=== PATIENT | female | born 1985 | race Caucasian/White ===

== ENCOUNTER 2017-05-06 07:42 | Inpatient (IN) | payer OTHER ==
[~2017-05-06] VITALS: Ht 157.5 cm; Wt 110.5 kg
[~2017-05-06 07:42] MED LIST: ACETAMINOPHEN-1 EAC1 PO; ANAPROX DS550 MG PO; ASPIR 8181 MG PO; BACLOFEN20 MG PO; CARVEDILOL12.5 MG PO; DEPAKOTE500 MG; GABAPENTIN300 MG PO; HYDROCHLOROTH12.5 M1 PO; HYDROCHLOROTH12.5 MG PO; LIPITOR40 MG PO; METFORMIN HCL500 MG PO; METOPROLOL TART25 MG PO; NAPROXEN500 MG PO; NITROSTAT0.4 MG SL; NORCO 5-325 TA1 EACH PO; PRENATABS FA T1 EACH PO; PROAIR HFA8.5 GM IH; PROPRANOLOL HCL40 MG PO; RANITIDINE HCL150 MG PO; SPRINTEC1 EACH PO; TOPROL XL25 MG PO; TRAMADOL HCL50 MG PO; ZOFRAN4 MG PO
[2017-05-06] MEDS ORDERED: ATENOLOL25 MG PO (08:06)
[2017-05-06] MEDS ORDERED: ATORVASTATIN CA40 MG PO (08:07)
[2017-05-06] MEDS ORDERED: VENTOLIN HFA18 GM INH (11:16)
[2017-05-06] MEDS ORDERED: ADVIL200 MG PO (11:17)
--- NOTE | 2017-05-07 18:46 | EKG ---
[facility] [address] [facility] [place], [place] [address] Signed Normal sinus rhythm Normal ECG When compared with ECG of 26-JAN-2017 21:31, Questionable change in QRS axis Confirmed by KARLA HAYWOOD MD ([id number]) on 05/07/2017 6:46:00 PM Electronically Signed By: KARLA HAYWOOD MD 05/07/17 1846 PATIENT NAME: DOUGLAS CAMPBELL Electrocardiogram DATE OF : 85 PHYSICIAN: KARLA HAYWOOD MD REPORT #: [id number] REPORT IS CONFIDENTIAL AND NOT TO BE RELEASED WITHOUT AUTHORIZATION
[2017-05-08] MEDS ORDERED: PREDNISONE20 MG PO (08:11)
[2017-05-08] MEDS ORDERED: LORAZEPAM1 MG PO (08:12)
--- NOTE | 2017-05-09 10:19 | EKG ---
[facility] [address] [facility] [place] [address] Signed Sinus bradycardia with sinus arrhythmia Abnormal ECG No previous ECGs available Confirmed by CARYN MENDES MD ([id number]) on 05/09/2017 10:19:34 AM Electronically Signed By: CARYN MENDES MD 05/09/17 1019 PATIENT NAME: DOUGLAS CAMPBELL Electrocardiogram DATE OF : [birth year] PHYSICIAN: CARYN MENDES MD REPORT #: [id number] REPORT IS CONFIDENTIAL AND NOT TO BE RELEASED WITHOUT AUTHORIZATION
== END 2017-05-08 10:20 | disposition home or self-care (01) | DRG 198 ==
LOC: ED 07:42 → MS 07:43
PROVIDERS: ADMIT Internal Medicine
DX: D86.9 Sarcoidosis, unspecified (principal); E11.9 Type 2 diabetes mellitus without complications; Z79.82 Long term (current) use of aspirin; I10 Essential (primary) hypertension; E78.5 Hyperlipidemia, unspecified; I25.2 Old myocardial infarction; F31.9 Bipolar disorder, unspecified; Z87.891 Personal history of nicotine dependence; Z79.84 Long term (current) use of oral hypoglycemic drugs
CPT/HCPCS: 36415; 71020; 80048; 80053; 84484; 84703; 85025; 93005; 93010; 93306; 96374; 96375; 96376; 99285; G0378; J2270; J2405; J3010; J7512

== ENCOUNTER 2017-06-25 06:03 | Emergency (ER) | payer OTHER ==
[~2017-06-25] VITALS: Ht 157.5 cm; Wt 110.2 kg
[~2017-06-25 06:03] MED LIST changes: +ADVIL200 MG PO; +ATENOLOL25 MG PO; +ATORVASTATIN CA40 MG PO; +LORAZEPAM1 MG PO; +PREDNISONE20 MG PO; +VENTOLIN HFA18 GM INH
[2017-06-25] MEDS ORDERED: PREDNISONE10 MG PO (06:22)
[2017-06-25] MEDS ORDERED: CYCLOBENZAPRINE10 MG PO (07:01)
== END 2017-06-25 07:15 | disposition home or self-care (01) ==
LOC: ED 06:03
DX: R25.2 Cramp and spasm (principal); I10 Essential (primary) hypertension; I25.2 Old myocardial infarction; F31.9 Bipolar disorder, unspecified; Z98.51 Tubal ligation status; Z79.899 Other long term (current) drug therapy; Z79.52 Long term (current) use of systemic steroids; Z79.82 Long term (current) use of aspirin
CPT/HCPCS: 99283

== ENCOUNTER 2017-06-27 08:18 | Emergency (ER) | payer OTHER ==
[~2017-06-27] VITALS: Ht 157.5 cm; Wt 111.1 kg
[~2017-06-27 08:18] MED LIST changes: +CYCLOBENZAPRINE10 MG PO; +PREDNISONE10 MG PO
[2017-06-27] MEDS ORDERED: CYMBALTA30 MG PO (08:52)
[2017-06-27] MEDS ORDERED: XANAX0.5 MG PO (09:10)
--- NOTE | 2017-06-27 17:18 | EKG ---
[facility] [address] [facility] [place] [address] Signed Normal sinus rhythm Normal ECG When compared with ECG of 06-MAY-2017 20:37, Borderline criteria for Inferior infarct are no longer present Nonspecific T wave abnormality no longer evident in Inferior leads Confirmed by KARLA HAYWOOD MD ([id number]) on 06/27/2017 5:18:14 PM Electronically Signed By: KARLA HAYWOOD MD 06/27/17 1718 PATIENT NAME: DOUGLAS CAMPBELL Electrocardiogram DATE OF : [birth year] PHYSICIAN: KARLA HAYWOOD MD REPORT #: [id number] REPORT IS CONFIDENTIAL AND NOT TO BE RELEASED WITHOUT AUTHORIZATION
== END 2017-06-27 09:36 | disposition home or self-care (01) ==
LOC: ED 08:18
DX: R07.9 Chest pain, unspecified (principal); F41.0 Panic disorder [episodic paroxysmal anxiety]; D86.9 Sarcoidosis, unspecified; I10 Essential (primary) hypertension; F31.9 Bipolar disorder, unspecified; I25.2 Old myocardial infarction; Z79.82 Long term (current) use of aspirin; Z79.52 Long term (current) use of systemic steroids; Z87.891 Personal history of nicotine dependence; Z98.51 Tubal ligation status; Z79.899 Other long term (current) drug therapy
CPT/HCPCS: 71010; 80053; 84484; 85025; 93005; 93010; 96374; 96375; 99284; J1170; J2060

== ENCOUNTER 2017-12-04 22:02 | Emergency (ER) | payer OTHER ==
[~2017-12-04] VITALS: Ht 157.5 cm; Wt 108.9 kg
--- OUTSIDE RECORDS SUMMARY | ~2017-12-04 | XMS | Clinical Summary ---
Demographics + + + | Address | [address] | | | [place] [address] | + + + | Home Phone | | + + + | Preferred Language | Unknown | + + + | Marital Status | | + + + | Zoroastrian Affiliation | NON | + + + [...] | Unavailable | + + + Support +------+ +---------+ + | Name | Relationship | Address | Phone | +------+ +---------+ + ECON | Unknown | | +------+ +---------+ + Care Team Providers + +------+ + | Care Customer Success Specialist Name | Role | Phone | + +------+ + | Balbir Mercer NP | PP | | + +------+ + Source Comments KAYY is fully live on both [facility] Ambulatory and [facility] InPatient.[facility] Allergies No Known Allergies Current Medications + [...] oral tablet,delayed | daily | | | 20 | | e | | release (DR/EC) | | | | 17 | | | + + +--------+---------+------+------+-------+ | atenolol 25 mg | Take by mouth. | | | 04/1 | | Activ | | oral tablet | | | | 05/08 | | e | | | | | | 17 | | | + + +--------+---------+------+------+-------+ | atorvastatin 40 mg | Take by mouth. | | | 04/0 | | Activ | | oral tablet | | | | 20 | | e | | | | [...]
--- OUTSIDE RECORDS SUMMARY | ~2017-12-04 | XMS | Clinical Summary ---
Demographics + + + | Address | [address] | | | [place] [address] | + + + | Home Phone [...] Team Providers + +------+ + | Care Consumer Attorney Name | Role | Phone | + +------+ + | Balbir Mercer NP | PP | | + +------+ + Source Comments KAYY is fully live on both [facility] Ambulatory and [facility] InPatient.[facility] Allergies No Known Allergies Current [...]
[~2017-12-04 22:02] MED LIST changes: +CYMBALTA30 MG PO; +XANAX0.5 MG PO
== END 2017-12-04 22:48 | disposition left against medical advice (07) ==
LOC: ED 22:02
DX: Z53.21 Procedure and treatment not carried out due to patient leaving prior to being seen by health care provider (principal)

== ENCOUNTER 2017-12-10 08:50 | Emergency (ER) | payer OTHER ==
[~2017-12-10] VITALS: Ht 157.5 cm; Wt 113.4 kg
--- OUTSIDE RECORDS SUMMARY | ~2017-12-10 | XMS | Clinical Summary ---
Demographics + + + | Address | [address] | | | [place] [address] | + + + | Home Phone | | + + + | Preferred Language | Unknown | + + + | Marital Status | | + + + | Denominational Affiliation | NON | + + + [...] Team Providers + +------+ + | Care Heating And Cooling Technician Name | Role | Phone | + +------+ + | Balbir Mercer FOREPART LASTER | PP | | + +------+ + Source Comments KAYY is fully live on both [facility] Ambulatory and [facility] InPatient.[facility] Allergies No Known [...] 07/29/2016 | | | (FLU SHOT) | 7 | | | + + + + + Results Not on filefrom Last 3 Months
--- OUTSIDE RECORDS SUMMARY | ~2017-12-10 | XMS | Clinical Summary ---
Demographics + + + | Address | [address] | | | [place] [address] | + + + | Home Phone | | + + + | Preferred Language | Unknown | + + + | Marital Status | | + + + | Zoroastrianism Affiliation | NON | + + + [...] Team Providers + +------+ + | Care Livestock Buyer Name | Role | Phone | + +------+ + | Balbir Mercer SUSPECT ARTIST | PP | | + +------+ + Source Comments KAYY is fully live on both [facility] Ambulatory and [facility] InPatient.[facility] Allergies No Known Allergies Current Medications [...]
== END 2017-12-10 09:03 | disposition home or self-care (01) ==
LOC: ED 08:50
DX: K08.89 Other specified disorders of teeth and supporting structures (principal)

== ENCOUNTER 2018-02-03 12:39 | Emergency (ER) | payer OTHER ==
[~2018-02-03] VITALS: Ht 157.5 cm; Wt 265.0 kg
--- OUTSIDE RECORDS SUMMARY | 2018-02-03 13:08 | XMS | Clinical Summary ---
Demographics + + + | Address | [address] | | | [place] [address] | + + + | Home Phone | | + + + | Preferred Language | Unknown | + + + | Marital Status | | + + + | Druze Affiliation | NON | + + + | Race | White | + + + | Ethnic Group | Not or | + + + Author + + + | Author | [facility] | + + + | Organization | [facility] | + + + | Address | Unknown | + + + | Phone | Unavailable | + + + Support + + +---------+ + | Name | Relationship | Address | Phone | + + +---------+ + | Arabella Isidro | ECON | Unknown | | + + +---------+ + Care Team Providers + +------+ + | Care Transportation Equipment Painter Name | Role | Phone | + +------+ + | Balbir Mercer INTAKE WORKER | PP | | + +------+ + Source Comments KAYY is fully live on both [facility] Ambulatory and [facility] InPatient.[facility] Allergies No Known Allergies Current Medications + + +--------+---------+------+------+-------+ | Prescription | Sig. | Disp. | Refills | Star | End | Statu | | | | | | t | Date | s | | | | | | Date | | | + + +--------+---------+------+------+-------+ | albuterol 90 | Inhale by mouth. | | | | | Activ | | mcg/actuation | | | | | | e | | inhalation HFA | | | | | | | | aerosol inhaler | | | | | | | + + +--------+---------+------+------+-------+ | aspirin EC 81 mg | Take one tablet | | | 04/0 | | Activ | | oral tablet,delayed | daily | | | 420 | | e | | release (DR/EC) | | | | 17 | | | + + +--------+---------+------+------+-------+ | atenolol 25 mg | Take by mouth. | | | 04/1 | | Activ | | oral tablet | | | | 720 | | e | | | | | | 17 | | | + + +--------+---------+------+------+-------+ | atorvastatin 40 mg | Take by mouth. | | | 04/0 | | Activ | | oral tablet | | | | 4/20 | | e | | | | | | 17 | | | + + +--------+---------+------+------+-------+ | gabapentin 300 mg | Take by mouth. | | | | | Activ | | oral capsule | | | | | | e | + + +--------+---------+------+------+-------+ | metFORMIN 500 mg | Take by mouth. | | | | | Activ | | oral tablet | | | | | | e | + + +--------+---------+------+------+-------+ | MULTIVITAMIN ORAL | Take by mouth. | | | | | Activ | | | | | | | | e | + + +--------+---------+------+------+-------+ | nitroglycerin 0.4 | Place under tongue. | | | 04/0 | | Activ | | mg sublingual | | | | 4/20 | | e | | tablet, sublingual | | | | 17 | | | + + +--------+---------+------+------+-------+ | | Take 1 tablet by | 10 | 0 | 05/3 | | Activ | | HYDROcodone-acetamin | mouth every four | tablet | | 0/20 | | e | | ophen (NORCO) 5-325 | hours as needed. | | | 17 | | | | mg oral tablet | | | | | | | + + +--------+---------+------+------+-------+ Active Problems + + + | Problem | Noted Date | + + + | Sarcoid (HCC) | 04/04/2017 | + + + | Mediastinal adenopathy | 03/12/2017 | + + + Family History + + +------+ + | Medical History | Relation | Name | Comments | + + +------+ + | None | Brother | | | + + +------+ + | None | Child | | | + + +------+ + | None | Father | | | + + +------+ + | None | Mother | | | + + +------+ + | None | Other | | | + + +------+ + | None | Sister | | | + + +------+ + | Amblyopia | Neg Hx | | | + + +------+ + | Blindness | Neg Hx | | | + + +------+ + | Cancer | Neg Hx | | | + + +------+ + | Cataract | Neg Hx | | | + + +------+ + | Diabetes | Neg Hx | | | + + +------+ + | Glasses | Neg Hx | | | + + +------+ + | Glaucoma | Neg Hx | | | + + +------+ + | Heart Disease | Neg Hx | | | + + +------+ + | Macular degeneration | Neg Hx | | | + + +------+ + | Retinal detachment | Neg Hx | | | + + +------+ + | Retinitis pigmentosa | Neg Hx | | | + + +------+ + | Strabismus | Neg Hx | | | + + +------+ + + +------+--------+ + | Relation | Name | Status | Comments | + +------+--------+ + | Brother | | | | + +------+--------+ + | Child | | | | + +------+--------+ + | Father | | | | + +------+--------+ + | Mother | | | | + +------+--------+ + | Other | | | | + +------+--------+ + | Sister | | | | + +------+--------+ + Social History + +-------+ +--------+ + | Tobacco Use | Types | Packs/Day | Years | Date | | | | | Used | | + +-------+ +--------+ + | Former Smoker | | | | Quit: 03/18/2010 | + +-------+ +--------+ + + +---+---+---+ | Smokeless Tobacco: | | | | | Never Used | | | | + +---+---+---+ + + | Comments: quit about 6 years ago | + + + + + | Sex Assigned at | Date Recorded | | | | + + + | Not on file | | + + + Last Filed Vital Signs + + + + | Vital Sign | Reading | Time Taken | + + + + | Blood Pressure | 116/88 | 03/18/2017 12:15 PM PDT | + + + + | Pulse | 58 | 03/18/2017 12:15 PM PDT | + + + + | Temperature | 36.3 C (97.3 F) | 03/18/2017 12:00 PM PDT | + + + + | Respiratory Rate | 16 | 03/18/2017 12:15 PM PDT | + + + + | Oxygen Saturation | 97% | 03/18/2017 12:00 PM PDT | + + + + | Inhaled Oxygen | - | - | | Concentration | | | + + + + | Weight | 117.4 kg (258 lb | 03/18/2017 7:00 AM PDT | | | 13.1 oz) | | + + + + | Height | 157.5 cm (5' 2") | 03/18/2017 7:00 AM PDT | + + + + | Body Mass Index | 47.34 | 03/18/2017 7:00 AM PDT | + + + + Plan of Treatment + + + + + | Health Maintenance | Due Date | Last Done | Comments | + + + + + | INFLUENZA VACCINE | | 07/29/2016 | | | (FLU SHOT) | 8 | | | + + + + + Results Not on filefrom Last 3 Months
--- OUTSIDE RECORDS SUMMARY | 2018-02-03 13:08 | XMS | Encounter Summary ---
Demographics + + + | Address | [address] | | | [place] [address] | + + + | Home Phone | | + + + | Preferred Language | Unknown | + + + | Marital Status | | + + + | Mandaen Affiliation | 1013 | + + + | Race | Unknown | + + + | Ethnic Group | Unknown | + + + Author + + + | Author | [facility] | | | and [place] | + + + | Organization | [facility] | | | and [place] | + + + | Address | Unknown | + + + | Phone | Unavailable | + + + Support + + + + + | Name | Relationship | Address | Phone | + + + + + | Fabio Amaro | ECON | [address] | | | | | [place] | | | | | [address] | | + + + + + | Arabella Isidro | ECON | Unknown | | + + + + + Care Team Providers + +------+ + | Care Telecommunications Equipment Installer Name | Role | Phone | + +------+ + | Balbir Mercer NP | PCP | | + +------+ + Reason for Visit +--------+ + | Reason | Comments | +--------+ + | Other | chest pain/dizziness | +--------+ + Encounter Details +--------+ + + + + | Date | Type | Department | Care Team | Description | +--------+ + + + + | 02/03/ | Telephone | [facility] | Coy Randall | Other (chest | | 2018 | | CARDIOLOGY [address] | MD Selvin [address] | pain/dizziness) | | | | [place], | [address] [place] | | | | | [place] [address] | [place] [address] | | | | | [phone] | [phone] | | | | | | | | +--------+ + + + + Social History + + + +--------+ + | Tobacco Use | Types | Packs/Day | Years | Date | | | | | Used | | + + + +--------+ + | Former Smoker | Cigarettes | 0.5 | 12 | 10/21/1998 - | | | | | | 01/19/2011 | + + + +--------+ + + +---+---+---+ | Smokeless Tobacco: | | | | | Never Used | | | | + +---+---+---+ + + +---------+ + | Alcohol Use | Drinks/We | oz/Week | Comments | | | ek | | | + + +---------+ + | No | 1 | 0.6 | | | | Glasses | | | | | of wine | | | + + +---------+ + + + + | Sex Assigned at | Date Recorded | | | | + + + | Not on file | | + + + as of this encounter Functional Status + + + + | Functional Status | Response | Date of Assessment | + + + + | Are you deaf or do you have serious | No | 01/21/2017 | | difficulty hearing? | | | + + + + | Are you blind or do you have serious | No | 01/21/2017 | | difficulty seeing, even when wearing | | | | glasses? | | | + + + + | Do you have serious difficulty walking or | No | 01/21/2017 | | climbing stairs? (5 years old or older) | | | + + + + | Do you have difficulty dressing or bathing? | No | 01/21/2017 | | (5 years old or older) | | | + + + + | Because of a physical, mental, or emotional | No | 01/21/2017 | | condition, do you have difficulty doing | | | | errands alone such as visiting a doctor's | | | | office or shopping? [15 years old or | | | | older)] | | | + + + + + + + + | Cognitive Status | Response | Date of Assessment | + + + + | Because of a physical, mental, or emotional | No | 01/21/2017 | | condition, do you have serious difficulty | | | | concentrating, remembering, or making | | | | decisions? (5 years old or older) | | | + + + + as of this encounter Plan of Treatment +--------+---------+ + + + | Date | Type | Specialty | Care Team | Description | +--------+---------+ + + + | 02/10/ | Office | Cardiology | Coy Randall | | | 2017 | Visit | | MD Selvin [address] | | | | | | [address] | | | | | | [place] [address] | | | | | | [phone] | | | | | | | | +--------+---------+ + + + as of this encounter Visit Diagnoses Not on filein this encounter"
--- OUTSIDE RECORDS SUMMARY | 2018-02-03 13:08 | XMS | Clinical Summary ---
Demographics + + + | Address | [address] | | | [place] [address] | + + + | Home Phone | | + + + | Preferred Language | Unknown | + + + | Marital Status | | + + + | Mandaen Affiliation | 1013 | + + + | Race | Unknown | + + + | Ethnic Group | Unknown | + + + Author + + + | Author | [facility] | | | and [place] | + + + | Organization | [facility] | | | and [place] | + + + | Address | Unknown | + + + | Phone | Unavailable | + + + Support + + + + + | Name | Relationship | Address | Phone | + + + + + | Fabio Amaro | ECON | [address] | | | | | [place] | | | | | [address] | | + + + + + | Arabella Isidro | ECON | Unknown | | + + + + + Care Team Providers + +------+ + | Care Auto Body Repairer Name | Role | Phone | + +------+ + | Balbir Mercer NP | PP | | + +------+ + Allergies No Known Allergies Current Medications + + +--------+---------+------+------+-------+ | Prescription | Sig. | Disp. | Refills | Star | End | Statu | | | | | | t | Date | s | | | | | | Date | | | + + +--------+---------+------+------+-------+ | metFORMIN | Take 500 mg by mouth | | | | | Activ | | (GLUCOPHAGE) 500 mg | daily (with | | | | | e | | tablet | breakfast). | | | | | | + + +--------+---------+------+------+-------+ | gabapentin | Take 300 mg by mouth | | | | | Activ | | (NEURONTIN) 300 mg | nightly. | | | | | e | | capsule | | | | | | | + + +--------+---------+------+------+-------+ | Multiple | Take 1 tablet by | | | | | Activ | | Vitamins-Minerals | mouth Daily. | | | | | e | | (MULTIVITAMIN ADULT | | | | | | | | PO) | | | | | | | + + +--------+---------+------+------+-------+ | albuterol | Inhale 2 puffs into | | | | | Activ | | (VENTOLIN HFA) 90 | the lungs every 4 | | | | | e | | mcg/puff inhaler | hours as needed for | | | | | | | | Wheezing. | | | | | | + + +--------+---------+------+------+-------+ | atorvaSTATin | Take 1 tablet by | 30 | 1 | 04/0 | | Activ | | (LIPITOR) 40 mg | mouth nightly. | tablet | | 4/20 | | e | | tablet | | | | 17 | | | + + +--------+---------+------+------+-------+ | nitroglycerin | Place 1 tablet under | 30 | 0 | 04/0 | | Activ | | (NITROSTAT) 0.4 mg | the tongue every 5 | tablet | | 4/20 | | e | | SL tablet | minutes as needed | | | 17 | | | | | for Chest pain. | | | | | | + + +--------+---------+------+------+-------+ | aspirin 81 MG | Take one tablet | | 0 | 04/0 | | Activ | | tablet | daily | | | 4/20 | | e | | | | | | 17 | | | + + +--------+---------+------+------+-------+ | atenolol | Take 1 tablet by | 30 | 11 | 04/1 | | Activ | | (TENORMIN) 25 mg | mouth Daily. | tablet | | 7/20 | | e | | tablet | | | | 17 | | | + + +--------+---------+------+------+-------+ | predniSONE | Take 0.5 tablets by | 30 | 1 | 08/2 | | Activ | | (DELTASONE) 20 mg | mouth Daily. | tablet | | 8/20 | | e | | tabletIndications: | | | | 17 | | | | Sarcoid | | | | | | | + + +--------+---------+------+------+-------+ Active Problems + + + | Problem | Noted Date | + + + | Sarcoid | 05/28/2017 | + + + | Chest pain with moderate risk of acute coronary syndrome | 01/19/2017 | + + + | Elevated troponin | 01/19/2017 | + + + | Essential hypertension | 01/19/2017 | + + + | Hilar lymphadenopathy | 01/19/2017 | + + + | Morbid obesity with BMI of 40.0-44.9, adult (HCC) | 01/19/2017 | + + + | Family history of ischemic heart disease before age 50 | 01/19/2017 | + + + | Elevated AST (SGOT) | 01/19/2017 | + + + | Intermittent palpitations | 01/19/2017 | + + + | Chronic midline thoracic back pain | 01/19/2017 | + + + | PCOS (polycystic ovarian syndrome) | | + + + + + | Overview: On metformin | + + Resolved Problems + + + + | Problem | Noted | Resolved | | | Date | Date | + + + + | Mediastinal lymphadenopathy | 01/20/20 | | | | 17 | 7 | + + + + Encounters +--------+ + + + + | Date | Type | Specialty | Care Team | Description | +--------+ + + + + | 02/03/ | Telephone | | Coy Randall | Other (chest | | 2018 | | | MD [facility]vin | pain/dizziness) | +--------+ + + + + from Last 3 Months Immunizations + + + + | Name | Dates Previously Given | Next Due | + + + + | INFLUENZA PF | 07/29/2016 | | | TRIVALENT(PED/ADOL/A | | | | DULT)ARNOLKT | | | + + + + | MMR, 2 DOSE | 11/07/1999 | | | (PED/ADULT) | | | + + + + Family History + + +---------+ + | Medical History | Relation | Name | Comments | + + +---------+ + | Atrial Fibrillation | Brother | 1/2 | | + + +---------+ + | Hypertension | Brother | 1/2 | | + + +---------+ + | Asthma | Father | bill | | + + +---------+ + | Coronary artery | Father | bill | CT | | disease | | | | + + +---------+ + | Diabetes, NIDDM | Father | bill | | + + +---------+ + | Heart disease | Father | bill | | + + +---------+ + | High blood pressure | Father | bill | | + + +---------+ + | High cholesterol | Father | bill | | + + +---------+ + | Vision loss | Father | bill | | + + +---------+ + | Coronary artery | Maternal | | | | disease | Grandmoth | | | | | er | | | + + +---------+ + | Heart failure | Maternal | | from this | | | Grandmoth | | | | | er | | | + + +---------+ + | Arthritis | Mother | Arabella | | | | | Isidro | | + + +---------+ + | COPD | Mother | Arabella | | | | | Isidro | | + + +---------+ + | Cancer | Mother | Arabella | | | | | Isidro | | + + +---------+ + | Coronary artery | Mother | Arabella | | | disease | | Isidro | | + + +---------+ + | Depression | Mother | Arabella | | | | | Isidro | | + + +---------+ + | Diabetes, NIDDM | Mother | Arabella | | | | | Isidro | | + + +---------+ + | Heart disease | Mother | Arabella | | | | | Isidro | | + + +---------+ + | High blood pressure | Mother | Arabella | | | | | Isidro | | + + +---------+ + | High cholesterol | Mother | Arabella | | | | | Isidro | | + + +---------+ + + +---------+ + + | Relation | Name | Status | Comments | + +---------+ + + | Brother | 1/2 | Alive | | + +---------+ + + | Father | bill | Alive | | + +---------+ + + | Maternal Grandmother | | | | + +---------+ + + | Mother | Arabella | Alive | | | | Isidro | | | + +---------+ + + | Sister | 1/2 | Alive | | + +---------+ + + Social History + + + [...] | | + +---+---+---+ + + | Tobacco Cessation: Counseling Given: No | + + + + +---------+ + | Alcohol Use [...] + + + | Blood Pressure | 120/82 | 06/16/2017 1309 PDT | + + + + | Pulse | 66 | 06/16/20171308 PDT | + + + + | Temperature | 35.7 C (96.3 F) | 05/28/2017 1143 PDT | + + + + | Respiratory Rate | 16 | 06/16/2017 1118 PDT | + + + + | Oxygen Saturation | 98% | 06/16/20171308 PDT | + + + + | Inhaled Oxygen | - | - | | Concentration | | | + + + + | Weight | 116.1 kg (255 lb | 06/16/20171308 PDT | | | 14.4 oz) | | + + + + | Height | 157.5 cm (5' 2") | 06/16/20171308 PDT | + + + + | Body Mass Index | 46.8 | 06/16/20171308 PDT | + + + + Plan of Treatment +--------+---------+ + + + | Date | Type | Specialty | Care Team | Description | +--------+---------+ + + + | 02/10/ | Office | | Coy Randall | | | 2018 | Visit | | MD Selvin [address] | | | | | | [address] | | | | | | [place] [address] | | | | | | [phone] | | | | | | | | +--------+---------+ + + + + + + + + | Health Maintenance | Due Date | Last Done | Comments | + + + + + | Vaccine: | | | | | Dtap/Tdap/Td (1 - | 4 | | | | Tdap) | | | | + + + + + | CERVICAL CANCER | | | | | SCREENING (PAP EVERY | 6 | | | | 3 YEARS 21-64 ) | | | | + + + + + | Vaccine: Influenza | | 07/29/2016 | | | (Season Ended) | 8 | | | + + + + + Results Not on filefrom Last 3 Months Insurance + +--------+ +--------+ +---------+ | Payer | Benefi | Subscriber | Type | Phone | Address | | | t Plan | ID | | | | | | / | | | | | | | Group | | | | | + +--------+ +--------+ +---------+ | [employer] | [employer] | [id number] | Medica | [phone] | | | MEDICAID HMO | HEALTH | | id | [id number] | | | | [place] | | | | | | | [place] | | | | | + +--------+ +--------+ +---------+ + +--------+ +--------+ + + | Guarantor Name | Accoun | Relation to | Date | Phone | Billing Address | | | t Type | Patient | of | | | | | | | | | | + +--------+ +--------+ + + | DOUGLAS AMARO | Person | Self [birth year] | Home: | [address] | | | al/Fam | | 1984 | [phone] | [place], [place] | | | [place]c | | | [phone] | [address] | + +--------+ +--------+ + +
--- OUTSIDE RECORDS SUMMARY | 2018-02-03 13:08 | XMS | Clinical Summary ---
Demographics + + + | Address | [address] | | | [place] [address] | + + + | Home Phone | | + + + | Preferred Language | Unknown | + + + | Marital Status | | + + + | Anglican Affiliation | NON | + + + [...] Team Providers + +------+ + | Care Senior Biostatistician/Group Leader Name | Role | Phone | + +------+ + | Balbir Mercer RADIOLOGY TEACHER | PP | | + +------+ + Source Comments KAYY is fully live on both [facility] Ambulatory and [facility] InPatient.[facility] Allergies No Known Allergies Current Medications [...]
--- OUTSIDE RECORDS SUMMARY | 2018-02-03 13:09 | XMS | Encounter Summary ---
Demographics + + + | Address | [address] | | | [place] [address] | + + + | Home Phone | | + + + | Preferred Language | Unknown | + + + | Marital Status | | + + + | Restorationism Affiliation | 1013 | + + + | Race | Unknown | + + + | Ethnic Group | Unknown | + + + Author + + + | Author | [facility] | | | and [place] | + + + | Organization | [facility] | | | and [...] [place] | | | | | [address] | | + + + + + | Arabella Isidro | ECON | Unknown | | + + + + + Care Team Providers + +------+ + | Care Billing Representative Name | Role | Phone | + [...] + | 02/03/ | Telephone | [facility] | Coy Randall | Other (chest | | 2018 | | CARDIOLOGY [address] | MD Selvin [address] | pain/dizziness) | | | | [place], | [address] [place] | | | | | [place] [address] | [place] [address] | | | | | [phone] | [phone] | | | | | | | [...] | | | | [place] [address] | | | | | | [phone] | | | | | | | | +--------+---------+ + + + as of this encounter Visit Diagnoses Not on filein this encounter"
--- OUTSIDE RECORDS SUMMARY | 2018-02-03 13:09 | XMS | Clinical Summary ---
Demographics + + + | Address | [address] | | | [place] [address] | + + + | Home Phone | | + + + | Preferred Language | Unknown | + + + | Marital Status | | + + + | Hindu Affiliation | 1013 | + + + | Race | Unknown | + + + | Ethnic Group | Unknown | + + + Author + + + | Author | [facility] | | | and [place] | + + + | Organization | [facility] | | | and [...] [place] | | | | | [address] | | + + + + + | Arabella Isidro | ECON | Unknown | | + + + + + Care Team Providers + +------+ + | Care Automotive Dismantler Name | Role | Phone | + [...] Coronary artery | Father | bill | [place] | | disease | | | | [...] | | | | [place] [address] | | | | | | [phone] | | | | | | | [...] | mc | | | [phone] | [phone] | + +--------+ +--------+ + +
[2018-02-03] MEDS ORDERED: PREDNISONE20 MG PO (14:56)
[2018-02-03] MEDS ORDERED: VENTOLIN HFA18 GM INH (14:57)
--- NOTE | 2018-02-03 17:14 | EKG ---
[facility] [address] [facility] [place] [address] Signed Normal sinus rhythm Normal ECG When compared with ECG of 27-JUN-2017 08:20, No significant change was found Confirmed by CARYN MENDES MD ([id number]) on 02/03/2018 5:14:37 PM Electronically Signed By: CARYN MENDES MD 02/03/18 1714 PATIENT NAME: DOUGLAS CAMPBELL Electrocardiogram DATE OF : [birth year] PHYSICIAN: CARYN MENDES MD REPORT #: [id number] REPORT IS CONFIDENTIAL AND NOT TO BE RELEASED WITHOUT AUTHORIZATION
== END 2018-02-03 15:30 | disposition home or self-care (01) ==
LOC: ED 12:39
DX: J40 Bronchitis, not specified as acute or chronic (principal); J98.01 Acute bronchospasm; R07.2 Precordial pain; D86.9 Sarcoidosis, unspecified; I10 Essential (primary) hypertension; I25.2 Old myocardial infarction; Z79.82 Long term (current) use of aspirin; Z79.899 Other long term (current) drug therapy; Z79.84 Long term (current) use of oral hypoglycemic drugs
CPT/HCPCS: 71046; 80053; 84484; 85025; 93005; 93010; 99284; J7512

== ENCOUNTER 2018-02-23 11:56 | Emergency (ER) | payer OTHER ==
[~2018-02-23] VITALS: Ht 157.5 cm; Wt 118.0 kg
[2018-02-23] MEDS ORDERED: AMOXICILLIN500 MG PO (12:15)
--- NOTE | 2018-02-24 08:03 | EKG ---
[facility] [address] [facility] [place], [place] [address] Signed Normal sinus rhythm Normal ECG When compared with ECG of 03-FEB-2018 12:44, ST elevation now present in Inferior leads Confirmed by KARLA HAYWOOD MD ([id number]) on 02/24/2018 8:03:45 AM Electronically Signed By: KARLA HAYWOOD MD 02/24/18 0803 PATIENT NAME: DOUGLAS CAMPBELL Electrocardiogram DATE OF : [birth year] PHYSICIAN: KARLA HAYWOOD MD REPORT #: [id number] REPORT IS CONFIDENTIAL AND NOT TO BE RELEASED WITHOUT AUTHORIZATION
--- NOTE | 2018-02-24 08:04 | EKG ---
[facility] [address] [facility] [place], [place] [address] Signed Sinus bradycardia with sinus arrhythmia Otherwise normal ECG When compared with ECG of 23-FEB-2018 12:02, (Unconfirmed) ST no longer elevated in Inferior leads Confirmed by KARLA HAYWOOD MD ([id number]) on 02/24/2018 8:03:54 AM Electronically Signed By: KARLA HAYWOOD MD 02/24/18 0804 PATIENT NAME: DOUGLAS CAMPBELL Electrocardiogram DATE OF : [birth year] PHYSICIAN: KARLA HAYWOOD MD REPORT #: [id number] REPORT IS CONFIDENTIAL AND NOT TO BE RELEASED WITHOUT AUTHORIZATION
== END 2018-02-23 19:32 | disposition short-term general hospital (02) ==
LOC: ED 11:56
DX: I21.4 Non-ST elevation (NSTEMI) myocardial infarction (principal); D86.9 Sarcoidosis, unspecified; M54.9 Dorsalgia, unspecified; I10 Essential (primary) hypertension; Z79.82 Long term (current) use of aspirin; Z79.899 Other long term (current) drug therapy; Z79.84 Long term (current) use of oral hypoglycemic drugs
CPT/HCPCS: 71045; 80053; 83690; 84484; 84703; 85025; 85610; 85730; 93005; 93010; 96374; 96375; 96376; 99291; 99292; J1170; J1644; J2060; J2405

== ENCOUNTER 2018-03-29 16:23 | Emergency (ER) | payer OTHER ==
[~2018-03-29] VITALS: Ht 157.5 cm; Wt 118.0 kg
[~2018-03-29 16:23] MED LIST changes: +AMOXICILLIN500 MG PO
[2018-03-29] MEDS ORDERED: NITROGLYCERIN0.4 MG SL (16:32)
[2018-03-29] MEDS ORDERED: CLOPIDOGREL75 MG PO (16:32)
[2018-03-29] MEDS ORDERED: METOPROLOL TART25 MG PO (16:32)
[2018-03-29] MEDS ORDERED: PLAVIX75 MG PO (16:42)
[2018-03-29] MEDS ORDERED: METOPROLOL SUCC25 MG PO (16:42)
== END 2018-03-29 16:50 | disposition home or self-care (01) ==
LOC: ED 16:23
DX: Z76.0 Encounter for issue of repeat prescription (principal); I10 Essential (primary) hypertension; Z79.82 Long term (current) use of aspirin; Z79.84 Long term (current) use of oral hypoglycemic drugs; Z79.899 Other long term (current) drug therapy
CPT/HCPCS: 99281

== ENCOUNTER 2018-04-10 13:31 | Emergency (ER) | payer OTHER ==
[~2018-04-10] VITALS: Ht 157.5 cm; Wt 118.0 kg
[~2018-04-10 13:31] MED LIST changes: +CLOPIDOGREL75 MG PO; +METOPROLOL SUCC25 MG PO; +NITROGLYCERIN0.4 MG SL; +PLAVIX75 MG PO
[2018-04-10] MEDS ORDERED: PROMETHAZINE12.5 M1 PO (17:35)
--- NOTE | 2018-04-11 08:13 | EKG ---
[facility] [address] [facility] [place], [place] [address] Signed Normal sinus rhythm Normal ECG No previous ECGs available Confirmed by KARLA HAYWOOD MD ([id number]) on 04/11/2018 8:13:23 AM Electronically Signed By: KARLA HAYWOOD MD 04/11/188[address] PATIENT NAME: DOUGLAS CAMPBELL Electrocardiogram DATE OF : [birth year] PHYSICIAN: KARLA HAYWOOD MD REPORT #: [id number] REPORT IS CONFIDENTIAL AND NOT TO BE RELEASED WITHOUT AUTHORIZATION
== END 2018-04-10 18:00 | disposition home or self-care (01) ==
LOC: ED 13:31
DX: F32.9 Major depressive disorder, single episode, unspecified (principal); R11.0 Nausea; I10 Essential (primary) hypertension; Z79.82 Long term (current) use of aspirin; Z79.899 Other long term (current) drug therapy
CPT/HCPCS: 80053; 80176; 81001; 84443; 84703; 85025; 93005; 93010; 99284; G0480

== ENCOUNTER 2018-06-14 14:50 | Emergency (ER) | payer OTHER ==
[~2018-06-14] VITALS: Ht 157.5 cm; Wt 118.0 kg
[~2018-06-14 14:50] MED LIST changes: +PROMETHAZINE12.5 M1 PO
[2018-06-14] MEDS ORDERED: ULTRAM50 MG PO (17:01)
--- NOTE | 2018-06-15 13:52 | EKG ---
[facility] [address] [facility] [place] [address] Signed Normal sinus rhythm Normal ECG When compared with ECG of 10-APR-2018 13:41, No significant change was found Confirmed by CARYN MENDES MD ([id number]) on 06/15/2018 1:52:47 PM Electronically Signed By: CARYN MENDES MD 06/15/18 1352 PATIENT NAME: DOUGLAS CAMPBELL DEVAN Electrocardiogram DATE OF : [birth year] PHYSICIAN: CARYN MENDES MD REPORT #: [id number] REPORT IS CONFIDENTIAL AND NOT TO BE RELEASED WITHOUT AUTHORIZATION
== END 2018-06-14 17:12 | disposition home or self-care (01) ==
LOC: ED 14:50
DX: R07.89 Other chest pain (principal); D86.9 Sarcoidosis, unspecified; I10 Essential (primary) hypertension; F31.9 Bipolar disorder, unspecified; Z79.899 Other long term (current) drug therapy; Z79.82 Long term (current) use of aspirin
CPT/HCPCS: 71045; 80053; 83880; 84484; 85025; 85379; 93005; 93010; 99285

== ENCOUNTER 2018-06-18 16:22 | Emergency (ER) | payer OTHER ==
[~2018-06-18] VITALS: Ht 157.5 cm; Wt 123.9 kg
[~2018-06-18 16:22] MED LIST changes: +ULTRAM50 MG PO
== END 2018-06-18 17:26 | disposition home or self-care (01) ==
LOC: ED 16:22
DX: S93.602A Unspecified sprain of left foot, initial encounter (principal); I10 Essential (primary) hypertension; Z87.891 Personal history of nicotine dependence; Z79.899 Other long term (current) drug therapy; X58.XXXA Exposure to other specified factors, initial encounter; Y93.02 Activity, running
CPT/HCPCS: 73630; 99283

== ENCOUNTER 2018-10-22 23:03 | Emergency (ER) | payer OTHER ==
[~2018-10-22] VITALS: Ht 157.5 cm; Wt 124.0 kg
--- OUTSIDE RECORDS SUMMARY | 2018-10-22 23:08 | XMS ---
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 Details: [facility] CRITERIA MET - Group Notification CARE PROVIDERS PAIGE PATRICK Physician Crop Supervisor 06/15/2018-Current PHONE: [phone] MARISELA VITAL Primary Care Current PHONE: [phone] Ronak Perez Primary Care Current PHONE: Unknown Darrell has no Care Guidelines for this patient. Care History Medical/Surgical 06/19/2018 [facility] - PATIENTLY CURRENTLY HAS ELZBIETA PATRICK PCP. - PATIENT HAS FOLLOW UP WITH PCP IN THE OFFICE BUT NEEDS TO SEE PRINT PRODUCTION MANAGER. - CHW REFERRING PATIENT TO [facility] TO HELP PATIENT WITH FURTHER MANAGEMENT OF HEALTH. - [facility] CAN BE CONTACTED- ADOLFO- [phone]. [place] VISIT COUNT (12 MO.) 9 IZ[facility]LLA Yan TOTAL 9 NOTE: Visits indicate total known visits. 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) drug therapy - Exposure to other specified factors, initial encounter 06/14/2018 14:51 [place] [place] TYPE: Emergency COMPLAINT: - CHEST PAIN DIAGNOSES: - penitentiary (current) use of aspirin - Other chest pain - Precordial pain - Sarcoidosis, unspecified - Essential (primary) hypertension - Bipolar disorder, unspecified - Other job compositor (current) drug therapy 04/10/2018 13:31 [place] [place] TYPE: Emergency COMPLAINT: - POSS OD DIAGNOSES: - Other skilled nursing (current) drug therapy - Essential (primary) hypertension - Encounter for other general examination - Major depressive disorder, single episode, unspecified - penitentiary (current) use of aspirin - Nausea 03/29/2018 16:23 [place] [place] TYPE: Emergency COMPLAINT: - MEDICATION REFILL REQUEST DIAGNOSES: - penitentiary (current) use of aspirin - Encounter for issue of repeat prescription - INTERMEDIATE (CURRENT) USE OF ORAL HYPOGLYCEMIC DRUGS - Other job compositor (current) drug therapy - traffic checker (current) use of oral hypoglycemic drugs - Essential (primary) hypertension 02/23/2018 11:56 [place] [place] TYPE: Emergency COMPLAINT: - CHEST PAIN DIAGNOSES: - Essential (primary) hypertension - penitentiary (current) use of oral hypoglycemic drugs - Non-ST elevation (NSTEMI) myocardial infarction - Sarcoidosis, unspecified - Dorsalgia, unspecified - traffic checker (current) use of aspirin - Other skilled nursing (current) drug therapy - INTERMEDIATE (CURRENT) USE OF ORAL HYPOGLYCEMIC DRUGS - Nausea with vomiting, unspecified 02/03/2018 12:39 [place] TYPE: Emergency COMPLAINT: - CHEST PAIN DIAGNOSES: - Essential (primary) hypertension - Other skilled nursing (current) drug therapy - Acute bronchospasm - Sarcoidosis, unspecified - Bronchitis, not specified as acute or chronic - penitentiary (current) use of oral hypoglycemic drugs - penitentiary (current) use of aspirin - Old myocardial infarction - INTERMEDIATE (CURRENT) USE OF ORAL HYPOGLYCEMIC DRUGS - Precordial pain 12/10/2017 08:50 IZABELLA [place] TYPE: Emergency COMPLAINT: - R SIDE TOOTH PAIN DIAGNOSES: - OTHER SPECIFIED DISORDERS OF TEETH AND SUPPORTING STRUCTURES - Other specified disorders of teeth and supporting structures 12/04/2017 22:02 I[facility]LLA [facility] TYPE: Emergency COMPLAINT: - DENTAL PAIN DIAGNOSES: - OTHER SPECIFIED DISORDERS OF TEETH AND SUPPORTING STRUCTURES - Procedure and treatment not carried out due to patient leaving prior to being seen by health care provider - Other specified disorders of teeth and supporting structures INPATIENT VISIT TRACKING (12 MO.) 02/23/2018 20:45 [facility] TYPE: Medical Surgical COMPLAINT: - NON-STEMI DIAGNOSES: 0. Other chest pain 1. Non-ST elevation (NSTEMI) myocardial infarction 2. Body mass index (BMI) 45.0-49.9, adult 3. Polycystic ovarian syndrome 4. Cannabis use, unspecified, uncomplicated 5. Morbid (severe) obesity due to excess calories 6. Headache 7. Essential (primary) hypertension 8. Rheumatic disorders of both mitral and tricuspid valves 9. Anxiety disorder, unspecified 10. Sarcoidosis of lung 11. Hyperlipidemia, unspecified 12. 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 traffic checker (current) use of aspirin 14. traffic checker (current) use of systemic steroids 15. Personal history of nicotine dependence 16. Old myocardial infarction [email or web address]
--- NOTE | 2018-10-23 22:12 | EKG ---
[facility] [address] [facility] [place], [place] [address] Signed Sinus bradycardia Otherwise normal ECG When compared with ECG of 14-JUN-2018 14:56, No significant change was found Confirmed by COLT SANTOS DO ([id number]) on 10/23/2018 10:12:00 PM Electronically Signed By: COLT SANTOS DO 10/23/18 2212 PATIENT NAME: DOUGLAS CAMPBELL DEVAN Electrocardiogram DATE OF : [birth year] PHYSICIAN: COLT SANTOS DO REPORT #: [id number] REPORT IS CONFIDENTIAL AND NOT TO BE RELEASED WITHOUT AUTHORIZATION
--- NOTE | 2018-10-23 22:17 | EKG ---
[facility] [address] [facility] [place], [place] [address] Signed Sinus bradycardia Otherwise normal ECG When compared with ECG of 22-OCT-2018 23:34, (Unconfirmed) No significant change was found Confirmed by COLT SANTOS DO ([id number]) on 10/23/2018 10:17:46 PM Electronically Signed By: COLT SANTOS DO 10/23/18 2217 PATIENT NAME: FRANCISCO CAMPBELLTANNA HARTMAN Electrocardiogram DATE OF : [birth year] PHYSICIAN: COLT SANTOS DO REPORT #: [id number] REPORT IS CONFIDENTIAL AND NOT TO BE RELEASED WITHOUT AUTHORIZATION
== END 2018-10-23 05:58 | disposition home or self-care (01) ==
LOC: ED 23:03
DX: R07.89 Other chest pain (principal); I10 Essential (primary) hypertension; F31.9 Bipolar disorder, unspecified; I25.2 Old myocardial infarction; Z79.899 Other long term (current) drug therapy
CPT/HCPCS: 36415; 71045; 80053; 84484; 85025; 85379; 93005; 93010; 96374; 99285-25; J1885

== ENCOUNTER 2019-08-14 13:59 | Emergency (ER) | payer OTHER ==
[~2019-08-14] VITALS: Ht 157.5 cm; Wt 124.7 kg
--- OUTSIDE RECORDS SUMMARY | ~2019-08-14 | XMS | Encounter Summary ---
Demographics + + + | Address | [address] | | | [place] [address] | + + + | Home Phone | | + + + | Preferred Language | Unknown | + + + | Marital Status | | + + + | Samaritan Affiliation | NON | + + + | Race | White | + + + | Ethnic Group | Not or | + + + Author + + + | Author | [facility] | + + + | Organization | [facility] | + + + | Address | Unknown | + + + | Phone | Unavailable | + + + Support + + +---------+ + | Name | Relationship | Address | Phone | + + +---------+ + | Arabella Isidro | ECON | Unknown | | + + +---------+ + Care Team Providers + +------+ + | Care Fountain Clerk Name | Role | Phone | + +------+ + | Mark Bartlett PA-C | PCP | | + +------+ + Encounter Details +--------+ + + + + | Date | Type | Department | Care Team | Description | +--------+ + + + + | 03/18/ | Pharmacy | Outpatient Retail | | | | 2016 | Visit | [facility] | | | | | | [address] | | | | | | [place], | | | | | | [place] [address] | | | +--------+ + + + + Social History + +-------+ +--------+ + [...] on file | | + + + + + + + | Job Start Date | Occupation | Industry | + + + + | Not on file | Not on file | Not on file | + + + + + + + + | Travel History | Travel Start | Travel End | + + + + + + | No recent travel history available. | + + documented as of this encounter Plan of Treatment Not on filedocumented as of this encounter Visit Diagnoses Not on filedocumented in this encounter"
--- OUTSIDE RECORDS SUMMARY | ~2019-08-14 | XMS | Encounter Summary ---
Demographics + + + | Address | [address] | | | [place] [address] | + + + | Home Phone | | + + + | Preferred Language | Unknown | + + + | Marital Status | | + + + | Sabianism Affiliation | NON | + + + | Race | White | + + + | Ethnic Group | Not or | + + + Author + + + | Author | [facility] | + + + | Organization | [facility] | + + + | Address | Unknown | + + + | Phone | Unavailable | + + + Support + + +---------+ + | Name | Relationship | Address | Phone | + + +---------+ + | Arabella Isidro | ECON | Unknown | | + + +---------+ + Care Team Providers + +------+ + | Care Spice [place] Name | Role | Phone | + +------+ + | Balbir Mercer NP | PCP | | + +------+ + Encounter Details +--------+ + + + + | Date | Type | Department | Care Team | Description | +--------+ + + + + | 03/19/ | Anesthesiologist Assistant Certified | Pulmonary & | [place], | Mediastinal | | 2016 | | Critical Care | [address] | adenopathy (Primary | | | | Medicine at | [address] | Dx) | | | | [facility] | [place], [place] | | | | | [address] | [address] | | | | | [place] Mailcode: | [phone] | | | | | [id number] | | | | | | [address] | | | | | | [place], [place] | | | | | | [address] | | | | | | [phone] | | | +--------+ + + + [...] filedocumented as of this encounter Visit Diagnoses + + | Diagnosis | + + | Mediastinal adenopathy - Primary Enlargement of lymph nodes | + + documented in this encounter"
--- OUTSIDE RECORDS SUMMARY | ~2019-08-14 | XMS | Encounter Summary ---
Demographics + + + | Address | [address] | | | [place] [address] | + + + | Home Phone | | + + + | Preferred Language | Unknown | + + + | Marital Status | | + + + | Hinduism Affiliation | NON | + + + | Race | White | + + + | Ethnic Group | Not or | + + + Author + + + | Author | [facility] | + + + | Organization | [facility] | + + + | Address | Unknown | + + + | Phone | Unavailable | + + + Support + + +---------+ + | Name | Relationship | Address | Phone | + + +---------+ + | Arabella Isidro | ECON | Unknown | | + + +---------+ + Care Team Providers + +------+ + | Care Hydraulic Riveter Name | Role | Phone | + +------+ + | Mark Bartlett PA-C | PCP | | + +------+ + Encounter Details +--------+ + + + + | Date | Type | Department | Care Team | Description | +--------+ + + + + | 03/18/ | Procedure | 6A Intra Op [facility] | | | | 2016 | Pass | [facility] | | | | | | Admitting Desk | | | | | | Located on the 9th | | | | | | floor [address] [facility] | | | | | | [address] | | | | | | [place], [place] | | | | | | [address] | | | +--------+ + + + [...]
--- OUTSIDE RECORDS SUMMARY | ~2019-08-14 | XMS | Clinical Summary ---
Demographics + + + | Address | [address] | | | [place] [address] | + + + | Home Phone | | + + + | Preferred Language | Unknown | + + + | Marital Status | | + + + | Confucianist Affiliation | NON | + + + [...] Team Providers + +------+ + | Care Full Time Babysitter Name | Role | Phone | + +------+ + | Mark Bartlett PA-C | PCP | | + +------+ + Source Comments KAYY is fully live on both [facility] Amb[facility] and [facility] InPatient.[facility] Allergies No Known Allergies Medications + + + +---------+------+------+-------+ | Medication | Sig | Dispensed | Refills | Star | End | Statu | | | | | | t | Date | s | | | | | | Date | | | + + + +---------+------+------+-------+ | albuterol 90 | Inhale by mouth. | | 0 | | | Activ | | mcg/actuation | | | | | | e | | inhalation HFA | | | | | | | | aerosol inhaler | | | | | | | + + + +---------+------+------+-------+ | aspirin EC 81 mg | Take one tablet | | 0 | 04/0 | | Activ | | oral tablet,delayed | daily | | | 4/20 | | e | | release (DR/EC) | | | | 17 | | | + + + +---------+------+------+-------+ | atenolol 25 mg | Take by mouth. | | 0 | 04/1 | | Activ | | oral tablet | | | | 7/20 | | e | | | | | | 17 | | | + + + +---------+------+------+-------+ | atorvastatin 40 mg | Take by mouth. | | 0 | 04/0 | | Activ | | oral tablet | | | | 4/20 | | e | | | | | | 17 | | | + + + +---------+------+------+-------+ | gabapentin 300 mg | Take by mouth. | | 0 | | | Activ | | oral capsule | | | | | | e | + + + +---------+------+------+-------+ | metFORMIN 500 mg | Take by mouth. | | 0 | | | Activ | | oral tablet | | | | | | e | + + + +---------+------+------+-------+ | MULTIVITAMIN ORAL | Take by mouth. | | 0 | | | Activ | | | | | | | | e | + + + +---------+------+------+-------+ | nitroglycerin 0.4 | Place under tongue. | | 0 | 04/0 | | Activ | | mg sublingual | | | | 4/20 | | e | | tablet, sublingual | | | | 17 | | | + + + +---------+------+------+-------+ | | Take 1 tablet by | 10 | 0 | 05/3 | | Activ | | HYDROcodone-acetamin | mouth every four | tablet | | 0/20 | | e | | ophen (NORCO) 5-325 | hours as needed. | | | 17 | | | | mg oral tablet | | | | | | | + + + +---------+------+------+-------+ Active Problems + + + | Problem | Noted Date | + + + | Sarcoid | 04/04/2017 | + + + | [...] | | + + +------+ + | Cataracts | Neg Hx | | | + [...] recent travel history available. | + + Last Filed Vital Signs + + + + + | Vital Sign | Reading | Time Taken | Comments | + + + + + | Blood Pressure | 116/88 | 03/18/2017 12:15 PM | | | | | PDT | | + + + + + | Pulse | 58 | 03/18/2017 12:15 PM | | | | | PDT | | + + + + + | Temperature | 36.3 C (97.3 F) | 03/18/2017 12:00 PM | | | | | PDT | | + + + + + | Respiratory Rate | 16 | 03/18/2017 12:15 PM | | | | | PDT | | + + + + + | Oxygen Saturation | 97% | 03/18/2017 12:00 PM | | | | | PDT | | + + + + + | Inhaled Oxygen | - | - | | | Concentration | | | | + + + + + | Weight | 117.4 kg (258 lb | 03/18/2017 7:00 AM | | | | 13.1 oz) | PDT | | + + + + + | Height | 157.5 cm (5' 2") | 03/18/2017 7:00 AM | | | | | PDT | | + + + + + | Body Mass Index | 47.34 | 03/18/2017 7:00 AM | | | | | PDT | | + + + + + Plan of Treatment + + + + + | Health Maintenance | Due Date | Last Done | Comments | + + + + + | Influenza (Flu) | | 07/29/2016 | | | vaccination (#1) | 9 | | | + + + + + | Pneumococcal | Aged Out | | No longer eligible | | vaccination | | | based on patient's | | | | | age to complete this | | | | | topic | + + + + + Results Not on filefrom Last 3 Months Insurance + +--------+ +--------+-------+---------+--------+ | Payer | Benefi | Subscriber | Effect | Phone | Address | Type | | | t Plan | ID | maldonado | | | | | | / | | Dates | | | | | | Group | | | | | | + +--------+ +--------+-------+---------+--------+ | WINDING INSPECTOR MEDICAID | WINDING INSPECTOR | xxxxxxxx | | | | Medica | | | [place] | | 016-Pr | | | id | | | [place] | | esent | | | | + +--------+ +--------+-------+---------+--------+ + +--------+ +--------+ + + | Guarantor Name | Accoun | Relation to | Date | Phone | Billing Address | | | t Type | Patient | of | | | | | | | | | | + +--------+ +--------+ + + | Dipak Amaro | Person | Self [birth year] | [address] | | | al/Fam | | 1985 | [phone] | [place] | | | mc | | | [address] (Home) | [phone] | + +--------+ +--------+ + + Advance Directives + + + + + | Code Status | Date | Date | Comments | | | Activated | Inactivated | | + + + + + | Full Code | 03/18/2017 | 03/18/2017 | | | | 6:47 AM | 10:53 PM | | + + + + +
--- OUTSIDE RECORDS SUMMARY | ~2019-08-14 | XMS | Encounter Summary ---
Demographics + + + | Address | [address] | | | [place] [address] | + + + | Home Phone | | + + + | Preferred Language | Unknown | + + + | Marital Status | | + + + | Congregational Affiliation | NON | + + + | Race | White | + + + | Ethnic Group | Not or | + + + Author + + + | Author | [facility] | + + + | Organization | [facility] | + + + | Address | Unknown | + + + | Phone | Unavailable | + + + Support + + +---------+ + | Name | Relationship | Address | Phone | + + +---------+ + | Arabella Isidro | ECON | Unknown | | + + +---------+ + Care Team Providers + +------+ + | Care Certified Veterinary Technician Name | Role | Phone | + +------+ + | Balbir Mercer NP | PCP | | + +------+ + Reason for Visit AUTH/CERT +--------+--------+ + + + + | Status | Reason | Specialty | Diagnoses / | Referred By | Referred To | | | | | Procedures | Contact | Contact | +--------+--------+ + + + + | | | | | | | +--------+--------+ + + + + Encounter Details +--------+---------+ + + + | Date | Type | Department | Care Team | Description | +--------+---------+ + + + | 03/18/ | Surgery | [facility]A [facility] | Augie Levy MD | ENDOBRONCHIAL | | 2017 | | [facility] | [address] [facility] | ULTRASOUND AND | | | | Admitting Desk | [address] | BIOPSY; | | | | Located on the 9 | [place], [place] | MEDIASTINOSCOPY; | | | | floor [address] [facility] | [address] | SPECIMEN RESULTS | | | | [address] | [phone] | READ | | | | [place], [place] | | INTRAOPERATIVELY BY | | | | [address] | | PATHOLOGIST ; | | | | | | MICROBIOLOGY x2; | | | | | | SPECIMEN x4 | +--------+---------+ + + + Social History + +-------+ [...] + + documented as of this encounter Last Filed Vital Signs + + + [...] | | + + + + + documented in this encounter Medications at Time of Discharge + + + +---------+ + + | Medication | Sig | Dispensed | Refills | Start | End Date | | | | | | Date | | + + + +---------+ + + | albuterol 90 | Inhale by mouth. | | 0 | | | | mcg/actuation | | | | | | | inhalation HFA | | | | | | | aerosol inhaler | | | | | | + + + +---------+ + + | aspirin EC 81 mg | Take one tablet | | 0 | 01/22/20 | | | oral tablet,delayed | daily | | | 17 | | | release (DR/EC) | | | | | | + + + +---------+ + + | atenolol 25 mg | Take by mouth. | | 0 | 02/04/20 | | | oral tablet | | | | 17 | | + + + +---------+ + + | atorvastatin 40 mg | Take by mouth. | | 0 | 01/22/20 | | | oral tablet | | | | 17 | | + + + +---------+ + + | gabapentin 300 mg | Take by mouth. | | 0 | | | | oral capsule | | | | | | + + + +---------+ + + | | Take 1 tablet by | 10 | 0 | 05/30/20 | | | HYDROcodone-acetamin | mouth every four | tablet | | 17 | | | ophen (NORCO) 5-325 | hours as needed. | | | | | | mg oral tablet | | | | | | + + + +---------+ + + | metFORMIN 500 mg | Take by mouth. | | 0 | | | | oral tablet | | | | | | + + + +---------+ + + | MULTIVITAMIN ORAL | Take by mouth. | | 0 | | | + + + +---------+ + + | nitroglycerin 0.4 | Place under tongue. | | 0 | 01/22/20 | | | mg sublingual | | | | 17 | | | tablet, sublingual | | | | | | + + + +---------+ + + documented as of this encounter Plan of Treatment Not on filedocumented as of this encounter Procedures + +--------+ + + + | Procedure Name | Priori | Date/Time | Associated Diagnosis | Comments | | | ty | | | | + +--------+ + + + | OPERATION RECORD | | 03/19/2017 | | Results for this | | | | 2:27 PM | | procedure are in the | | | | PDT | | results section. | + +--------+ + + + | X-RAY PORTABLE CHEST | Urgent | 03/18/2017 | | Results for this | | 1 VIEW | | 11:24 AM | | procedure are in the | | | | PDT | | results section. | + +--------+ + + + | CULTURE, FUNGAL | Routin | 03/18/2017 | | Results for this | | EXCEPT BLOOD, SKIN, | e | 9:51 AM | | procedure are in the | | HAIR, NAIL | | PDT | | results section. | + +--------+ + + + | CULTURE, TISSUE | Routin | 03/18/2017 | | Results for this | | | e | 9:51 AM | | procedure are in the | | | | PDT | | results section. | + +--------+ + + + | CULTURE, AFB (ALL | Routin | 03/18/2017 | | Results for this | | SPEC TYPES EXCEPT | e | 9:51 AM | | procedure are in the | | BLOOD) | | PDT | | results section. | + +--------+ + + + | GRAM SMEAR ONLY, | Urgent | 03/18/2017 | | Results for this | | STAT | | 9:51 AM | | procedure are in the | | | | PDT | | results section. | + +--------+ + + + | CULTURE, FUNGAL | Routin | 03/18/2017 | | Results for this | | EXCEPT BLOOD, SKIN, | e | 9:44 AM | | procedure are in the | | HAIR, NAIL | | PDT | | results section. | + +--------+ + + + | CULTURE, TISSUE | Routin | 03/18/2017 | | Results for this | | | e | 9:44 AM | | procedure are in the | | | | PDT | | results section. | + +--------+ + + + | CULTURE, AFB (ALL | Routin | 03/18/2017 | | Results for this | | SPEC TYPES EXCEPT | e | 9:44 AM | | procedure are in the | | BLOOD) | | PDT | | results section. | + +--------+ + + + | GRAM SMEAR ONLY, | Urgent | 03/18/2017 | | Results for this | | STAT | | 9:35 AM | | procedure are in the | | | | PDT | | results section. | + +--------+ + + + | HCG URINE, POC | Urgent | 03/18/2017 | Mediastinal | Results for this | | | | 7:36 AM | adenopathy | procedure are in the | | | | PDT | | results section. | + +--------+ + + + | ENDOBRONCHIAL | Electi | 03/18/2017 | Mediastinal | | | ULTRASOUND, | ve | 7:29 AM | lymphadenopathy | | | MEDIASTINOSCOPY | Surgic | PDT | | | | | al | | | | + +--------+ + + + | ANTIBODY SCREEN | Urgent | 03/18/2017 | | Results for this | | | | 6:48 AM | | procedure are in the | | | | PDT | | results section. | + +--------+ + + + | TYPE AND SCREEN | Urgent | 03/18/2017 | | Results for this | | | | 6:48 AM | | procedure are in the | | | | PDT | | results section. | + +--------+ + + + | ABO & RH TYPE | Urgent | 03/18/2017 | | Results for this | | | | 6:48 AM | | procedure are in the | | | | PDT | | results section. | + +--------+ + + + | INTRAPROCEDURE | Routin | 03/18/2017 | Mediastinal | Results for this | | IMAGING | e | 6:47 AM | adenopathy | procedure are in the | | | | PDT | | results section. | + +--------+ + + + | CARDIOLOGY | | 03/18/2017 | | Results for this | | | | 12:00 AM | | procedure are in the | | | | PDT | | results section. | + +--------+ + + + | NON DIRECTOR OF STATE CYTOLOGY | Routin | 03/18/2017 | | Results for this | | | e | | | procedure are in the | | | | | | results section. | + +--------+ + + + | SURGICAL PATHOLOGY | Routin | 03/18/2017 | | Results for this | | | e | | | procedure are in the | | | | | | results section. | + +--------+ + + + documented in this encounter Results OPERATION RECORD (03/19/2017 2:27 PM PDT) + + | Procedure Note | + + | Augie Levy MD - 03/18/2017 11:17 AM PDT Date of Service: 03/18/2017 Attending | | Surgeon:Augie Levy MD Laundry Pricing Clerk(s):RAYSA Reyes | | Preoperative Diagnosis: Mediastinal adenopathy.Postoperative | | Diagnosis: Mediastinal adenopathy.Procedure: Flexible bronchoscopy, endobronchial | | ultrasound, needle aspiration biopsy level 7 and 10R lymph nodes, cervical | | mediastinoscopy biopsy level of 7 and 4R lymph nodes.Indications: Dipak Amaro is a | | 31-year-old lady who was found to have significantly enlarged mediastinal nodes | | including level 7, 4R, and right hilar lymph nodes. This is highly suspicious for a | | malignancy, in particular lymphoma. She is indicated for biopsy of this for | | diagnosis.Description Of Procedure: Ms. Amaro was brought to the operative suite. | | General endotracheal anesthesia induced. A single-lumen ET tube was placed. Flexible | | bronchoscopy was performed. The airway was examined out to the subsegmental level. No | | lesions were identified. The anatomy was normal. This is the first bronchoscopy done on | | this patient and for this diagnosis. Endobronchial ultrasound was now performed. There | | were multiple and large level 7, 4R, and 10R lymph nodes. Needle aspiration biopsy at | | level 7 lymph nodes revealed copious amounts of bloody material with the needle well | | placed in the lymph node. However, on rapid on-site cytology, no lymph node and no | | neoplasm was visualized. The 4R lymph nodes were also biopsied with similar nice | | placement of needle into the lymph node, again with bloody material and on rapid on-site | | cytology, no lymph node and no neoplasm. Hemostasis was verified. The airway was | | suctioned clean. Decision was made to proceed to mediastinoscopy. The patient was | | positioned for cervical mediastinoscopy. A 1.5 cm incision was made above the sternal | | notch, brought down to the pretracheal plane. Pretracheal plane was established down to | | the subcarinal space. Multiple biopsies of subcarinal lymph nodes were taken, sent for | | frozen section, revealed lymph node, no evidence of malignancy. Further workup will be | | done for lymphoma. A portion was also sent for microbiology. A large 4R lymph node was | | also encountered. It was taken out completely and sent for the same things, frozen | | section, lymphoma workup, and microbiology. Approximately 2 cc of lymph node material | | was removed during the cervical mediastinoscopy. Hemostasis was obtained. No material | | was left behind to do this. The incision was closed using multiple layers of Vicryl in | | the strap and platysmal muscles and subcuticular stitch. Sterile dressing was applied. | | Patient was awoken, extubated, taken to recovery room, doing well.Findings: Ms. Quesada | | Sondra had a flexible bronchoscopy which was essentially normal. An endobronchial | | ultrasound of 7 and 10R lymph nodes which revealed bloody material and no lymph node | | material seen, however, cell blocks were created. She then underwent cervical | | mediastinoscopy with biopsy at level 7 and 4R lymph nodes. Good lymph node material | | obtained and frozen section showed no evidence of malignancy.FARTUN Garcia/JANES: | | 03/18/2017 09:50:17DT: 03/18/2017 11:17:46Job #: [id number] | | | | | |Augie Levy MD | |PS/MODL | | | | | | /[id number] | + + X-RAY PORTABLE CHEST 1 VIEW (03/18/2017 11:24 AM PDT) + + | Specimen | + + | | + + + + + | Narrative | Performed At | + + + | EXAM: AR CHEST 1 VIEW 03/18/17 10:42:35 HISTORY: Mediastinal | [facility] | | lymphadenopathy COMPARISON: CTA dated 01/19/17 FINDINGS: The | RADIOLOGY VOICE | | lungs are clear. No consolidation. No pulmonary edema. Cardiac | RECOGNITION | | silhouette is normal. There is increased right paratracheal density. | | | Bilateral hilar lobulation and increased density is noted, | | | corresponding to the adenopathy seen on recent outside CT. No pleural | | | effusion. No pneumothorax. No displaced fractures. | | | IMPRESSION: Evidence of mediastinal and hilar lymphadenopathy; | | | this is better visualized on prior CT. Clear lungs. I have | | | personally reviewed the images and, if necessary, edited the report. | | | I agree with the report as now presented. | | + + + + + | Procedure Note | + + | Service Account, Thang Res In Interface - 03/18/2017 1:05 PM PDT EXAM: AR CHEST 1 | | VIEW 03/18/17 10:42:35 HISTORY: Mediastinal lymphadenopathyCOMPARISON: CTA dated | | 01/19/17FINDINGS: The lungs are clear. No consolidation. No pulmonary edema. Cardiac | | silhouette is normal. There is increased right paratracheal density. Bilateral hilar | | lobulation and increased density is noted, corresponding to the adenopathy seen on | | recent outside CT.No pleural effusion. No pneumothorax. No displaced | | fractures.IMPRESSION:Evidence of mediastinal and hilar lymphadenopathy; this is better | | visualized on prior CT.Clear lungs.I have personally reviewed the images and, if | | necessary, edited the report. I agree with the report as now presented. | |Cardiac silhouette is normal. There is increased right paratracheal density. Bilateral adalgisa r lobulation and increased density is noted, corresponding to the adenopathy seen on recent outside CT. | |No pleural effusion. No pneumothorax. | | | |No displaced fractures. | | | |IMPRESSION: | | | |Evidence of mediastinal and hilar lymphadenopathy; this is better visualized on prior CT. | | | |Clear lungs. | | | | | |I have personally reviewed the images and, if necessary, edited the report. I agree with t he report as now presented. | + + + +---------+ + + | Performing | Address | City/State/Zipcode | Phone Number | | Organization | | | | + +---------+ + + | [facility] | | | | | VOICE RECOGNITION | | | | + +---------+ + + GRAM SMEAR ONLY, STAT (03/18/2017 9:51 AM PDT) + + + + + + | Component | Value | Ref Range | Performed | Pathologist | | | | | At | Signature | + + + + + + | GRAM STAIN | No organisms seen | No organisms | [facility] | | | RESULT | | seen | LABORATORY | | | | | | SERVICES, | | | | | | CORE | | + + + + + + | SMEAR | Direct smear | | [facility] | | | PREPARATION | | | LABORATORY | | | | | | SERVICES, | | | | | | CORE | | + + + + + + | SOURCE BODY | Chest Tissue | | [facility] | | | SITE | | | LABORATORY | | | | | | SERVICES, | | | | | | CORE | | + + + + + + + + | Specimen | + + | Tissue | + + + + + | Narrative | Performed At | + + + | Many WBC present. Level 4 | [facility] | | | LABORATORY | | | SERVICES, CORE | + + + + + + + + | Performing | Address | City/State/Zipcode | Phone Number | | Organization | | | | + + + + + | [facility] | [address] | [place] [address] | | | SERVICES, [place] | [address] | | | + + + + + CULTURE, FUNGAL EXCEPT BLOOD, SKIN, HAIR, NAIL (03/18/2017 9:51 AM PDT) + + | Specimen | + + | Tissue | + + + + + | Narrative | Performed At | + + + | Culture Report: No fungus isolated at 3 weeks. Fungal Smear: | [facility] | | No fungal elements seen | [facility] | | | [place] | + + + + + + + + | Performing | Address | City/State/Zipcode | Phone Number | | Organization | | | | + + + + + | [facility] | [address] | [place] [address] | | | [place] | | | | + + + + + CULTURE, AFB (ALL SPEC TYPES EXCEPT BLOOD) (03/18/2017 9:51 AM PDT) + + | Specimen | + + | Tissue | + + + + + | Narrative | Performed At | + + + | Culture Report: No acid fast bacteria isolated at 6 weeks. AFB | [facility] | | Smear: AFB not detected | [facility] - | | | [place] | + + + + + + + + | Performing | Address | City/State/Zipcode | Phone Number | | Organization | | | | + + + + + | [facility] | [address] | [place] [address] | | | [place] | | | | + + + + + CULTURE, TISSUE (03/18/2017 9:51 AM PDT) + + | Specimen | + + | Tissue | + + + + + | Narrative | Performed At | + + + | Culture Report: No growth No anaerobic organisms isolated | [facility] | | Gram Stain: No polymorphonuclear cells No squamous epithelial | [facility] - | | cells No organisms seen | [place] | + + + + + + + + | Performing | Address | City/State/Zipcode | Phone Number | | Organization | | | | + + + + + | [facility] | [address] | [place] [address] | | | [facility] | | | | + + + + + CULTURE, FUNGAL EXCEPT BLOOD, SKIN, HAIR, NAIL (03/18/2017 9:44 AM PDT) + + | Specimen | + + | Tissue - Thoracic | | structure (body | | structure) | + + + + + | Narrative | Performed At | + + + | Culture Report: No fungus isolated at 3 weeks. Fungal Smear: | [facility] | | No fungal elements seen | [facility] - | | | [place] | + + + + + + + + | Performing | Address | City/State/Zipcode | Phone Number | | Organization | | | | + + + + + | [facility] | [address] | [place] [address] | | | [place] | | | | + + + + + CULTURE, AFB (ALL SPEC TYPES EXCEPT BLOOD) (03/18/2017 9:44 AM PDT) + + | Specimen | + + | Tissue | + + + + + | Narrative | Performed At | + + + | Culture Report: No acid fast bacteria isolated at 6 weeks. AFB | [facility] | | Smear: AFB not detected | [facility] - | | | [place] | + + + + + + + + | Performing | Address | City/State/Zipcode | Phone Number | | Organization | | | | + + + + + | [facility] | [address] | [place] [address] | | | [place] | | | | + + + + + CULTURE, TISSUE (03/18/2017 9:44 AM PDT) + + | Specimen | + + | Tissue - Thoracic | | structure (body | | structure) | + + + + + | Narrative | Performed At | + + + | Culture Report: No growth No anaerobic organisms isolated | [facility] | | Gram Stain: No polymorphonuclear cells No squamous epithelial | [facility] - | | cells No organisms seen | [place] | + + + + + + + + | Performing | Address | City/State/Zipcode | Phone Number | | Organization | | | | + + + + + | [facility] | [address] | [place] [address] | | | [place] | | | | + + + + + GRAM SMEAR ONLY, STAT (03/18/2017 9:35 AM PDT) + + + + + + | Component | Value | Ref Range | Performed | Pathologist | | | | | At | Signature | + + + + + + | GRAM STAIN | No organisms seen | No organisms | [facility] | | | RESULT | | seen | LABORATORY | | | | | | SERVICES, | | | | | | CORE | | + + + + + + | SMEAR | Direct smear | | [facility] | | | PREPARATION | | | LABORATORY | | | | | | SERVICES, | | | | | | CORE | | + + + + + + | SOURCE BODY | Chest Tissue | | [facility] | | | SITE | | | LABORATORY | | | | | | SERVICES, | | | | | | CORE | | + + + + + + + + | Specimen | + + | Tissue - Thoracic | | structure (body | | structure) | + + + + + | Narrative | Performed At | + + + | Many DAY present. | [facility] | | | LABORAT[facility] | | | [facility] [address] | + + + + + + + + | Performing | Address | City/State/Zipcode | Phone Number | | Organization | | | | + + + + + | [facility] | [address] | [place] [address] | | | [place], CORE | [address] | | | + + + + + HCG URINE, POC (03/18/2017 7:36 AM PDT) + + + + + + | Component | Value | Ref Range | Performed | Pathologist | | | | | At | Signature | + + + + + + | HCG URINE, | Negative | Negative | [facility] - | | | POC | | | [facility] | | | | | | [facility] | | | | | | OF CARE | | | | | | TESTS | | + + + + + + + + | Specimen | + + | Urine - Urine | | (substance) | + + + + + + + | Performing | Address | City/State/Zipcode | Phone Number | | Organization | | | | + + + + + | [facility] | [address] | [place], [place] | | | [facility] | [address] | [address] | | | TESTS | | | | + + + + + ANTIBODY SCREEN (03/18/2017 6:48 AM PDT) + + + + + + | Component | Value | Ref Range | Performed | Pathologist | | | | | At | Signature | + + + + + + | Antibody | Negative | | [facility] | | | Screen | | | LABORATORY | | | | | | SERVICES, | | | | | | TRANSFUSION | | | | | | MEDICINE | | + + + + + + + + | Specimen | + + | Blood - Blood | | (substance) | + + + + + + + | Performing | Address | City/State/Zipcode | Phone Number | | Organization | | | | + + + + + | [facility] | [address] | [place] [address] | | | SERVICES, | [address] | | | | TRANSFUSION MEDICINE | | | | + + + + + ABO & RH TYPE (03/18/2017 6:48 AM PDT) + + + + + + | Component | Value | Ref Range | Performed | Pathologist | | | | | At | Signature | + + + + + + | ABO Group | A | | [facility] | | | | | | LABORATORY | | | | | | SERVICES, | | | | | | TRANSFUSION | | | | | | MEDICINE | | + + + + + + | Rh Type | Positive | | [facility] | | | | | | LABORATORY | | | | | | SERVICES, | | | | | | TRANSFUSION | | | | | | MEDICINE | | + + + + + + + + | Specimen | + + | Blood - Blood | | (substance) | + + + + + + + | Performing | Address | City/State/Zipcode | Phone Number | | Organization | | | | + + + + + | [facility] | [address] | [place] [address] | | | [place] | [address] | | | | TRANSFUSION MEDICINE | | | | + + + + + INTRAPROCEDURE IMAGING (03/18/2017 6:47 AM PDT) + + | Specimen | + + | | + + + + + | Narrative | Performed At | + + + | See admission or procedure notes for details of any intraprocedure | | | images obtained. | | + + + NON DIRECTOR OF STATE CYTOLOGY (03/18/2017) + + + + + + | Component | Value | Ref Range | Performed | Pathologist | | | | | At | Signature | + + + + + + | NON-DIRECTOR OF STATE | SOURCE OF SPECIMEN:A | | [facility] | | | CYTOLOGY | Level 7 Lymph Node FNA, | | DEPARTMENT | | | | done by clinician | | OF | | | | withadequacy | | PATHOLOGY | | | | assessmentSOURCE OF | | | | | | SPECIMEN:B 10 R Lymph | | | | | | Node FNA, done by | | | | | | clinician with | | | | | | adequacyassessmentGROSS | | | | | | DESCRIPTION:CLINICAL | | | | | | HISTORY: Clinical | | | | | | History:31 year old | | | | | | female with multiple | | | | | | enlarged mediastinal | | | | | | lymph nodes. | | | | | | Procedure:A. FNA x 3 | | | | | | yielded fluid for | | | | | | SurePath slide, 3 | | | | | | air-dried and 3 | | | | | | fixedslides and a cell | | | | | | block.B. FNA x 2 | | | | | | yielded fluid for | | | | | | [employer] slide, 2 | | | | | | air-dried and 2 | | | | | | fixedslides and a cell | | | | | | block. Final | | | | | | Cytologic Diagnosis:A. | | | | | | Level 7 lymph node, | | | | | | EBUS-guided FNA:- | | | | | | Negative for | | | | | | malignancy (see comment) | | | | | | B. 10R lymph | | | | | | node, EBUS-guided FNA:- | | | | | | Lymph node with | | | | | | granuloma- Negative | | | | | | for malignancy | | | | | | Immediate Impression:A. | | | | | | Negative for | | | | | | malignancy (DE)B. | | | | | | Unsatisfactory (DE) | | | | | | Case Reviewed | | | | | | by:Wanda Wiggins/ | | | | | | Health Care Coordinator | | | | | | (ASCP)Yusuf Goode MD/ | | | | | | Cytopathology | | | | | | Maxim Nunes MD/ | | | | | | Pathologist | | | | | | Comment:The cytologic | | | | | | preparation of the level | | | | | | 7 lymph node (Specimen | | | | | | A) reveals | | | | | | aheterogeneous | | | | | | population of | | | | | | predominantly small | | | | | | lymphocytes. No | | | | | | malignancyis identified. | | | | | | The cytologic | | | | | | preparation of the 10R | | | | | | lymph node reveals a | | | | | | heterogeneouspopulation | | | | | | of predominantly small | | | | | | lymphocytes and a single | | | | | | | | | | | | non-necrotizinggranuloma | | | | | | . No malignancy is | | | | | | identified. My | | | | | | electronic signature | | | | | | indicates that I have | | | | | | personally reviewed | | | | | | alldiagnostic slides, | | | | | | the gross and/or | | | | | | microscopic portion of | | | | | | thisreport and | | | | | | formulated the final | | | | | | diagnosis. | | | | | | Rendering Diagnostician: | | | | | | Zainab Nunes | | | | | | Arlette | | | | | | kayden Stanton 03/19/2017 | | | | | | 3:00PM | | | | + + + + + + + + | Specimen | + + | | + + + + + | Narrative | Performed At | + + + | | | + + + + + + + + | Performing | Address | City/State/Zipcode | Phone Number | | Organization | | | | + + + + + | [facility] | [address] | [place] [address] | | | PATHOLOGY | [address] | | | + + + + + SURGICAL PATHOLOGY (03/18/2017) + + + + + + | Component | Value | Ref Range | Performed | Pathologist | | | | | At | Signature | + + + + + + | SURGICAL | SOURCE OF SPECIMEN:A | | [facility] | | | PATHOLOGY | Level 7 right FSSOURCE | | DEPARTMENT | | | | OF SPECIMEN:B Level 4 | | OF | | | | right FSSOURCE OF | | PATHOLOGY | | | | SPECIMEN:C Level 4 | | | | | | rightSOURCE OF | | | | | | SPECIMEN:D Level 7 right | | | | | | Final Pathologic | | | | | | Diagnosis:A. Level 7 | | | | | | right, biopsy: - | | | | | | Lymph node with | | | | | | extensive | | | | | | non-necrotizing | | | | | | granulomatous | | | | | | inflammation - | | | | | | Negative for malignancy | | | | | | B. Level 4 | | | | | | right, biopsy: - | | | | | | Lymph node with | | | | | | extensive | | | | | | non-necrotizing | | | | | | granulomatous | | | | | | inflammation - | | | | | | Negative for malignancy | | | | | | C. Level 4 right, | | | | | | dissection: - | | | | | | Lymph node with | | | | | | extensive | | | | | | non-necrotizing | | | | | | granulomatous | | | | | | inflammation - | | | | | | Special stains (GMS, | | | | | | TERESA and gram) negative | | | | | | for organisms - | | | | | | Negative for malignancy | | | | | | D. Level 7 right, | | | | | | dissection: - | | | | | | Lymph node with | | | | | | extensive | | | | | | non-necrotizing | | | | | | granulomatous | | | | | | inflammation - | | | | | | Negative for malignancy | | | | | | Comment: Each | | | | | | specimen demonstrates | | | | | | essentially identical | | | | | | findings; thereare | | | | | | extensive | | | | | | non-necrotizing | | | | | | granulomata with no | | | | | | morphologic | | | | | | orimmunophenotypic | | | | | | evidence of a | | | | | | lymphoproliferative | | | | | | disorder or | | | | | | othermalignancy. The | | | | | | differential diagnosis | | | | | | for these findings | | | | | | includessarcoidosis and | | | | | | other aberrant immune | | | | | | responses, as well as | | | | | | infection.Special stains | | | | | | for microorganisms were | | | | | | performed in an attempt | | | | | | to identifyan | | | | | | infectious etiology; | | | | | | GMS, TERESA and tissue | | | | | | gram stains (block C1) | | | | | | arenegative for fungal, | | | | | | acid fast and bacterial | | | | | | organisms | | | | | | respectively.However, | | | | | | because of the low | | | | | | sensitivity of these | | | | | | stains (in particular | | | | | | theFITE stain) an | | | | | | infectious etiology | | | | | | cannot be entirely | | | | | | excluded. | | | | | | Correlationwith clinical | | | | | | findings as well as any | | | | | | available microbiology | | | | | | studies isrecommended | | | | | | for final | | | | | | interpretation. | | | | | | Case seen by:Ade | | | | | | Sarah Sampson | | | | | | /Hematopathology | | | | | | FellowRiadela Arvizu, | | | | | | M.D./Hematopathologist | | | | | | Clinical | | | | | | History:The patient is a | | | | | | 31 year old woman who | | | | | | was found to have | | | | | | significantlyenlarged | | | | | | mediastinal nodes | | | | | | including level 7, 4R, | | | | | | and right hilar | | | | | | lymphnodes suspicious | | | | | | for a malignancy. 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 | | | | | | Level 7 right: | | | | | | Received is a single | | | | | | pink-palencia tissue fragment | | | | | | (0.6 x 0.3x 0.2). The | | | | | | specimen was trisected | | | | | | and entirely submitted | | | | | | at time ofintraoperative | | | | | | consultation. The | | | | | | specimen is resubmitted | | | | | | entirely. B. Level | | | | | | 4 right: Received is | | | | | | a single pink-palencia tissue | | | | | | fragment (0.6 x 0.5x | | | | | | 0.3). The specimen was | | | | | | entirely submitted at | | | | | | time of | | | | | | intraoperativeconsultati | | | | | | on. The specimen is | | | | | | resubmitted entirely. | | | | | | C. Level 4 right: | | | | | | Received are multiple | | | | | | unoriented soft pink-palencia | | | | | | tissuefragments (3.5 x | | | | | | 2.5 x 0.4). The largest | | | | | | tissue fragment is | | | | | | bisected andreveals | | | | | | underlying hemorrhage | | | | | | but is otherwise grossly | | | | | | unremarkable. Aportion | | | | | | of the largest tissue | | | | | | fragment is sent for | | | | | | flow cytometry. | | | | | | Theremainder of the | | | | | | specimen is submitted | | | | | | entirely. D. Level | | | | | | 7 right: Received are | | | | | | multiple unoriented | | | | | | soft pink-palencia | | | | | | tissuefragments (3 2.5 x | | | | | | 1.4 x 0.5). A portion | | | | | | of the largest tissue | | | | | | fragment issent for flow | | | | | | cytometry. The | | | | | | remainder of the | | | | | | specimen is | | | | | | submittedentirely. | | | | | | Cassette Index:A1, | | | | | | frozen section residue | | | | | | trisectedB1, frozen | | | | | | section residueC1, level | | | | | | 4 rightD1, level 7 | | | | | | rightJC | | | | | | Microscopic Description | | | | | | (A-D): The lymph nodes | | | | | | diffuse obliteration | | | | | | ofarchitecture by | | | | | | numerous non-necrotizing | | | | | | granulomata. There are | | | | | | some areaswith lymphoid | | | | | | cell preservation, | | | | | | including rare lymphoid | | | | | | follicles andgerminal | | | | | | centers. No atypical | | | | | | lymphoid cell population | | | | | | or other | | | | | | malignantinfiltrates are | | | | | | identified. Flow | | | | | | Cytometric Analysis: | | | | | | Flow cytometry was | | | | | | performed on cell | | | | | | suspensionsprepared by | | | | | | mincing the fresh lymph | | | | | | node tissues from | | | | | | specimen C level 4right | | | | | | lymph node and specimen | | | | | | D level 7 right lymph | | | | | | node. Specimen C: | | | | | | Mature lymphocytes | | | | | | comprise 99% of total | | | | | | cells and include 52%T | | | | | | cells, 44% B cells and | | | | | | 3% NK cells. T cells | | | | | | show a CD4:CD8 ratio of | | | | | | 5.2:1and are without | | | | | | aberrant antigen | | | | | | expression. B cells are | | | | | | polytypic bysurface | | | | | | light chain expression; | | | | | | the kappa:lambda ratio | | | | | | is ~1.6:1. . Thereis no | | | | | | significant CD34+ blast | | | | | | population. Please see | | | | | | below for | | | | | | antibodiestested: | | | | | | Antibodies Tested | | | | | | CD2 CD3 CD4 CD5 | | | | | | CD7 CD8 CD10 | | | | | | [id number] CD22 CD23 CD25 | | | | | | CD34 CD38 CD45 | | | | | | [id number] sKappa | | | | | | sLambda | | | | | | Specimen D: Mature | | | | | | lymphocytes comprise | | | | | | 100% of total cells and | | | | | | gtznvre07% T cells and | | | | | | ~15% B cells. T cells | | | | | | show a CD4:CD8 ratio of | | | | | | 5.3:1. Thereare ~15% | | | | | | polyclonal B cells with | | | | | | a kappa:lambda ratio of | | | | | | 1.4:1. Please seebelow | | | | | | for antibodies tested: | | | | | | Antibodies Tested | | | | | | CD4 CD5 CD8 | | | | | | CD10 CD19 CD45 sKappa | | | | | | sLambda | | | | | | Special Stains: Block | | | | | | C1 (level 4 right) was | | | | | | stained with GMS, TERESA, | | | | | | andgram stains; all | | | | | | three stains are | | | | | | negative for fungal, | | | | | | acid fast, andbacterial | | | | | | organisms respectively. | | | | | | | | | | | | Immunohistochemical | | | | | | Stains: Additional | | | | | | immunologic analysis was | | | | | | performedon paraffin | | | | | | sections of block C1 | | | | | | (level 4 right) using | | | | | | the CD3, CD20, ZC63tua | | | | | | CD138 antibodies. CD3 | | | | | | and CD20 highlight | | | | | | scattered relatively | | | | | | preservedareas of the | | | | | | paracortex and lymphoid | | | | | | follicles respectively. | | | | | | There is aslightly | | | | | | increased portion of | | | | | | CD20+ B cells. Both T | | | | | | and B cells | | | | | | arepredominantly small | | | | | | and morphologically | | | | | | unremarkable. CD30 | | | | | | stains | | | | | | scatteredimmunoblasts | | | | | | and CD138 highlights | | | | | | relatively frequent | | | | | | small plasma cells. | | | | | | In Situ | | | | | | Hybridization: | | | | | | Molecular probes were | | | | | | used in separate in | | | | | | situhybridization | | | | | | analyses for kappa light | | | | | | chain mRNA and lambda | | | | | | light chainmRNA on block | | | | | | C1. Appropriate | | | | | | controls, including RNA | | | | | | controls, wereperformed | | | | | | and test validity | | | | | | confirmed. The plasma | | | | | | cells are | | | | | | clearlypolyclonal. | | | | | | (Immunohistochemical | | | | | | analysis (IHC) allows | | | | | | assessment | | | | | | ofimmunoarchitecture, | | | | | | which is not supplied by | | | | | | flow cytometry, whereas | | | | | | flowcytometry enables | | | | | | better assessment of | | | | | | clonality and antigen | | | | | | aberrancy thanIHC). | | | | | | (Analyte specific | | | | | | reagents are used in | | | | | | many laboratory tests | | | | | | necessary forstandard | | | | | | medical care. This | | | | | | test was developed and | | | | | | its | | | | | | performancecharacteristi | | | | | | cs determined by [facility] | | | | | | laboratories. It has | | | | | | not been clearedor | | | | | | approved by the [place] Food | | | | | | and Drug Administration | | | | | | (FDA). FDA does | | | | | | notrequire this test to | | | | | | go through premarket FDA | | | | | | review. This test is | | | | | | usedfor clinical | | | | | | purposes. It should | | | | | | not be regarded as | | | | | | investigational or | | | | | | forresearch. This | | | | | | laboratory is certified | | | | | | under the Clinical | | | | | | LaboratoryImprovement | | | | | | Amendments (CLIA) as | | | | | | qualified to perform | | | | | | high complexityclinical | | | | | | laboratory testing.) | | | | | | My electronic | | | | | | signature indicates that | | | | | | I have personally | | | | | | reviewed alldiagnostic | | | | | | slides, the gross and/or | | | | | | microscopic portion of | | | | | | thisreport and | | | | | | formulated the final | | | | | | diagnosis. | | | | | | Rendering Diagnostician: | | | | | | Bonita Arvizu | | | | | | SarahHematopathologistEle | | | | | | ctronically Signed | | | | | | 03/24/2017 3:48PM | | | | + + + + + + + + | Specimen | + + | | + + + + + | Narrative | Performed At | + + + | | | + + + + + + + + | Performing | Address | City/State/Zipcode | Phone Number | | Organization | | | | + + + + + | [facility] | [address] | [place] [address] | | | PATHOLOGY | [address] | | | + + + + + CARDIOLOGY (03/18/2017 12:00 AM PDT) + + + | Narrative | Performed At | + + + | | | + + + documented in this encounter Visit Diagnoses Not on filedocumented in this encounter Administered Medications + +--------+ + +------+------+ | Medication Order | MAR | Action | Dose | Rate | Site | | | Action | Date | | | | + +--------+ + +------+------+ | acetaminophen (TYLENOL) tablet | Given | 03/18/20 | 1,000 mg | | | | 1,000 mg 1,000 mg, oral, | | 17 7:15 | | | | | PREPROCEDURE ONCE, 1 dose, | | AM PDT | | | | | Starting 03/18/17 at 0647, | | | | | | | Until 03/18/17 at 0715 | | | | | | + +--------+ + +------+------+ +---+---+ | | | +---+---+ + +-------+ +------+---+ + | bupivacaine | Given | 03/18/20 | 5 mL | | Surgical | | (MARCAINE,SENSORCAINE-MPF) 0.25 % | | 17 9:44 | | | Site | | (2.5 mg/mL) injection | | AM PDT | | | | | INTRAPROCEDURE PRN, Starting Tue | | | | | | | 03/18/17 at 0944, Until Tue | | | | | | | 03/18/17 at 1007 | | | | | | + +-------+ +------+---+ + +---+---+ | | | +---+---+ + +-------+ +--------+---+---+ | fentaNYL (SUBLIMAZE) injection | Given | 03/18/20 | 25 mcg | | | | 50 mcg 50 mcg, intravenous, | | 17 11:30 | | | | | POSTPROCEDURE PRN, 4 doses, | | AM PDT | | | | | Starting 03/18/17 at 0856, | | | | | | | Until e 03/18/17 at 1130, severe | | | | | | | pain while in Phase I Recovery | | | | | | + +-------+ +--------+---+---+ +-------+ +--------+---+---+ | Given | 03/18/20 | 25 mcg | | | | | 17 11:21 | | | | | | AM PDT | | | | +-------+ +--------+---+---+ | Given | 03/18/20 | 25 mcg | | | | | 17 11:13 | | | | | | AM PDT | | | | +-------+ +--------+---+---+ +---+---+ | | | +---+---+ + +-------+ +--------+---+---+ | gabapentin (NEURONTIN) capsule | Given | 03/18/20 | 400 mg | | | | 400 mg 400 mg, oral, | | 17 7:15 | | | | | PREPROCEDURE ONCE, 1 dose, | | AM PDT | | | | | Starting 03/18/17 at 0647, | | | | | | | Until 03/18/17 at 0715 | | | | | | + +-------+ +--------+---+---+ +---+---+ | | | +---+---+ + +-------+ + +---+---+ | HYDROcodone-acetaminophen | Given | 03/18/20 | 1 tablet | | | | (NORCO) 5-325 mg tablet 1-2 | | 17 12:07 | | | | | tablet 1-2 tablet, oral, EVERY 4 | | PM PDT | | | | | HOURS NEEDED, Starting Tue | | | | | | | 03/18/17 at 1007, Until Tue | | | | | | | 03/18/17 at 2253, moderate pain | | | | | | + +-------+ + +---+---+ + +---+ | | | + +---+ | HYDROcodone-acetaminophen | | | (NORCO) 5-325 mg tablet 1 dose, | | | Starting 03/18/17 at 1206, | | | Until 03/18/17 at 1207 | | + +---+ | | | + +---+ | HYDROmorphone (DILAUDID) | | | injection 0.2-0.5 mg 0.2-0.5 mg, | | | intravenous, POSTPROCEDURE PRN, | | | Starting 03/18/17 at 0856, | | | Until 03/18/17 at 2253, | | | moderate pain while in Phase I | | | Recovery | | + +---+ | | | + +---+ | ipratropium-albuterol (DUO-NEB) | | | nebulizer solution 3 mL 3 mL, | | | inhalation, PREPROCEDURE ONCE, 1 | | | dose, Starting 03/18/17 at | | | 0647, Until 03/18/17 at 2253 | | + +---+ | | | + +---+ + +---------+ + + +---+ | lactated Ringers IV 10 mL/hr, | New Bag | 03/18/20 | 10 mL/hr | 10 mL/hr | | | intravenous, PROCEDURE | | 17 7:10 | | | | | CONTINUOUS, Starting 03/18/17 | | AM PDT | | | | | at 0700, Until 03/18/17 at | | | | | | | 2253 | | | | | | + +---------+ + + +---+ +---+---+ | | | +---+---+ + +-------+ +---+---+ + | lidocaine (XYLOCAINE) 10 mg/mL | Given | 03/18/20 | | | Left Arm | | (1 %) injection subcutaneous, | | 17 7:00 | | | | | PREPROCEDURE PRN, Starting Tue | | AM PDT | | | | | 03/18/17 at 0647, Until Tue | | | | | | | 03/18/17 at 2253, IV start | | | | | | + +-------+ +---+---+ + + +---+ | | | + +---+ | naloxone (NARCAN) injection | | | intravenous, POSTPROCEDURE PRN, | | | Starting e 03/18/17 at 0854, | | | Until Fri03/18/17 at 2253, | | | hypopnea | | + +---+ | | | + +---+ + +-------+ +------+---+---+ | ondansetron (ZOFRAN) injection | Given | 03/18/20 | 4 mg | | | | 4 mg 4 mg, intravenous, | | 17 12:47 | | | | | POSTPROCEDURE PRN, 1 dose, | | PM PDT | | | | | Starting 03/18/17 at 0856, | | | | | | | Until Fri03/18/17 at 1247, | | | | | | | nausea/vomiting, 1st line | | | | | | + +-------+ +------+---+---+ + +---+ | | | + +---+ | prochlorperazine (COMPAZINE) | | | injection 5 mg 5 mg, | | | intravenous, EVERY 6 HOURS | | | NEEDED, Starting Fri03/18/17 at | | | 0857, Until Fri03/18/17 at 2253, | | | nausea/vomiting, second line | | + +---+ | | | + +---+ + + + +---------+---+ + | scopolamine (TRANSDERM-SCOPE) | Applied | 03/18/20 | 1 patch | | Left | | 1.5 mg (1 mg over 3 days) 1 patch | Patch | 17 7:15 | | | Post | | 1 patch, transdermal, EVERY 72 | | AM PDT | | | Auricula | | HOURS, 1 dose, First dose on Fri | | | | | r | | 03/18/17 at 0700 | | | | | | + + + +---------+---+ + +---+---+ | | | +---+---+ documented in this encounter
--- OUTSIDE RECORDS SUMMARY | ~2019-08-14 | XMS | Encounter Summary ---
Demographics + + + | Address | [address] | | | [place] [address] | + + + | Home Phone | | + + + | Preferred Language | Unknown | + + + | Marital Status | | + + + | Shinto Affiliation | NON | + + + | Race | White | + + + | Ethnic Group | Not or | + + + Author + + + | Author | [facility] | + + + | Organization | [facility] | + + + | Address | Unknown | + + + | Phone | Unavailable | + + + Support + + +---------+ + | Name | Relationship | Address | Phone | + + +---------+ + | Arabella Isidro | ECON | Unknown | | + + +---------+ + Care Team Providers + +------+ + | Care Senior Examiner Name | Role | Phone | + +------+ + | Balbir Mercer NP | PCP | | + +------+ + Encounter Details +--------+------+ + + + | Date | Type | Department | Care Team | Description | +--------+------+ + + + | 03/10/ | Lab | Laboratory, | | Mediastinal | | 2016 | | Specimen Collection | | lymphadenopathy | | | | at [address] | | | | | | [address] | | | | | | [place], | | | | | | [place] [address] | | | | | | [phone] | | | +--------+------+ + + + Social History + +-------+ +--------+------+ | Tobacco Use | Types | Packs/Day | Years | Date | | | | | Used | | + +-------+ +--------+------+ | Former Smoker | | | | | + +-------+ +--------+------+ + + | Comments: quit about 6 [...] | + +--------+ + + + | CBC AND AUTO DIFF | Routin | 03/10/2017 | Mediastinal | Results for this | | | e | 4:36 PM | lymphadenopathy | procedure are in the | | | | PDT | | results section. | + +--------+ + + + | INR | Routin | 03/10/2017 | Mediastinal | Results for this | | | e | 4:36 PM | lymphadenopathy | procedure are in the | | | | PDT | | results section. | + +--------+ + + + | CBC, WITH | Routin | 03/10/2017 | Mediastinal | Results for this | | DIFFERENTIAL | e | 4:36 PM | lymphadenopathy | procedure are in the | | | | PDT | | results section. | + +--------+ + + + | BASIC METABOLIC SET | Routin | 03/10/2017 | Mediastinal | Results for this | | (NA, K, CL, TCO2, | e | 4:36 PM | lymphadenopathy | procedure are in the | | BUN, CR, GLU, CA) | | PDT | | results section. | + +--------+ + + + documented in this encounter Results CBC AND AUTO DIFF (03/10/2017 4:36 PM PDT) + + + + + + | Component | Value | Ref Range | Performed | Pathologist | | | | | At | Signature | + + + + + + | WHITE CELL | 6.41 | 3.50 - 10.80 | [facility] | | | COUNT | | K/cu mm | LABORATORY | | | | | | SERVICES, | | | | | | CORE | | + + + + + + | RED CELL | 4.48 | 4.00 - 5.20 | [facility] | | | COUNT | | M/cu mm | LABORATORY | | | | | | SERVICES, | | | | | | CORE | | + + + + + + | HEMOGLOBIN | 13.4 | 12.0 - 16.0 | [facility] | | | | | g/dL | LABORATORY | | | | | | SERVICES, | | | | | | CORE | | + + + + + + | HEMATOCRIT | 41.1 | 36.0 - 46.0 % | [facility] | | | | | | LABORATORY | | | | | | SERVICES, | | | | | | CORE | | + + + + + + | MCV | 91.7 | 80.0 - 96.0 fL | [facility] | | | | | | LABORATORY | | | | | | SERVICES, | | | | | | CORE | | + + + + + + | MCHC | 32.6 | 33.0 - 35.5 | [facility] | | | | | g/dL | LABORATORY | | | | | | SERVICES, | | | | | | CORE | | + + + + + + | RDW SD | 43.8 | 35.1 - 46.3 fL | [facility] | | | | | | LABORATORY | | | | | | SERVICES, | | | | | | CORE | | + + + + + + | PLATELET | 345 | 150 - 400 K/cu | [facility] | | | COUNT | | mm | LABORATORY | | | | | | SERVICES, | | | | | | CORE | | + + + + + + | MPV | 10.2 | 9.7 - 12.3 fL | [facility] | | | | | | LABORATORY | | | | | | SERVICES, | | | | | | CORE | | + + + + + + | NRBC% | 0.0 | 0.0 - 0.3 % | [facility] | | | | | | LABORATORY | | | | | | SERVICES, | | | | | | CORE | | + + + + + + | NRBC# | 0.00 | 0.00 - 0.02 | [facility] | | | | | K/cu mm | LABORATORY | | | | | | SERVICES, | | | | | | CORE | | + + + + + + | NEUTROPHIL | 56.0 | 50.0 - 70.0 % | [facility] | | | % | | | LABORATORY | | | | | | SERVICES, | | | | | | CORE | | + + + + + + | LYMPHOCYTE | 25.7 | 18.0 - 42.0 % | [facility] | | | % | | | LABORATORY | | | | | | SERVICES, | | | | | | CORE | | + + + + + + | MONOCYTE % | 14.2 (H) | 3.5 - 9.0 % | [facility] | | | | | | LABORATORY | | | | | | SERVICES, | | | | | | CORE | | + + + + + + | EOS % | 3.0 | 1.0 - 3.0 % | [facility] | | | | | | LABORATORY | | | | | | SERVICES, | | | | | | CORE | | + + + + + + | BASO % | 0.6 | 0.0 - 2.0 % | [facility] | | | | | | LABORATORY | | | | | | SERVICES, | | | | | | CORE | | + + + + + + | IG% | 0.5Comment: Immature | 0.0 - 0.6 % | [facility] | | | | Granulocytes (IG) | | LABORATORY | | | | include metamyelocytes, | | SERVICES, | | | | myelocytes and | | CORE | | | | promyelocytes. Bands | | | | | | are not included in the | | | | | | IG count. Bands are | | | | | | included in the | | | | | | neutrophil count. | | | | + + + + + + | NEUTROPHIL | 3.59 | 1.80 - 7.70 | [facility] | | | # | | K/cu mm | LABORATORY | | | | | | SERVICES, | | | | | | CORE | | + + + + + + | LYMPHOCYTE | 1.65 | 1.00 - 4.80 | [facility] | | | # | | K/cu mm | LABORATORY | | | | | | SERVICES, | | | | | | CORE | | + + + + + + | MONOCYTE # | 0.91 (H) | 0.10 - 0.90 | [facility] | | | | | K/cu mm | LABORATORY | | | | | | SERVICES, | | | | | | CORE | | + + + + + + | EOS # | 0.19 | 0.00 - 0.50 | [facility] | | | | | K/cu mm | LABORATORY | | | | | | SERVICES, | | | | | | CORE | | + + + + + + | BASO # | 0.04 | 0.00 - 0.10 | [facility] | | | | | K/cu mm | LABORATORY | | | | | | SERVICES, | | | | | | CORE | | + + + + + + | IG# | 0.03 | 0.00 - 0.03 | [facility] | | | | | K/cu mm | LABORATORY | | | | | | SERVICES, | | | | | | CORE | | + + + + + + + + | Specimen | + + | Blood - Blood | | (substance) | + + + + + | Narrative | Performed At | + + + | Immature Granulocytes (IG) include metamyelocytes, myelocytes | [facility] | | and promyelocytes. Bands are not included in the IG count. Bands are | LABORATORY | | included in the neutrophil count. | [facility] | + + + + + + + + | Performing | Address | City/State/Zipcode | Phone Number | | Organization | | | | + + + + + | [facility] | [address] | [place] [address] | | | [facility] | [address] | | | + + + + + BASIC METABOLIC SET (NA, K, CL, TCO2, BUN, CR, GLU, CA) (03/10/2017 4:36 PM PDT) + +---------+ + + + | Component | Value | Ref Range | Performed | Pathologist | | | | | At | Signature | + +---------+ + + + | GLUCOSE, | 81 | 60 - 99 mg/dL | [facility] | | | PLASMA | | | LABORATORY | | | (LAB) | | | SERVICES, | | | | | | CORE | | + +---------+ + + + | BUN, PLASMA | 14 | 6 - 20 mg/dL | [facility] | | | (LAB) | | | LABORATORY | | | | | | SERVICES, | | | | | | CORE | | + +---------+ + + + | CREATININE | 0.90 | 0.60 - 1.10 | [facility] | | | PLASMA | | mg/dL | LABORATORY | | | (LAB) | | | SERVICES, | | | | | | CORE | | + +---------+ + + + | EGFR | >60 | >60 mL/min | [facility] | | | - | | | LABORATORY | | | SLOVENIAN | | | SERVICES, | | | | | | CORE | | + +---------+ + + + | EGFR NON | >60 | >60 mL/min | [facility] | | | -CHAVEZ | | | LABORATORY | | | RICAN | | | SERVICES, | | | | | | CORE | | + +---------+ + + + | SODIUM, | 141 | 136 - 145 | [facility] | | | PLASMA | | mmol/L | LABORATORY | | | (LAB) | | | SERVICES, | | | | | | CORE | | + +---------+ + + + | POTASSIUM, | 4.1 | 3.4 - 5.0 | [facility] | | | PLASMA | | mmol/L | LABORATORY | | | (LAB) | | | SERVICES, | | | | | | CORE | | + +---------+ + + + | CHLORIDE, | 107 | 97 - 108 mmol/L | [facility] | | | PLASMA | | | LABORATORY | | | (LAB) | | | SERVICES, | | | | | | CORE | | + +---------+ + + + | TOTAL CO2, | 26 | 21 - 32 mmol/L | [facility] | | | PLASMA | | | LABORATORY | | | (LAB) | | | SERVICES, | | | | | | CORE | | + +---------+ + + + | CALCIUM, | 8.8 | 8.6 - 10.2 | [facility] | | | PLASMA | | mg/dL | LABORATORY | | | (LAB) | | | SERVICES, | | | | | | CORE | | + +---------+ + + + | ANION GAP | 8 | mmol/L | [facility] | | | | | | LABORATORY | | | | | | SERVICES, | | | | | | CORE | | + +---------+ + + + | POTASSIUM | No Hemo | | [facility] | | | CMNT | | | LABORATORY | | | | | | SERVICES, | | | | | | CORE | | + +---------+ + + + + + | Specimen | + + | Blood - Blood | | (substance) | + + + + + | Narrative | Performed At | + + + | GFR is estimated using the MDRD equation recommended by the | [facility] | | National Kidney Disease Education Program. Estimated GFR | LABORATORY | | Interpretive Information: <60 mL/min/1.73 sq m | SERVICES, CORE | | Chronic Kidney Disease <15 mL/min/1.73 sq m | | | Kidney Failure Estimated GFR greater that 60 mL/min/1.73 sq m is of | | | limited clinical value. The MDRD equation is not valid in the | | | following situations: - Patients under 18 years of age - Severe | | | malnutrition or obesity - Vegetarian diet - Rapidly changing kidney | | | function | | + + + + + + + + | Performing | Address | City/State/Zipcode | Phone Number | | Organization | | | | + + + + + | [facility] | [address] | [place] [address] | | | SERVICES, CORE | [address] | | | + + + + + INR (03/10/2017 4:36 PM PDT) + + + + + + | Component | Value | Ref Range | Performed | Pathologist | | | | | At | Signature | + + + + + + | INR | 0.88 (L) | 0.90 - 1.20 INR | [facility] | | | | | | LABORATORY | | | | | | SERVICES, | | | | | | CORE | | + + + + + + + + | Specimen | + + | Blood - Blood | | (substance) | + + + + + | Narrative | Performed At | + + + | INR Therapeutic ranges for full anticoagulation: INR for | [facility] | | Venous Thromboembolism (2.0 - 3.0) INR INR for | LABORATORY | | most patients with mech. valves (2.5 - 3.5) INR | SERVICES, CORE | + + + + + + + + | Performing | Address | City/State/Zipcode | Phone Number | | Organization | | | | + + + + + | [facility] | [address] | [place] [address] | | | [facility] | [address] | | | + + + + + documented in this encounter Visit Diagnoses + + | Diagnosis | + + | Mediastinal lymphadenopathy Enlargement of lymph nodes | + + documented in this encounter"
--- OUTSIDE RECORDS SUMMARY | ~2019-08-14 | XMS | Encounter Summary ---
Demographics + + + | Address | [address] | | | [place] [address] | + + + | Home Phone | | + + + | Preferred Language | Unknown | + + + | Marital Status | | + + + | Episcopalian Affiliation | NON | + + + | Race | White | + + + | Ethnic Group | Not or | + + + Author + + + | Author | [facility] | + + + | Organization | [facility] | + + + | Address | Unknown | + + + | Phone | Unavailable | + + + Support + + +---------+ + | Name | Relationship | Address | Phone | + + +---------+ + | Arabella Isidro | ECON | Unknown | | + + +---------+ + Care Team Providers + +------+ + | Care System Administration Advisor Name | Role | Phone | + +------+ + | Balbir Mercer NP | PCP | | + +------+ + Reason for Visit + + + | Reason | Comments | + + + | Referral to social | | | worker | | + + + Encounter Details +--------+ + + + + | Date | Type | Department | Care Team | Description | +--------+ + + + + | 03/14/ | Telephone | SOCIAL WORK | [facility] | Referral to social | | 2017 | | [facility] [address] | [address] | worker | | | | [address] | [place], | | | | | Mailcode: [id number] | [place] [address] | | | | | [place], [place] | | | | | | [address] | | | | | | [phone] | | | +--------+ + + + [...]
--- OUTSIDE RECORDS SUMMARY | ~2019-08-14 | XMS | Encounter Summary ---
Demographics + + + | Address | [address] | | | [place] [address] | + + + | Home Phone | | + + + | Preferred Language | Unknown | + + + | Marital Status | | + + + | Mandaen Affiliation | NON | + + + | Race | White | + + + | Ethnic Group | Not or | + + + Author + + + | Author | [facility] | + + + | Organization | [facility] | + + + | Address | Unknown | + + + | Phone | Unavailable | + + + Support + + +---------+ + | Name | Relationship | Address | Phone | + + +---------+ + | Arabella Isidro | ECON | Unknown | | + + +---------+ + Care Team Providers + +------+ + | Care Flange Turner Name | Role | Phone | + +------+ + | Balbir Mercer NP | PCP | | + +------+ + Encounter Details +--------+ + + + + | Date | Type | Department | Care Team | Description | +--------+ + + + + | 01/26/ | Document-Sc | Health Information | Unknown . | | | 2017 | anned | Services [address] | | | | | [address] | | | | | | Mailcode: [id number] | | | | | | [facility] | | | | | | [place], [place] | | | | | | [address] | | | | | | [phone] | | | +--------+ + + + + Social History + +-------+ +--------+------+ | Tobacco Use | Types | Packs/Day | Years | Date | | | | | Used | | + +-------+ +--------+------+ | Never Assessed | | | | | + +-------+ +--------+------+ + + + | Sex Assigned at [...] | + +--------+ + + + | RADIOLOGY | | 01/26/2017 | | Results for this | | | | 12:00 AM | | procedure are in the | | | | PDT | | results section. | + +--------+ + + + | RADIOLOGY | | 01/26/2017 | | Results for this | | | | 12:00 AM | | procedure are in the | | | | PDT | | results section. | + +--------+ + + + documented in this encounter Results RADIOLOGY (01/26/2017 12:00 AM PDT) + + + | Narrative | Performed At | + + + | | | + + + RADIOLOGY (01/26/2017 12:00 AM PDT) + + + | Narrative | Performed At | + + + | | | + + + documented in this encounter Visit Diagnoses Not on filedocumented in this encounter"
--- OUTSIDE RECORDS SUMMARY | ~2019-08-14 | XMS | Encounter Summary ---
Demographics + + + | Address | [address] | | | [place] [address] | + + + | Home Phone | | + + + | Preferred Language | Unknown | + + + | Marital Status | | + + + | Quaker Affiliation | NON | + + + | Race | White | + + + | Ethnic Group | Not or | + + + Author + + + | Author | [facility] | + + + | Organization | [facility] | + + + | Address | Unknown | + + + | Phone | Unavailable | + + + Support + + +---------+ + | Name | Relationship | Address | Phone | + + +---------+ + | Arabella Isidro | ECON | Unknown | | + + +---------+ + Care Team Providers + +------+ + | Care Truck Driver Salesperson Name | Role | Phone | + +------+ + | Balbir Mercer NP | PCP | | + +------+ + Encounter Details +--------+ + + + + | Date | Type | Department | Care Team | Description | +--------+ + + + + | 03/24/ | Telephone | Cardiothoracic | Quinn Alba NP | | | 2017 | | Surgery at [facility] [address] | [address] | | | | | [address] | [place], [place] | | | | | Rd Mailcode: [id number] | [address] | | | | | Physician's | [phone] | | | | | [place] | | | | | | [place] [address] | | | | | | [phone] | | | +--------+ + + + [...]
--- OUTSIDE RECORDS SUMMARY | ~2019-08-14 | XMS | Encounter Summary ---
Demographics + + + | Address | [address] | | | [place] [address] | + + + | Home Phone | | + + + | Preferred Language | Unknown | + + + | Marital Status | | + + + | Mandaeism Affiliation | 1013 | + + + | Race | Unknown | + + + | Ethnic Group | Unknown | + + + Author + + + | Author | [facility] (Historical as of | | | 06-05-19) | + + + | Organization | [facility] (Historical as of | | | 06-05-19) | + + + | Address | Unknown | + + + | Phone | Unavailable | + + + Support + + +---------+ + | Name | Relationship | Address | Phone | + + +---------+ + | Fabio Amaro | ECON | Unknown | | + + +---------+ + Care Team Providers + +------+ + | Care Carroting Machine Operator Name | Role | Phone | + +------+ + | Balbir Mercer | PCP | | + +------+ + Encounter Details +--------+ + + + + | Date | Type | Department | Care Team | Description | +--------+ + + + + | 04/29/ | Procedure | [facility] | | | | 2019 | Pass | [facility] | | | | | | [address] | | | | | | [address] | | | | | | [place] [address] | | | | | | [phone] | | | +--------+ + + + + Social History + +-------+ +--------+------+ | Tobacco Use | Types | Packs/Day | Years | Date | | | | | Used | | + +-------+ +--------+------+ | Former Smoker | | | | | + +-------+ +--------+------+ + +---+---+---+ | Smokeless Tobacco: | | | | | Never Used | | | | + +---+---+---+ + + +---------+ + | Alcohol Use | Drinks/We | oz/Week | Comments | | | ek | | | + + +---------+ + | Yes | | | ocassional | + + +---------+ + + + + | Sex Assigned at | Date Recorded | | | | + + + | Not on file | | + + + as of this encounter Plan of Treatment Not on fileas of this encounter Visit Diagnoses Not on filein this encounter"
--- OUTSIDE RECORDS SUMMARY | ~2019-08-14 | XMS | Encounter Summary ---
Demographics + + + | Address | [address] | | | [place] [address] | + + + | Home Phone [...] Team Providers + +------+ + | Care Souvenir And Novelty Maker Name | Role | Phone | + [...] +--------+--------+ + + + + Encounter Details +--------+ + + + + | Date | Type | Department | Care Team | Description | +--------+ + + + + | 03/18/ | Anesthesia | 6A Intra Op [facility] | Ag Han, | | | 2016 | Event | [facility] | [address] | | | | | Admitting Desk | [address] | | | | | Located on the | [place], [place] | | | | | floor [address] | [address] | | | | | [facility] | [phone] | | | | | [place], [place] | | | | | | [address] | Luca Sutton MD | | | | | | [address] | | | | | | [facility] | | | | | | [place], [place] | | | | | | [address] | | | | | | [phone] | | | | | | | | +--------+ + + + + Anesthesia Record + + + + + | Procedure Name | Responsible | Anesthesia Start | Anesthesia Stop Time | | | Anesthesiologist | Time | | + + + + + | ENDOBRONCHIAL | Ag Han MD | 03/18/17 0725 | 03/18/17 1012 | | ULTRASOUND AND | | | | | BIOPSY; | | | | | MEDIASTINOSCOPY; | | | | | SPECIMEN RESULTS | | | | | READ | | | | | INTRAOPERATIVELY BY | | | | | PATHOLOGIST ; | | | | | MICROBIOLOGY x2; | | | | | SPECIMEN x4 (N/A | | | | | Chest) | | | | + + + + + +----+---+ + + | Da | T | Event | Comment | | te | i | | | | | m | | | | | e | | | +----+---+ + + | 05 | 0 | Eq Check | Anesthesia machine checked Equipment verified | | /3 | 6 | | | | 0/ | 3 | | | | 20 | 4 | | | | 17 | | | | +----+---+ + + | | 0 | Pt. Check | Prior to anesthesia start, pt. Identified, examined, chart | | | 7 | | reviewed, PARQ held, anesthetic plan made or approved by | | | 1 | | attending anesthesiologist. NPO status confirmed as appropriate | | | 8 | | for procedure Preoperative evaluation: unchanged | +----+---+ + + | | 0 | An Start | | | | 7 | | | | | 2 | | | | | 5 | | | +----+---+ + + | | 0 | An Start | | | | 7 | Data | | | | 3 | | | | | 2 | | | +----+---+ + + | | 0 | Vitals | Monitors applied Vital signs checked Patient ready for anesthesia | | | 7 | Checked | | | | 3 | | | | | 6 | | | +----+---+ + + | | 0 | ETT | | | | 7 | | | | | 4 | | | | | 5 | | | +----+---+ + + | | 0 | Art Line | | | | 8 | | | | | 0 | | | | | 7 | | | +----+---+ + + | | 0 | Ready | | | | 8 | | | | | 1 | | | | | 0 | | | +----+---+ + + | | 0 | Timeout | | | | 8 | | | | | 1 | | | | | 4 | | | +----+---+ + + | | 0 | Abx held | Contraindicated, or not indicated for this procedure, or already | | | 8 | Medical or | receiving antibiotics | | | 1 | Surgical | | | | 4 | Reason | | +----+---+ + + | | 0 | Incision | | | | 8 | | | | | 1 | | | | | 5 | | | +----+---+ + + | | 0 | Quick Note | Concurrent documentation with Tony Hess MD for training purposes. | | | 8 | | | | | 3 | | | | | 7 | | | +----+---+ + + | | 0 | Quick Note | Started mediastinoscopy | | | 8 | | | | | 5 | | | | | 6 | | | +----+---+ + + | | 0 | Surgery end | | | | 9 | | | | | 5 | | | | | 7 | | | +----+---+ + + | | 1 | An Extubate | Neuromuscular function Intact. Pharynx suctioned. Patient obeys | | | 0 | | commands. Adequate pulmonary mechanics. | | | 0 | | | | | 3 | | | +----+---+ + + | | 1 | an stop | | | | 0 | data | | | | 0 | | | | | 6 | | | +----+---+ + + | | 1 | PACU Rpt | | | | 0 | Given | | | | 1 | | | | | 2 | | | +----+---+ + + | | 1 | Anesthesia | | | | 0 | End | | | | 1 | | | | | 2 | | | +----+---+ + + | | 1 | PACU Rpt | | | | 0 | Given | | | | 1 | | | | | 2 | | | +----+---+ + + +------+ | Meds | +------+ + + + | Name | Total | + + + | midazolam | 2 mg | + + + | fentaNYL | 250 mcg | + + + | lidocaine 2% | 80 mg | + + + | propofol | 260 mg | + + + | rocuronium | 40 mg | + + + | succinylcholine | 120 mg | + + + | PHENYLephrine | 100 mcg | + + + | neostigmine | 3 mg | + + + | glycopyrrolate | 0.6 mg | + + + | ondansetron | 4 mg | + + + | esmolol | 40 mg | + + + | PHENYLEPHrine | 100 mcg | + + + | dexamethasone | 4 mg | + + + | ceFAZolin | 3,000 mg | + + + | LR | 900 mL | + + + + + | Name | + + | O2 FR Avance (Total Liters) | + + | Air FR Avance (l/min) | + + | Insp Bennie | + + | Et Bennie | + + | Insp Iso | + + | Et Iso | + + | Insp N2O % | + + + + | No blood administrations on file. | + + +--------+ + + + | Type | Details | Placement | Removal | +--------+ + + + | Incisi | 03/18/17; Dr. Levy; chest | 03/18/17 0000 by | | | on | | Danna Longo RN | | +--------+ + + + | Periph | 03/18/17; 0705; Dr. Dona Han; | 03/18/17 0705 by | 03/18/17 1300 by | | [email or web address] | Left; Dorsal; Hand; 20 g; | Jean Carlos Patricia, | Vanessa Flowers, | | IV | Lidocaine; No; Positive; | RN | RN | | | 03/18/17; 1300 | | | +--------+ + + + | Periph | 03/18/17; 0752; Dona Han; | 03/18/17 0752 by | 03/18/17 1400 by | | eral | Right; Wrist; 18 g; 03/18/17; | Luca Sutton MD | Vanessa Flowers, | | IV | 1400 | | RN | +--------+ + + + | Arteri | 03/18/17; 0756; Left; Radial; | 03/18/17 0756 by | 03/18/17 1100 by | | al | 20g; 03/18/17; 1100 | Luca Sutton MD | Vanessa Flowres, | | Line | | | RN | +--------+ + + + documented in this encounter Social History + +-------+ +--------+ + | [...] | + +--------+ + + + | ANE ETT | Routin | 03/18/2017 | | Results for this | | | e | 9:23 AM | | procedure are in the | | | | PDT | | results section. | + +--------+ + + + | ANE ART LINE | Routin | 03/18/2017 | | Results for this | | | e | 9:23 AM | | procedure are in the | | | | PDT | | results section. | + +--------+ + + + documented in this encounter Results ANE ETT (03/18/2017 9:23 AM PDT) + + + | Narrative | Performed At | + + + | Luca Sutton MD 03/18/2017 8:36 AM Procedure Reason | | | for Intubation: For surgical procedure, Location Performed: [place] , | | | Patient was preoxygenated Mask Ventilation Grade 1 - Ventilated by | | | mask Intubation Blade type: Felix , Blade size: 3, Atraumatic | | | laryngoscopy: Atraumatic Laryngoscopy, Intubation adjuncts: Ramp , | | | Laryngoscopic view: Grade I, Fiberoptics used: N/A , Number of | | | Attempts: 1, Positive for EtCO2: Yes, Breath sounds: Bilateral and | | | equal ETT Ett Adult: Single-lumen cuffed ETT Size: 8 ETT | | | secured with: adhesive tape Depth at : 21 Cm Airway leak: No | | | Narrative Attending physically present Performed by Resident | | | | | + + + ANE ART LINE (03/18/2017 9:23 AM PDT) + + + | Narrative | Performed At | + + + | Luca Sutton MD 03/18/2017 8:35 AM Procedure ART LINE | | | Procedure Information 15 minutes to perform. Type Catheter: Arrow | | | kit Indications: Beat to beat blood pressure monitoring Location | | | Performed: [place] Informed Consent: Included in anesthesia consent | | | Protective Barrier: Cap, Mask and Sterile Gloves Skin Prep: | | | Chloraprep Draped: Partially draped Anesthesia Method: General | | | anesthesia Insertion side: Left Insertion Site: Radial Access | | | device: 20g Line secured by:Tape, Dressing Applied and StatLock | | | Assessment Number of attempts: 4th or greater Complications: | | | None Assessment: Catheter connected to pressure line and flushed, | | | catheter manually flushed, Tolerated procedure well and Perfusion | | | checked distal to catheter Attending physically present Attending | | | Name: AG HAN 2 attempts by resident Tony Hess 2 | | | attempts by resident Humza Sutton | | + + + documented in this encounter Visit Diagnoses Not on filedocumented in this encounter Administered Medications + +--------+ + +------+------+ | Medication Order | MAR | Action | Dose | Rate | Site | | | Action | Date | | | | + +--------+ + +------+------+ | ceFAZolin (ANCEF) injection | Given | 03/18/20 | 3,000 mg | | | | intravenous, INTRAPROCEDURE PRN, | | 17 8:53 | | | | | Starting Fri03/18/17 at 0853, | | AM PDT | | | | | Until Fri03/18/17 at 1006 | | | | | | + +--------+ + +------+------+ +---+---+ | | | +---+---+ + +-------+ +------+---+---+ | dexamethasone (DECADRON) | Given | 03/18/20 | 4 mg | | | | injection INTRAPROCEDURE PRN, | | 17 8:22 | | | | | Starting 03/18/17 at 0822, | | AM PDT | | | | | Until e 03/18/17 at 1006 | | | | | | + +-------+ +------+---+---+ +---+---+ | | | +---+---+ + +-------+ +-------+---+---+ | esmolol (BREVIBLOC) injection | Given | 03/18/20 | 20 mg | | | | intravenous, INTRAPROCEDURE PRN, | | 17 8:42 | | | | | Starting 03/18/17 at 0831, | | AM PDT | | | | | Until Fri03/18/17 at 1006 | | | | | | + +-------+ +-------+---+---+ +-------+ +-------+---+---+ | Given | 03/18/20 | 20 mg | | | | | 17 8:31 | | | | | | AM PDT | | | | +-------+ +-------+---+---+ +---+---+ | | | +---+---+ + +-------+ +--------+---+---+ | fentaNYL citrate (PF) | Given | 03/18/20 | 50 mcg | | | | (SUBLIMAZE) injection | | 17 9:06 | | | | | INTRAPROCEDURE PRN, Starting Tue | | AM PDT | | | | | 03/18/17 at 0740, Until Tue | | | | | | | 03/18/17 at 1006 | | | | | | + +-------+ +--------+---+---+ +-------+ +---------+---+---+ | Given | 03/18/20 | 100 mcg | | | | | 17 8:44 | | | | | | AM PDT | | | | +-------+ +---------+---+---+ | Given | 03/18/20 | 100 mcg | | | | | 17 7:40 | | | | | | AM PDT | | | | +-------+ +---------+---+---+ +---+---+ | | | +---+---+ + +-------+ +--------+---+---+ | glycopyrrolate (MACI) | Given | 03/18/20 | 0.1 mg | | | | injection INTRAPROCEDURE PRN, | | 17 9:49 | | | | | Starting 03/18/17 at 0943, | | AM PDT | | | | | Until 03/18/17 at 1006 | | | | | | + +-------+ +--------+---+---+ +-------+ +--------+---+---+ | Given | 03/18/20 | 0.5 mg | | | | | 17 9:43 | | | | | | AM PDT | | | | +-------+ +--------+---+---+ +---+---+ | | | +---+---+ + + + +---+---+---+ | lactated Ringers IV | given by | 03/18/20 | | | | | INTRAPROCEDURE CONTINUOUS PRN, | | 17 9:44 | | | | | Starting 03/18/17 at 0725, | anesthes | AM PDT | | | | | Until 03/18/17 at 1006 | iology | | | | | + + + +---+---+---+ +---------+ +---+---+---+ | New Bag | 03/18/20 | | | | | | 17 7:25 | | | | | | AM PDT | | | | +---------+ +---+---+---+ +---+---+ | | | +---+---+ + +-------+ +-------+---+---+ | lidocaine PF (XYLOCAINE MPF) 20 | Given | 03/18/20 | 80 mg | | | | mg/mL (2 %) injection | | 17 7:40 | | | | | INTRAPROCEDURE PRN, Starting Tue | | AM PDT | | | | | 03/18/17 at 0740, Until Tue | | | | | | | 03/18/17 at 1006 | | | | | | + +-------+ +-------+---+---+ +---+---+ | | | +---+---+ + +-------+ +------+---+---+ | midazolam (VERSED) injection | Given | 03/18/20 | 2 mg | | | | INTRAPROCEDURE PRN, Starting Tue | | 17 7:16 | | | | | 03/18/17 at 0716, Until Tue | | AM PDT | | | | | 03/18/17 at 1006 | | | | | | + +-------+ +------+---+---+ +---+---+ | | | +---+---+ + +-------+ +------+---+---+ | neostigmine (PROSTIGMIN) | Given | 03/18/20 | 3 mg | | | | injection intravenous, | | 17 9:43 | | | | | INTRAPROCEDURE PRN, Starting Tue | | AM PDT | | | | | 03/18/17 at 0943, Until Tue | | | | | | | 03/18/17 at 1006 | | | | | | + +-------+ +------+---+---+ +---+---+ | | | +---+---+ + +-------+ +------+---+---+ | ondansetron (ZOFRAN) injection | Given | 03/18/20 | 4 mg | | | | INTRAPROCEDURE PRN, Starting Tue | | 17 9:30 | | | | | 03/18/17 at 0930, Until Tue | | AM PDT | | | | | 03/18/17 at 1006 | | | | | | + +-------+ +------+---+---+ +---+---+ | | | +---+---+ + +-------+ +---------+---+---+ | PHENYLEPHrine 100 mcg/mL | Given | 03/18/20 | 100 mcg | | | | injection (OR syringe) | | 17 8:45 | | | | | intravenous, INTRAPROCEDURE PRN, | | AM PDT | | | | | Starting 03/18/17 at 0845, | | | | | | | Until 03/18/17 at 1006 | | | | | | + +-------+ +---------+---+---+ +---+---+ | | | +---+---+ + +-------+ +---------+---+---+ | PHENYLEPHrine 100 mcg/mL IV | Given | 03/18/20 | 100 mcg | | | | syringe INTRAPROCEDURE PRN, | | 17 8:37 | | | | | Starting 03/18/17 at 0837, | | AM PDT | | | | | Until 03/18/17 at 1006 | | | | | | + +-------+ +---------+---+---+ +---+---+ | | | +---+---+ + +-------+ +-------+---+---+ | propofol INTRAPROCEDURE PRN, | Given | 03/18/20 | 60 mg | | | | Starting 03/18/17 at 0739, | | 17 8:28 | | | | | Until 03/18/17 at 1006 | | AM PDT | | | | + +-------+ +-------+---+---+ +-------+ +--------+---+---+ | Given | 03/18/20 | 200 mg | | | | | 17 7:39 | | | | | | AM PDT | | | | +-------+ +--------+---+---+ +---+---+ | | | +---+---+ + +-------+ +-------+---+---+ | rocuronium (ZEMURON) injection | Given | 03/18/20 | 20 mg | | | | INTRAPROCEDURE PRN, Starting Tue | | 17 8:12 | | | | | 03/18/17 at 0812, Until Tue | | AM PDT | | | | | 03/18/17 at 1006 | | | | | | + +-------+ +-------+---+---+ +-------+ +-------+---+---+ | Given | 03/18/20 | 20 mg | | | | | 17 7:41 | | | | | | AM PDT | | | | +-------+ +-------+---+---+ +---+---+ | | | +---+---+ + +-------+ +--------+---+---+ | SUCCINYLCHOLINE CHLORIDE 20 | Given | 03/18/20 | 120 mg | | | | MG/ML INJ (PROSED/RSI) | | 17 7:39 | | | | | INTRAPROCEDURE PRN, Starting Tue | | AM PDT | | | | | 03/18/17 at 0739, Until Tue | | | | | | | 03/18/17 at 1006 | | | | | | + +-------+ +--------+---+---+ +---+---+ | | | +---+---+ documented in this encounter"
--- OUTSIDE RECORDS SUMMARY | ~2019-08-14 | XMS | Encounter Summary ---
Demographics + + + | Address | [address] | | | [place] [address] | + + + | Home Phone | | + + + | Preferred Language | Unknown | + + + | Marital Status | | + + + | Jainism Affiliation | NON | + + + | Race | White | + + + | Ethnic Group | Not or | + + + Author + + + | Author | [facility] | + + + | Organization | [facility] | + + + | Address | Unknown | + + + | Phone | Unavailable | + + + Support + + +---------+ + | Name | Relationship | Address | Phone | + + +---------+ + | Arabella Isidro | ECON | Unknown | | + + +---------+ + Care Team Providers + +------+ + | Care Automatic Transmission Mechanic Name | Role | Phone | + +------+ + | Balbir Mercer NP | PCP | | + +------+ + Reason for Referral Consultation (Routine) +--------+--------+ + + + + | Status | Reason | Specialty | Diagnoses / | Referred By | Referred To | | | | | Procedures | Contact | Contact | +--------+--------+ + + + + | Closed | | Pulmonary | Diagnoses | Nelson, | Jaya, | | | | Disease | Sarcoid | RAYSA William | Tanmay Rivers MD | | | | | Procedures | [address] | [address] | | | | | CONSULT TO | [address] | [address] | | | | | PULMONARY | Rd | Rd [place], | | | | | | [place], [place] | [place] | | | | | | [address] | [address] | | | | | | Phone: | Phone: | | | | | | [phone] | [phone] | | | | | | Fax: | Fax: | | | | | | [phone] | [phone] | +--------+--------+ + + + + Encounter Details +--------+ + + + + | Date | Type | Department | Care Team | Description | +--------+ + + + + | 03/18/ | Slide Fasteners Inspector | Cardiothoracic | NelsonNataliia, | Sarcoid (Primary Dx) | | 2017 | | [facility] [address] | [place] [address] | | | | | [address] [facility] | [address] | | | | | [address]: [address] | [place], [place] | | | | | Physician's | [address] | | | | | [place], | [phone] | | | | | [place] [address] | | | | | | [phone] | | | +--------+ + + + [...] + | Diagnosis | + + | Sarcoid - Primary Sarcoidosis | + + documented in this encounter"
--- OUTSIDE RECORDS SUMMARY | ~2019-08-14 | XMS | Encounter Summary ---
Demographics + + + | Address | [address] | | | [place] [address] | + + + | Home Phone | | + + + | Preferred Language | Unknown | + + + | Marital Status | | + + + | Orthodox Affiliation | 1013 | + + + | Race | Unknown | + + + | Ethnic Group | Unknown | + + + Author + + + | Author | [facility] (Historical as of | | | 06-05-19) | + + + | Organization | [facility] (Historical as of | | | 06-05-19) [...] Team Providers + +------+ + | Care Pigeon Fancier Name | Role | Phone | + +------+ + | Balbir Mercer | PCP | | + +------+ + Encounter Details +--------+ + + + + | Date | Type | Department | Care Team | Description | +--------+ + + + + | 04/29/ | Procedure | [facility] | | | | 2019 | Pass | [place] [place] | | | | | | [address] | | | | | | [address] | | | | | | [place] [address] | | | | | | [phone] | | | +--------+ + + + [...]
--- OUTSIDE RECORDS SUMMARY | ~2019-08-14 | XMS | Encounter Summary ---
Demographics + + + | Address | [address] | | | [place] [address] | + + + | Home Phone | | + + + | Preferred Language | Unknown | + + + | Marital Status | | + + + | Pentecostal Affiliation | NON | + + + | Race | White | + + + | Ethnic Group | Not or | + + + Author + + + | Author | [facility] | + + + | Organization | [facility] | + + + | Address | Unknown | + + + | Phone | Unavailable | + + + Support + + +---------+ + | Name | Relationship | Address | Phone | + + +---------+ + | Arabella Isidro | ECON | Unknown | | + + +---------+ + Care Team Providers + +------+ + | Care Channel Cementer Name | Role | Phone | + +------+ + | Balbir Mercer NP | PCP | | + +------+ + Reason for Visit + + + | Reason | Comments | + + + | Thoracic Oncology | | | Conference | | + + + Encounter Details +--------+ + + + + | Date | Type | Department | Care Team | Description | +--------+ + + + + | 04/14/ | Documentati | Cardiothoracic | Orion Medrano, | Thoracic Oncology | | 2017 | on | [facility] [address] | [address] | [facility] | | | | [address] | [address] | | | | | [address]: [address] | [place], [place] | | | | | Physician's | [address] | | | | | [place], | [phone] | | | | | [place] [address] | | | | | | [phone] | | | +--------+ + + + [...]
--- OUTSIDE RECORDS SUMMARY | ~2019-08-14 | XMS | Encounter Summary ---
Demographics + + + | Address | [address] | | | [place] [address] | + + + | Home Phone | | + + + | Preferred Language | Unknown | + + + | Marital Status | | + + + | Adventist Affiliation | NON | + + + | Race | White | + + + | Ethnic Group | Not or | + + + Author + + + | Author | [facility] | + + + | Organization | [facility] | + + + | Address | Unknown | + + + | Phone | Unavailable | + + + Support + + +---------+ + | Name | Relationship | Address | Phone | + + +---------+ + | Arabella Isidro | ECON | Unknown | | + + +---------+ + Care Team Providers + +------+ + | Care Sports Official Name | Role | Phone | + [...] + + + | Closed | | Ophthalmology | Diagnoses | Parth, | Seferino, | | | | | Sarcoid | ROSIE Ball | MD Viktor | | | | | Procedures | [address] | [address] | | | | | CONSULT TO | [address] | [address]ina | | | | | OPHTHALMOLOG | [place], [place] | [address] | | | | | Y | [address] | [place], [place] | | | | | | Phone: | [address] | | | | | | [phone] | Phone: | | | | | | Fax: | [phone] | | | | | | [phone] | Fax: | | | | | | | [phone] | +--------+--------+ + + + + Encounter Details +--------+ + + + + | Date | Type | Department | Care Team | Description | +--------+ + + + + | 06/18/ | Vaccines Solutions Specialist | Cardiothoracic | Quinn Alba NP | Sarcoid (Primary Dx) | | 2017 | | [facility] [address] | [address] | | | | | [address] [facility] | [place], [place] | | | | | Rd [address]: [address] | [address] | | | | | Physician's | [phone] | | | | | [place], | | | | | | [place] [address] | | | | | | [phone] | | | +--------+ + + + [...]
--- OUTSIDE RECORDS SUMMARY | ~2019-08-14 | XMS | Encounter Summary ---
Demographics + + + | Address | [address] | | | [place] [address] | + + + | Home Phone | | + + + | Preferred Language | Unknown | + + + | Marital Status | | + + + | Quaker Affiliation | 1013 | + + + | Race | Unknown | + + + | Ethnic Group | Unknown | + + + Author + + + | Author | [facility] | | | [facility] [place] | + + + | Organization | [facility] | | | [facility] [place] | + + + | Address | Unknown | + + + | Phone | Unavailable | + + + Support + + + + + | Name | Relationship | Address | Phone | + + + + + | Fabio Amaro | ECON | [address] | | | | | [place], [place] | | | | | [address] | | + + + + + | Arabella Isidro | ECON | Unknown | | + + + + + | Fabio Amaro | ECON | Unknown | | + + + + + Care Team Providers + +------+ + | Care Vehicle Damage Appraiser Name | Role | Phone | + +------+ + | Mark Bartlett | PCP | | + +------+ + Encounter Details +--------+ + + + + | Date | Type | Department | Care Team | Description | +--------+ + + + + | 05/30/ | Orders Only | [facility] | Provider, | | | 2019 | | SYSTEM GENERIC OP | [address] | | | | | [address] | [address] | | | | | [address] [place], [place] | [place] [address] | | | | | [address] | | | | | | [phone] | | | +--------+ + + + [...] | No | 1 | 0.6 | Alcoholic Drinks/day: ocassional | | | Glasses | | | [...] + + documented as of this encounter Functional Status + [...] | | | + + + + documented as of this encounter Plan of Treatment Not on filedocumented as of this encounter Visit Diagnoses Not on filedocumented in this encounter"
--- OUTSIDE RECORDS SUMMARY | ~2019-08-14 | XMS | Encounter Summary ---
Demographics + + + | Address | [address] | | | [place] [address] | + + + | Home Phone | | + + + | Preferred Language | Unknown | + + + | Marital Status | | + + + | Sabianism Affiliation | NON | + + + | Race | White | + + + | Ethnic Group | Not or | + + + Author + + + | Author | [facility] | + + + | Organization | [facility] | + + + | Address | Unknown | + + + | Phone | Unavailable | + + + Support + + +---------+ + | Name | Relationship | Address | Phone | + + +---------+ + | Arabella Isidro | ECON | Unknown | | + + +---------+ + Care Team Providers + +------+ + | Care General Utility Worker Name | Role | Phone | + +------+ + | Balbir Mercer NP | PCP | | + +------+ + Encounter Details +--------+ + + + + | Date | Type | Department | Care Team | Description | +--------+ + + + + | 03/24/ | MyChart | Cardiothoracic | Quinn Alba NP | RE: results | | 2017 | Encounter | [facility] [address] | [address] | | | | | [address] | [place], [place] | | | | | [address]: [address] | [address] | | | | | Physician's | [phone] | | | | | [place], | | | | | | [place] [address] | | | | | | [phone] | | | +--------+ + + + [...]
--- OUTSIDE RECORDS SUMMARY | ~2019-08-14 | XMS | Encounter Summary ---
Demographics + + + | Address | [address] | | | [place] [address] | + + + | Home Phone | | + + + | Preferred Language | Unknown | + + + | Marital Status | | + + + | Scientologist Affiliation | 1013 | + + + | Race | Unknown | + + + | Ethnic Group | Unknown | + + + Author + + + | Author | [employer] (Historical as of | | | 06-05-19) | + + + | Organization | [facility] [employer] (Historical as of | | | 06-05-19) [...] Team Providers + +------+ + | Care Business Analytics Intern Name | Role | Phone | + +------+ + | Balbir Mercer | PCP | | + +------+ + Encounter Details +--------+ + + + + | Date | Type | Department | Care Team | Description | +--------+ + + + + | 05/24/ | Procedure | [facility] | | | | 2019 | Pass | [facility] | | | | | | [place] [address] [facility] | | | | | | [place] [id number] | | | | | | [phone] | | | +--------+ + + + [...]
--- OUTSIDE RECORDS SUMMARY | ~2019-08-14 | XMS | Encounter Summary ---
Demographics + + + | Address | [address] | | | [place] [address] | + + + | Home Phone | | + + + | Preferred Language | Unknown | + + + | Marital Status | | + + + | Sikhism Affiliation | NON | + + + | Race | White | + + + | Ethnic Group | Not or | + + + Author + + + | Author | [facility] | + + + | Organization | [facility] | + + + | Address | Unknown | + + + | Phone | Unavailable | + + + Support + + +---------+ + | Name | Relationship | Address | Phone | + + +---------+ + | Arabella Isidro | ECON | Unknown | | + + +---------+ + Care Team Providers + +------+ + | Care Educational Therapist Name | Role | Phone | + [...] | | | | | [address] [place], | | | | | | [place] [address] | | | +--------+ + + + [...]
--- OUTSIDE RECORDS SUMMARY | ~2019-08-14 | XMS | Encounter Summary ---
Demographics + + + | Address | [address] | | | [place] [address] | + + + | Home Phone | | + + + | Preferred Language | Unknown | + + + | Marital Status | | + + + | Episcopalian Affiliation | NON | + + + | Race | White | + + + | Ethnic Group | Not or | + + + Author + + + | Author | [facility] | + + + | Organization | [facility] | + + + | Address | Unknown | + + + | Phone | Unavailable | + + + Support + + +---------+ + | Name | Relationship | Address | Phone | + + +---------+ + | Arabella Isidro | ECON | Unknown | | + + +---------+ + Care Team Providers + +------+ + | Care Stoneworker Name | Role | Phone | + +------+ + | Balbir Mercer NP | PCP | | + +------+ + Encounter Details +--------+ + + + + | Date | Type | Department | Care Team | Description | +--------+ + + + + | 01/19/ | Document-Sc | Health Information | Unknown . | | | 2017 | anned | Services [id number] | | | | | [address] | | | | | | Mailcode: [id number] | | | | | | [facility] | | | | | | [place], [place] | | | | | | [address] | | | | | | [phone] | | | +--------+ + + + [...] + + + | RADIOLOGY | | 01/19/2017 | | Results for this | | | | 12:00 AM | | procedure are in the | | | | PDT | | results section. | + +--------+ + + + | RADIOLOGY | | 01/19/2017 | | Results for this | | | | 12:00 AM | | procedure are in the | | | | PDT | | results section. | + +--------+ + + + | RADIOLOGY | | 01/19/2017 | | Results for this | | | | 12:00 AM | | procedure are in the | | | | PDT | | results section. | + +--------+ + + + | RADIOLOGY | | 01/19/2017 | | Results for this | | | | 12:00 AM | | procedure are in the | | | | PDT | | results section. | + +--------+ + + + documented in this encounter Results RADIOLOGY (01/19/2017 12:00 AM PDT) + + + | Narrative | Performed At | + + + | | | + + + RADIOLOGY (01/19/2017 12:00 AM PDT) + + + | Narrative | Performed At | + + + | | | + + + RADIOLOGY (01/19/2017 12:00 AM PDT) + + + | Narrative | Performed At | + + + | | | + + + RADIOLOGY (01/19/2017 12:00 AM PDT) + + + | Narrative | Performed At | + + + | | | + + + documented in this encounter Visit Diagnoses Not on filedocumented in this encounter"
--- OUTSIDE RECORDS SUMMARY | ~2019-08-14 | XMS | Encounter Summary ---
Demographics + + + | Address | [address] | | | [place] [address] | + + + | Home Phone | | + + + | Preferred Language | Unknown | + + + | Marital Status | | + + + | Buddhism Affiliation | NON | + + + [...] Team Providers + +------+ + | Care Metal Fitter Name | Role | Phone | + [...] + + + + | 03/18/ | Hospital | [facility] [address] | Augie Levy MD | | | 2017 | Encounter | [address] | [address] | | | | | [id number] | [address] | | | | | [place], | [place], [place] | | | | | [place] [address] | [address] | | | | | [phone] | [phone] | | | | | | | [...] + +--------+ + + + | NON LIVE IN HOUSEKEEPER NANNY CYTOLOGY | Routin | 03/18/2017 | | [...] 03/18/2017 Attending | | Surgeon:Augie Levy MD Rn Cardiovascular(s):RAYSA Reyes | | Preoperative Diagnosis: Mediastinal adenopathy.Postoperative [...] frozen section showed no evidence of malignancy.FARTUN Garcia/WILLD: | | 03/18/2017 09:50:17DT: 03/18/2017 11:17:46Job #: [id number] | | | | | |Augie Levy MD | |PS/MODL | | | | | | /[id number] | + + X-RAY PORTABLE CHEST 1 VIEW (03/18/2017 11:24 AM PDT) + + | Specimen | + + | | + + + + + | Narrative | Performed At | + + + | EXAM: [place] CHEST 1 VIEW 03/18/17 10:42:35 HISTORY: Mediastinal [...] Interface - 03/18/2017 1:05 PM PDT EXAM: [place] CHEST 1 | | VIEW 03/18/17 10:42:35 [...] | + + + + + | [facility] | [address] | [place] [address] | | | SERVICES, CORE | [address] | | | + [...] + | [facility] - | [address] | [place] [address] | | | [facility] | | | | + [...] detected | AIRPORT - | | | [facility] | + + + + + + + + | Performing | Address | City/State/Zipcode | Phone Number | | Organization | | | | + + + + + | [facility] | [address] | [place] [address] | | | [facility] | | | | + [...] No polymorphonuclear cells No squamous epithelial | [facility] - | | cells No organisms seen | [place] | + + + + + + + + | Performing | Address | City/State/Zipcode | Phone Number | | Organization | | | | + + + + + | [facility] | [address] | [place] [address] | | | [place] | | | | + + + [...] + | [facility] - | [address] | [place] [address] | | | [place] | | | [...] detected | [facility] - | | | [place] | + + + + + + + + | Performing | Address | City/State/Zipcode | Phone Number | | Organization | | | | + + + + + | [facility] | [address] | [place] [address] | | | [place] | | | [...] | | cells No organisms seen | [place] | + + + + + + + + | Performing | Address | City/State/Zipcode | Phone Number | | Organization | | | | + + + + + | [facility] | [address] | [place] [address] | | | [place] | | | [...] + + + | Many WBC present. | [facility] | | | LABORAT[facility] | | | [address] | + + + + + + + + | Performing | Address | City/State/Zipcode | Phone Number | | Organization | | | | + + + + + | [facility] | [address] | [place] [address] | | | [address] | [address] [...] | | | POC | | | [place] | | | | | | [place]SY [...] [facility] | [address] | [place], [place] | | | DIRK POINT OF CARE | [address] | [address] | | | TESTS | | | [...] | + + + + + | [facility] | [address] | [place] [address] | | | SERVICES, | [address] | | | | TRANSFUS[facility] MEDICINE [...] + + | [facility] | [address] | [place] [address] | | | [place] | [address] [...] obtained. | | + + + NON LIVE IN HOUSEKEEPER NANNY CYTOLOGY (03/18/2017) + + + + + + | Component | Value | Ref Range | Performed | Pathologist | | | | | At | Signature | + + + + + + | NON-LIVE IN HOUSEKEEPER NANNY | SOURCE OF SPECIMEN:A | | [facility] [...] Wiggins/ | | | | | | Relocation Director | | | | | | (ASCP)Yusuf [...] Nunes | | | | | | M.DTamiPathologistElectroni | | | | | | kayden Signed 03/19/2017 | | | | | | [...] | + + + + + | [facility] | [address] | [place] [address] | | | PATHOLOGY | [address] | | | + + + + + SURGICAL PATHOLOGY (03/18/2017) + + + + + + | Component | Value | Ref Range | Performed | Pathologist | | | | | At | Signature | + + + + + + | SURGICAL | SOURCE OF SPECIMEN:A | | [facility] | | | PATHOLOGY | Level 7 [...] malignancyPhil | | | | | | Raess, MD, PhD | | | | | [...] CD10 | | | | | | [id number] CD22 CD23 CD25 | | | | | | CD34 CD38 CD45 | | | | | | [id number] sKappa | | | | | | sLambda | | | | | | Specimen D: Mature | | | | | | lymphocytes comprise | | | | | | 100% of total cells and | | | | | | snxbzal74% T cells and | | | | [...] | | | | the CD3, CD20, VQ47ggp | | | | | | CD138 [...] | + + + + + | [facility] | [address] | [place] [address] | | | PATHOLOGY | [address] | | | + + + + + CARDIOLOGY (03/18/2017 12:00 AM PDT) + + + | Narrative | Performed At | + + + | | | + + + documented in this encounter Visit Diagnoses + + | Diagnosis | + + | Mediastinal adenopathy Enlargement of lymph nodes | + + documented in this encounter Administered Medications + +--------+ [...] PDT | | | | | Starting e 03/18/17 at 0647, | | | | | | | Until Fri03/18/17 at 0715 | | | | | [...] intravenous, POSTPROCEDURE PRN, | | | Starting Fri03/18/17 at 0854, | | | Until Fri03/18/17 [...] PDT | | | | | Starting Fri03/18/17 at 0856, | | | | | [...]
--- OUTSIDE RECORDS SUMMARY | ~2019-08-14 | XMS | Encounter Summary ---
Demographics + + + | Address | [address] | | | [place] [address] | + + + | Home Phone | | + + + | Preferred Language | Unknown | + + + | Marital Status | | + + + | Anabaptist Affiliation | NON | + + + | Race | White | + + + | Ethnic Group | Not or | + + + Author + + + | Author | [facility] | + + + | Organization | [facility] | + + + | Address | Unknown | + + + | Phone | Unavailable | + + + Support + + +---------+ + | Name | Relationship | Address | Phone | + + +---------+ + | Arabella Isidro | ECON | Unknown | | + + +---------+ + Care Team Providers + +------+ + | Care Coordinate Measuring Machine Operator Name | Role | Phone [...] [address] | | | | | [id number] | [address] | | | | | [place], | [place], [place] | | | | | [place] [address] | [address] | | | | | [phone] | [phone] | | | | | | | [...] + +--------+ + + + | NON IMPLEMENTATION PROJECT MANAGER CYTOLOGY | Routin | 03/18/2017 | | [...] 03/18/2017 Attending | | Surgeon:Augie Levy MD Coat Presser(s):RAYSA Reyes | | Preoperative Diagnosis: Mediastinal adenopathy.Postoperative [...] | | 03/18/2017 09:50:17DT: 03/18/2017 11:17:46Job #: [id number] | | | | | |Augie Levy MD | |PS/MODL | | | | | | /[id number] | + + X-RAY PORTABLE CHEST 1 VIEW (03/18/2017 11:24 AM PDT) + + | Specimen | + + | | + + + + + | Narrative | Performed At | + + + | EXAM: [place] CHEST 1 VIEW 03/18/17 10:42:35 HISTORY: Mediastinal [...] Interface - 03/18/2017 1:05 PM PDT EXAM: [place] CHEST 1 | | VIEW 03/18/17 10:42:35 [...] | + + + + + | [facility] | [address] | [place] [address] | | | SERVICES, CORE | [address] [...] + | [facility] | [address] | [place] [address] | | | [facility] | | | | + + + [...] detected | [facility] - | | | [facility] | + + + + + + + + | Performing | Address | City/State/Zipcode | Phone Number | | Organization | | | | + + + + + | [facility] | [address] | [place] [address] | | | [facility] | | | | + + + + + CULTURE, TISSUE (03/18/2017 9:51 AM PDT) + + | Specimen | + + | Tissue | + + + + + | Narrative | Performed At | + + + | Culture Report: No growth No anaerobic organisms isolated | [facility] - | | Gram Stain: No polymorphonuclear cells No squamous epithelial | [facility] - | | cells No organisms seen | [place] | + + + + + + + + | Performing | Address | City/State/Zipcode | Phone Number | | Organization | | | | + + + + + | [facility] - | [address] | [place] [address] | | | [place] | | | | + + + [...] + | [facility] - | [address] | [place] [address] | | | [place] | | | [...] detected | [facility] - | | | [place] | + + + + + + + + | Performing | Address | City/State/Zipcode | Phone Number | | Organization | | | | + + + + + | [facility] - | [address] | [place] [address] | | | [place] | | | [...] | | cells No organisms seen | [place] | + + + + + + + + | Performing | Address | City/State/Zipcode | Phone Number | | Organization | | | | + + + + + | [facility] | [address] | [place] [address] | | | [place] | | | [...] LABORATORY | [address] | [place] [address] | | | [address] | [address] [...] [facility] | [address] | [place], [place] | | | DIRK POINT OF CARE | [address] | [address] | | | TESTS | | | [...] | + + + + + | [facility] | [address] | [place] [address] | | | SERVICES, | [address] [...] LABORATORY | [address] | [place] [address] | | | [place] | [address] [...] obtained. | | + + + NON IMPLEMENTATION PROJECT MANAGER CYTOLOGY (03/18/2017) + + + + + + | Component | Value | Ref Range | Performed | Pathologist | | | | | At | Signature | + + + + + + | NON-IMPLEMENTATION PROJECT MANAGER | SOURCE OF SPECIMEN:A | | [facility] [...] Wiggins/ | | | | | | Crusher Supervisor | | | | | | (ASCP)Yusuf [...] | + + + + + | [facility] | [address] | [place] [address] | | | PATHOLOGY | [address] | | | + + + + + SURGICAL PATHOLOGY (03/18/2017) + + + + + + | Component | Value | Ref Range | Performed | Pathologist | | | | | At | Signature | + + + + + + | SURGICAL | SOURCE OF SPECIMEN:A | | [facility] | | | PATHOLOGY | Level 7 [...] CD10 | | | | | | [id number] CD22 CD23 CD25 | | | | | | CD34 CD38 CD45 | | | | | | [id number] sKappa | | | | | | sLambda | | | | | | Specimen D: Mature | | | | | | lymphocytes comprise | | | | | | 100% of total cells and | | | | | | forpmrg32% T cells and | | | | [...] | | | | the CD3, CD20, [id number] | | | | | | CD138 [...] | + + + + + | [facility] | [address] | [place] [address] | | | PATHOLOGY | [address] [...]
--- OUTSIDE RECORDS SUMMARY | ~2019-08-14 | XMS | Encounter Summary ---
Demographics + + + | Address | [address] | | | [place] [address] | + + + | Home Phone | | + + + | Preferred Language | Unknown | + + + | Marital Status | | + + + | Alevism Affiliation | NON | + + + | Race | White | + + + | Ethnic Group | Not or | + + + Author + + + | Author | [facility] | + + + | Organization | [facility] | + + + | Address | Unknown | + + + | Phone | Unavailable | + + + Support + + +---------+ + | Name | Relationship | Address | Phone | + + +---------+ + | Arabella Isidro | ECON | Unknown | | + + +---------+ + Care Team Providers + +------+ + | Care Inspector Hairspring Truing Name | Role | Phone | + +------+ + | Balbir Mercer NP | PCP | | + +------+ + Reason for Visit + + + | Reason | Comments | + + + | Refill Request | | + + + Encounter Details +--------+--------+ + + + | Date | Type | Department | Care Team | Description | +--------+--------+ + + + | 03/20/ | Refill | Cardiothoracic | Quinn Alba NP | Refill Request | | 2017 | | Surgery at [facility] [address] | [address] | | | | | [address] [facility] | [place], [place] | | | | | Rd Mailcode: [address] | [address] | | | | | Physician's | [phone] | | | | | [place], | | | | | | [place] [address] | | | | | | [phone] | | | +--------+--------+ + + + Social History + +-------+ [...]
--- OUTSIDE RECORDS SUMMARY | ~2019-08-14 | XMS | Encounter Summary ---
Demographics + + + | Address | [address] | | | [place] [address] | + + + | Home Phone | | + + + | Preferred Language | Unknown | + + + | Marital Status | | + + + | Methodist Affiliation | 1013 | + + + | Race | Unknown | + + + | Ethnic Group | Unknown | + + + Author + + + | Author | [facility] [facility] (Historical as of | | | 06-05-19) | + + + | Organization | [facility] (Historical as of | | | 06-05-19) [...] Team Providers + +------+ + | Care Graduate [employer] Dean Name | Role | Phone | + +------+ + | Balbir Mercer | PCP | | + +------+ + Reason for Visit Auth/Cert +--------+--------+ + + + + | Status | Reason | Specialty | Diagnoses / | Referred By | Referred To | | | | | Procedures | Contact | Contact | +--------+--------+ + + + + | | | | Diagnoses | | | | | | | Abnormal | | | | | | | stress test | | | | | | | | | | | | | | Procedures | | | | | | | CL CORONARY | | | | | | | ANGIOGRAPHY | | | +--------+--------+ + + + + Encounter Details +--------+ + + + + | Date | Type | Department | Care Team | Description | +--------+ + + + + | 05/24/ | Hospital | [facility] | Francine Fuentes DO | Abnormal stress test | | 2019 | Encounter | [facility] | [address] | | | | | Lab [address] [facility] | [place], [place] | | | | | [place] [address] | [address] | | | | | [phone] | | | | | | | 1, [facility] | | +--------+ + + + + [...] + + + as of this encounter Last Filed Vital Signs + + + + | Vital Sign | Reading | Time Taken | + + + + | Blood Pressure | 117/78 | 05/24/2019 4:00 PM PDT | + + + + | Pulse | 60 | 05/24/2019 4:00 PM PDT | + + + + | Temperature | 36.6 C (97.8 F) | 05/24/2019 4:00 PM PDT | + + + + | Respiratory Rate | 22 | 05/24/2019 4:00 PM PDT | + + + + | Oxygen Saturation | 98% | 05/24/2019 4:00 PM PDT | + + + + | Inhaled Oxygen | - | - | | Concentration | | | + + + + | Weight | 127.3 kg (280 lb | 05/24/2019 8:27 AM PDT | | | 10.3 oz) | | + + + + | Height | 157.5 cm (5' 2") | 05/24/2019 8:27 AM PDT | + + + + | Body Mass Index | 51.33 | 05/24/2019 8:27 AM PDT | + + + + in this encounter Discharge Instructions Keri Kapadia RN - 05/24/2019TR BAND Discharge Instructions You have had a procedure where the radial artery was used as access. Subsequently you had a TR band applied to stop bleeding. For 24 hours Avoid excessive extension and flexion wrist movement. Do no subject the hand to any foreceful movements (ie. Supporting weight when rising fro m a cj or bed) Do not drive a car For 48 hours: Avoid heavy lifting (anything greater than 1 pound) with the affected arm for 2 days fol lowing discharge (consider your purse) Do not operate a lawnmower, motorcycle, chainsaw or all-terrain vehicle Avoid excessive extension and flexion wrist movements Do not engage in vigorous exercise (tennis or golf) using the affected arm For 7 days: Do not immerse your arm in water (handwashing, hot tub, bath tub) If bleeding occurs following discharge: Sit down and apply firm pressure to the site with your fingers for 10 minutes. If the blee ding stops, continue to sit quietly, keeping your wrist straight for 2 hours. Gently wipe t he area clean and cover with a bandage. Notify your physician as soon as possible If the bleeding does not stop after 10 miutes, there is a large amount of bleeding or spurt ing, call 911 immediately. DO NOT DRIVE your self to the hospital emergency room. Other concerns: The site may be slightly bruised and sore following your procedure. There may be mild ting ling of your hand and tenderness at the site for up to 3 days. If this persists or any of t he following occur, contact your physician immediately. Redness/inflammation, swelling, chills or fever or colored drainage at the procedures site within 3 - 7 days after your procedure coldness, discoloration, ongoing numbness, severe pain or swelling Follow all other instructions given to you by your physician. in this encounter Medications at Time of Discharge + + +--------+---------+ + + | Medication | Sig. | Disp. | Refills | Start | End Date | | | | | | Date | | + + +--------+---------+ + + | aspirin 81 MG | Take 81 mg by mouth | | | | | | chewable tablet | daily with | | | | | | | breakfast. | | | | | + + +--------+---------+ + + | atorvastatin | | | | 03/18/20 | | | (LIPITOR) 40 MG | | | | 18 | | | tablet | | | | | | + + +--------+---------+ + + | clopidogrel | Take 75 mg by mouth | | 0 | 03/29/20 | | | (PLAVIX) 75 MG | daily. | | | 18 | | | tablet | | | | | | + + +--------+---------+ + + | gabapentin | | | | 03/25/20 | | | (NEURONTIN) 300 MG | | | | 18 | | | capsule | | | | | | + + +--------+---------+ + + | isosorbide | Take 1 tablet by | 30 | 11 | 04/29/20 | | | mononitrate (IMDUR) | mouth daily. | tablet | | 19 | 0 | | 30 MG 24 hr tablet | | | | | | + + +--------+---------+ + + | metFORMIN | | | | 03/18/20 | | | (GLUCOPHAGE) 500 MG | | | | 18 | | | tablet | | | | | | + + +--------+---------+ + + | metoprolol | Take 1 tablet by | 30 | 11 | 02/12/20 | | | (TOPROL-XL) 50 MG 24 | mouth daily. | tablet | | 19 | 0 | | hr tablet | | | | | | + + +--------+---------+ + + | nitroGLYCERIN | Place 0.4 mg under | | | | | | (NITROSTAT) 0.4 MG | the tongue every 5 | | | | | | SL tablet | (five) minutes as | | | | | | | needed for Chest | | | | | | | pain. | | | | | + + +--------+---------+ + + | VENTOLIN HFA 108 | | | | 02/06/20 | | | (90 Base) MCG/ACT | | | | 18 | | | inhaler | | | | | | + + +--------+---------+ + + as of this encounter Plan of Treatment Not on fileas of this encounter Procedures + +--------+ + + + | Procedure Name | Priori | Date/Time | Associated Diagnosis | Comments | | | ty | | | | + +--------+ + + + | CL CORONARY | Routin | 05/24/2019 | Abnormal stress | Results for this | | ANGIOGRAPHY | e | 11:14 AM | test | procedure are in the | | | | PDT | | results section. | + +--------+ + + + | CL ULTRASOUND | Routin | 05/24/2019 | | Results for this | | GUIDANCE VASCULAR | e | 10:38 AM | | procedure are in the | | ACCESS | | PDT | | results section. | + +--------+ + + + | CBC W/NO DIFF | STAT | 05/24/2019 | | Results for this | | | | 9:03 AM | | procedure are in the | | | | PDT | | results section. | + +--------+ + + + | BASIC METABOLIC | STAT | 05/24/2019 | | Results for this | | PANEL | | 9:03 AM | | procedure are in the | | | | PDT | | results section. | + +--------+ + + + in this encounter Results CL guidance vascular access US (05/24/2019 10:38 AM) + + + | Narrative | Performed At | + + + | This Point of Care (POC) ultrasound image has been reviewed and | [facility] | | interpreted by the physician identified as the performing physician in | [facility] | | the associated interpretation and report. | | + + + + + + + + | Performing | Address | City/State/Zipcode | Phone Number | | Organization | | | | + + + + + | [facility] | [address] | [facility] [place] [address] | | + + + + + Basic metabolic panel (05/24/2019 9:03 AM) + + + + + | Component | Value | Ref Range | Performed At | + + + + + | SODIUM | 142 | 135 - 145 mmol/L | [facility] | + + + + + | POTASSIUM | 4.0 | 3.5 - 4.9 mmol/L | [facility] | + + + + + | CHLORIDE | 112 (H) | 99 - 109 mmol/L | [facility] | + + + + + | CO2 | 26 | 23 - 32 mmol/L | [facility] | + + + + + | ANION GAP AGAP | 8 | 5 - 20 mmol/L | [facility] | + + + + + | GLUCOSE | 98 | 65 - 99 mg/dL | [facility] | + + + + + | BUN | 7 (L) | 8 - 25 mg/dL | [facility] | + + + + + | CREATININE | 0.83 | 0.50 - 1.00 mg/dL | [facility] | + + + + + | BUN/CREAT | 8 | | [facility] | + + + + + | CALCIUM | 7.9 (L) | 8.5 - 10.5 mg/dL | [facility] | + + + + + | EGFR | >60Comment: GFR <60: | >60 mL/min/1.73m2 | [facility] | | | CHRONIC KIDNEY DISEASE, | | | | | IF FOUND OVER A 3 MONTH | | | | | PERIOD.GFR <15: KIDNEY | | | | | FAILURE.FOR | | | | | AMERICANS, MULTIPLY THE | | | | | CALCULATED GFR BY | | | | | 1.210.This eGFR is | | | | | calculated using the | | | | | [facility] traceable | | | | | equation.Testing | | | | | performed at [facility];[address] | | | | | [facility];[place] | | | | | [address] | | | + + + + + + + | Specimen | + + | Blood | + + + + + + + | Performing | Address | City/State/Zipcode | Phone Number | | Organization | | | | + + + + + | [facility] | [address] | [place] [address] | | + + + + + CBC w/no diff (05/24/2019 9:03 AM) + + + + + | Component | Value | Ref Range | Performed At | + + + + + | WBC | 4.89 | 3.80 - 11.00 K/uL | [facility] | + + + + + | RBC | 4.43 | 3.70 - 5.10 M/uL | [facility] | + + + + + | HGB | 13.2 | 11.3 - 15.5 g/dL | [facility] | + + + + + | HCT | 40.1 | 34.0 - 46.0 % | [facility] | + + + + + | MCV | 90.5 | 80.0 - 100.0 fl | [facility] | + + + + + | MCH | 29.7 | 27.0 - 34.0 pg | [facility] | + + + + + | MCHC | 32.8 | 32.0 - 35.5 g/dL | [facility] | + + + + + | RDW SD | 43.3 | 37 - 53 fl | [facility] | + + + + + | PLT | 270 | 150 - 400 K/uL | [facility] | + + + + + | MPV | 8.2Comment: Testing | fl | [facility] | | | performed at [facility];[address] | [address];[place] | | | | | [address] | | | + + + + + + + + + + | Performing | Address | City/State/Zipcode | Phone Number | | Organization | | | | + + + + + | [facility] | [address] | [place] [address] | | + + + + + in this encounter Visit Diagnoses + + | Diagnosis | + + | Abnormal stress test | + + | Other nonspecific abnormal cardiovascular system function study | + + Admitting Diagnoses + + | Diagnosis | + + | Abnormal stress test | + + | Other nonspecific abnormal cardiovascular system function study | + + Administered Medications + +--------+---------+------+------+------+ | Medication Order | MAR | Action | Dose | Rate | Site | | | Action | Date | | | | + +--------+---------+------+------+------+ + +---+ | acetaminophen (TYLENOL) tablet | | | 650 mg 650 mg, Oral, Every 4 | | | Hours PRN, Mild Pain (1-3), | | | Fever, Starting 05/24/19 at | | | 1139 | | + +---+ | | | + +---+ + +-------+ +--------+---+---+ | aspirin chewable tablet 324 mg | Given | 05/24/2019 | 324 mg | | | | 324 mg, Oral, Once, 05/24/19 | | 08:45 | | | | | at 0900, For 1 dose, Pre-op | | PDT | | | | + +-------+ +--------+---+---+ + +---+ | | | + +---+ | atropine sulfate injection 0.5 | | | mg 0.5 mg, Intravenous, Once | | | PRN, For sheath removal., | | | Starting Fri05/24/19 at 1139, For | | | 24 hours | | + +---+ | | | + +---+ + +-------+ +-------+---+---+ | clopidogrel (PLAVIX) tablet 75 | Given | 05/24/2019 | 75 mg | | | | mg 75 mg, Oral, Once, Fri05/24/19 | | 11:11 | | | | | at 1100, For 1 dose, | | PDT | | | | | Intra-procedure (CATH/IR) | | | | | | + +-------+ +-------+---+---+ + +---+ | | | + +---+ | fentaNYL (SUBLIMAZE) injection | | | 25 mcg 25 mcg, Intravenous, PRN, | | | For pain, titrate up to ordered | | | dose per MD instructions., | | | Starting Fri05/24/19 at 0930, | | | Intra-procedure (CATH/IR) | | + +---+ | | | + +---+ | fentaNYL (SUBLIMAZE) injection | | | 25 mcg 25 mcg, Intravenous, | | | Every 4 Hours PRN, For pain 4 to | | | 9, Starting Fri05/24/19 at 1139 | | + +---+ | | | + +---+ + +-------+ +--------+---+---+ | fentaNYL (SUBLIMAZE) injection | Given | 05/24/2019 | 25 mcg | | | | Once PRN, Starting 05/24/19 at | | 10:35 | | | | | 1035, Intra-procedure (CATH/IR) | | PDT | | | | + +-------+ +--------+---+---+ +-------+ +--------+---+---+ | Given | 05/24/2019 | 25 mcg | | | | | 10:39 | | | | | | PDT | | | | +-------+ +--------+---+---+ | Given | 05/24/2019 | 25 mcg | | | | | 11:00 | | | | | | PDT | | | | +-------+ +--------+---+---+ +---+---+ | | | +---+---+ + +-------+ +--------+---+---+ | heparin (porcine) 1000 UNIT/ML | Given | 05/24/2019 | 5,000 | | | | injection Once PRN, Starting Mon | | 10:42 | Units | | | | 05/24/19 at 1042, Intra-procedure | | PDT | | | | | (CATH/IR) | | | | | | + +-------+ +--------+---+---+ +---+---+ | | | +---+---+ + +-------+ +--------+---+---+ | iohexol (OMNIPAQUE 300) 300 | Given | 05/24/2019 | 27 mLs | | | | mg/mL injection 27 mL 27 mL, | | 11:13 | | | | | Intra-arterial, Img Once PRN, | | PDT | | | | | Other, Starting Fri05/24/19 at | | | | | | | 1112, For 1 dose | | | | | | + +-------+ +--------+---+---+ +---+---+ | | | +---+---+ + +-------+ +--------+---+---+ | lidocaine 1 % injection Once | Given | 05/24/2019 | 10 mLs | | | | PRN, During PCI per physician, | | 10:35 | | | | | Starting Fri05/24/19 at 1035, | | PDT | | | | | Intra-procedure (CATH/IR) | | | | | | + +-------+ +--------+---+---+ + +---+ | | | + +---+ | midazolam (VERSED) injection 1 | | | mg 1 mg, Intravenous, PRN, | | | Anxiety, Sedation, Starting Mon | | | 05/24/19 at 0930, Intra-procedure | | | (CATH/IR) | | + +---+ | | | + +---+ + +-------+ +------+---+---+ | midazolam (VERSED) injection | Given | 05/24/2019 | 1 mg | | | | Intravenous, Once PRN, Starting | | 10:35 | | | | | 05/24/19 at 1035, | | PDT | | | | | Intra-procedure (CATH/IR) | | | | | | + +-------+ +------+---+---+ + +---+ | | | + +---+ | nitroGLYCERIN (NITROSTAT) SL | | | tablet 0.4 mg 0.4 mg, | | | Sublingual, Every 5 Min PRN, | | | Chest pain, Starting Fri05/24/19 | | | at 1139 | | + +---+ | | | + +---+ + +-------+ +---------+---+---+ | nitroGLYCERIN 100 mcg/mL | Given | 05/24/2019 | 200 mcg | | | | (TRIDIL) injection Once PRN, | | 10:42 | | | | | Starting Fri05/24/19 at 1042, | | PDT | | | | | Intra-procedure (CATH/IR) | | | | | | + +-------+ +---------+---+---+ +-------+ +---------+---+---+ | Given | 05/24/2019 | 200 mcg | | | | | 11:01 | | | | | | PDT | | | | +-------+ +---------+---+---+ + +---+ | | | + +---+ | ondansetron (ZOFRAN) injection | | | 4 mg 4 mg, Intravenous, Every 6 | | | Hours PRN, Nausea, Starting Mon | | | 05/24/19 at 1139 | | + +---+ | | | + +---+ | sodium chloride (bolus) 0.9 % | | | 500 mL 500 mL, Intravenous, Once | | | PRN, For sheath removal., | | | Starting 05/24/19 at 1139, For | | | 24 hours | | + +---+ | | | + +---+ + +---------+ +---+-------+---+ | sodium chloride 0.9 % infusion | New Bag | 05/24/2019 | | 110 | | | at 110 mL/hr, Intravenous, | | 08:28 | | mL/hr | | | Continuous, Starting 05/24/19 | | PDT | | | | | at 0900, Pre-op | | | | | | + +---------+ +---+-------+---+ +---+---+ | | | +---+---+ in this encounter
--- OUTSIDE RECORDS SUMMARY | ~2019-08-14 | XMS | Encounter Summary ---
Demographics + + + | Address | [address] | | | [place] [address] | + + + | Home Phone | | + + + | Preferred Language | Unknown | + + + | Marital Status | | + + + | Jewish Affiliation | NON | + + + | Race | White | + + + | Ethnic Group | Not or | + + + Author + + + | Author | [facility] | + + + | Organization | [facility] | + + + | Address | Unknown | + + + | Phone | Unavailable | + + + Support + + +---------+ + | Name | Relationship | Address | Phone | + + +---------+ + | Arabella Isidro | ECON | Unknown | | + + +---------+ + Care Team Providers + +------+ + | Care Water Pollution Control Inspector Name | Role | Phone | + [...] 03/20/ | Refill | Cardiothoracic | Quinn Abla NP | Refill Request | | 2017 | | Surgery at [facility] [address] | [address] | | | | | [address] [facility] | [place], [place] | | | | | [address]: [address] | [address] | | | | | Physician's | [phone] | | | | | [place], | | | | | | [place] [address] | | | | | | [phone] | | | +--------+--------+ + + + [...]
--- OUTSIDE RECORDS SUMMARY | ~2019-08-14 | XMS | Encounter Summary ---
Demographics + + + | Address | [address] | | | [place] [address] | + + + | Home Phone | | + + + | Preferred Language | Unknown | + + + | Marital Status | | + + + | Sikhism Affiliation | NON | + + + | Race | White | + + + | Ethnic Group | Not or | + + + Author + + + | Author | [facility] | + + + | Organization | [facility] | + + + | Address | Unknown | + + + | Phone | Unavailable | + + + Support + + +---------+ + | Name | Relationship | Address | Phone | + + +---------+ + | Arabella Isidro | ECON | Unknown | | + + +---------+ + Care Team Providers + +------+ + | Care Manufacturing Automation Engineer Name | Role | Phone | + +------+ + | Balbir Mercer NP | PCP | | + +------+ + Encounter Details +--------+ + + + + | Date | Type | Department | Care Team | Description | +--------+ + + + + | 03/19/ | MyChart | Cardiothoracic | Michelle Aguirre, | RE: results | | 2017 | Encounter | [facility] [address] | PA[address]C [address] | | | | | [address] | [address] | | | | | [address]: [address] | [place], [place] | | | | | Physician's | [address] | | | | | [place], | [phone] | | | | | [place] [address] | | | | | | [phone] | | | +--------+ + + + [...]
--- OUTSIDE RECORDS SUMMARY | ~2019-08-14 | XMS | Encounter Summary ---
Demographics + + + | Address | [address] | | | [place] [address] | + + + | Home Phone | | + + + | Preferred Language | Unknown | + + + | Marital Status | | + + + | Sabianism Affiliation | 1013 | + + + | Race | Unknown | + + + | Ethnic Group | Unknown | + + + Author + + + | Author | [facility] (Historical as of | | | 06-05-19) | + + + | Organization | [facility] (Historical as of | | | 06-05-19) [...] Team Providers + +------+ + | Care Fence Installer Foreman Name | Role | Phone | + [...] + + | 05/24/ | Hospital | [facility] | Francine Fuentes DO | Abnormal stress test | | 2019 | Encounter | [facility] | [address] | | | | | [facility] [address] [facility] | [place], [place] | | | | | [place] [address] | [address] | | | | | [phone] | | | | | | | 1, [facility] [address] | | +--------+ + + + + [...] [facility] | [address] | [facility] [place] [address] | | + + + + + [...] (L) | 8.5 - 10.5 mg/dL | [facility] | + + + + + | EGFR | >60Comment: GFR <60: | >60 mL/min/1.73m2 | [facility] | | | CHRONIC [...] the | | | | | [facility] traceable | | | | | equation.Testing | | | | | performed at [facility];[address] | | | | | [facility];[place] | | | | | [address] | | | + + + + + + + | Specimen | + + | Blood | + + + + + + + | Performing | Address | City/State/Zipcode | Phone Number | | Organization | | | | + + + + + | [facility] | [address] | [place] [address] | | + + + + + CBC w/no diff (05/24/2019 9:03 AM) + + + + + | Component | Value | Ref Range | Performed At | + + + + + | WBC | 4.89 | 3.80 - 11.00 K/uL | [facility] | + + + + + | RBC | 4.43 | 3.70 - 5.10 M/uL | [facility] | + + + + + | HGB | 13.2 | 11.3 - 15.5 g/dL | [facility] | + + + + + [...] MPV | 8.2Comment: Testing | fl | [facility] | | | performed at [facility];[address];[place] | | | | | [address] | | | + + + + + + + + + + | Performing | Address | City/State/Zipcode | Phone Number | | Organization | | | | + + + + + | [facility] | [address] | [place] [address] | | + + + + + [...]
--- OUTSIDE RECORDS SUMMARY | ~2019-08-14 | XMS | Encounter Summary ---
Demographics + + + | Address | [address] | | | [place] [address] | + + + | Home Phone | | + + + | Preferred Language | Unknown | + + + | Marital Status | | + + + | Religion Affiliation | NON | + + + | Race | White | + + + | Ethnic Group | Not or | + + + Author + + + | Author | [facility] | + + + | Organization | [facility] | + + + | Address | Unknown | + + + | Phone | Unavailable | + + + Support + + +---------+ + | Name | Relationship | Address | Phone | + + +---------+ + | Arabella Isidro | ECON | Unknown | | + + +---------+ + Care Team Providers + +------+ + | Care Protective Services Case Worker Name | Role | Phone | [...] | | | [address]: [address] | [place], [place] | | | | | Physician's | [address] | | | | | [place], | [phone] | | | | | [place] [address] | | | | | | [phone] | | | +--------+ + + + [...]
--- OUTSIDE RECORDS SUMMARY | ~2019-08-14 | XMS | Clinical Summary ---
Demographics + + + | Address | [address] | | | [place] [address] | + + + | Home Phone | | + + + | Preferred Language | Unknown | + + + | Marital Status | | + + + | Congregational Affiliation | 1013 | + + + | Race | Unknown | + + + | Ethnic Group | Unknown | + + + Author + + + | Author | [facility] (Historical as of | | | 06-05-19) | + + + | Organization | [facility] (Historical as of | | | 06-05-19) [...] Team Providers + +------+ + | Care Stock Supervisor Name | Role | Phone | + +------+ + | Balbir Mercer | PP | | + +------+ + Allergies No Known Allergies Current Medications + + +--------+---------+------+------+-------+ | Prescription | Sig. | Disp. | Refills | Star | End | Statu | | | | | | t | Date | s | | | | | | Date | | | + + +--------+---------+------+------+-------+ | VENTOLIN HFA 108 | | | | 04/1 | | Activ | | (90 Base) MCG/ACT | | | | 9/20 | | e | | inhaler | | | | 18 | | | + + +--------+---------+------+------+-------+ | atorvastatin | | | | 05/3 | | Activ | | (LIPITOR) 40 MG | | | | 0/20 | | e | | tablet | | | | 18 | | | + + +--------+---------+------+------+-------+ | gabapentin | | | | 06/0 | | Activ | | (NEURONTIN) 300 MG | | | | 6/20 | | e | | capsule | | | | 18 | | | + + +--------+---------+------+------+-------+ | metFORMIN | | | | 05/3 | | Activ | | (GLUCOPHAGE) 500 MG | | | | 0/20 | | e | | tablet | | | | 18 | | | + + +--------+---------+------+------+-------+ | nitroGLYCERIN | Place 0.4 mg under | | | | | Activ | | (NITROSTAT) 0.4 MG | the tongue every 5 | | | | | e | | SL tablet | (five) minutes as | | | | | | | | needed for Chest | | | | | | | | pain. | | | | | | + + +--------+---------+------+------+-------+ | clopidogrel | Take 75 mg by mouth | | 0 | 06/1 | | Activ | | (PLAVIX) 75 MG | daily. | | | 0/20 | | e | | tablet | | | | 18 | | | + + +--------+---------+------+------+-------+ | aspirin 81 MG | Take 81 mg by mouth | | | | | Activ | | chewable tablet | daily with | | | | | e | | | breakfast. | | | | | | + + +--------+---------+------+------+-------+ | metoprolol | Take 1 tablet by | 30 | 11 | 04/2 | 04/2 | Activ | | (TOPROL-XL) 50 MG 24 | mouth daily. | tablet | | /20 | 4/20 | e | | hr tablet | | | | 19 | 20 | | + + +--------+---------+------+------+-------+ | isosorbide | Take 1 tablet by | 30 | 11 | 04/19 | 04/19 | Activ | | mononitrate (IMDUR) | mouth daily. | tablet | | 11/08 | 0/20 | e | | 30 MG 24 hr tablet | | | | 19 | 20 | | + + +--------+---------+------+------+-------+ Active Problems + + + | Problem | Noted Date | + + + | PCOS (polycystic ovarian syndrome) | 04/29/2019 | + + + + + | Overview: Overview: | | On metformin | + + + + + | Sarcoid | 04/04/2017 | + + + | Chest pain [...] 50 | 01/19/2017 | + + + Encounters +--------+ + + + + | Date | Type | Specialty | Care Team | Description | +--------+ + + + + | 05/24/ | Hospital | | Francine Fuentes DO | Abnormal stress test | | 2018 | Encounter | | [facility] Apprenticeship Representative | | +--------+ + + + + | 05/24/ | Procedure | | | | | 2019 | Pass | | | | +--------+ + + + + | 04/29/ | Procedure | | | | | 2019 | Pass | | | | +--------+ + + + + from Last 3 Months Immunizations + + + + | Name | Dates Previously Given | Next Due | + + + + | Influenza 4y or | 07/29/2017, 07/29/2016 | | | >,Quad derived from | | | | Tiss-cult (MDV) | | | + + + + | MMR | 11/07/1999 | | + + + + Family History + + +------+ + | Medical History | Relation | Name | Comments | + + +------+ + | Heart attack | Father | | | + + +------+ + | High cholesterol | Father | | | + + +------+ + | Hypertension | Father | | | + + +------+ + | Sudden | Father | | | + + +------+ + | Cancer | Mother | | breast cancer | + + +------+ + | Heart attack | Mother | | | + + +------+ + | Hypertension | Mother | | | + + +------+ + + +------+--------+ + | Relation | Name | Status | Comments | + +------+--------+ + | Father | | Alive | | + +------+--------+ + | Mother | | Alive | | + +------+--------+ + Social History + +-------+ +--------+------+ | [...] | + + + + + | Cervical Cancer | | | | | Screening (Pap) | 5 | | | + + + + + | Vaccine: Influenza | | 07/29/2017, 07/29/2016 | | | (#1) | 9 | | | + + + + + Procedures + +--------+ + + + | [...] section. | + +--------+ + + + from Last 3 Months Results CL coronary angio (05/24/2019 11:14 AM) + + + | Narrative | Performed At | + + + | | [facility] | | | RADIOLOGY | | CORONARY ANGIOGRAM REPORT DATE OF PROCEDURE: 05/24/2019 | | | PROCEDURES PERFORMED: 1. Conscious sedation. | | | 2. Ultrasound-guided vascular access. 3. Coronary angiography. | | | INDICATION: Chest pain and abnormal stress test. HISTORY OF | | | PRESENT ILLNESS: The patient is a 34-year-old female with the | | | past medical history of pulmonary sarcoidosis and the history of PA | | | times 2; one treated in [place] and more recently in 2018, PA | | | treated at [facility]. During that admission, she was | | | found to have suspected thrombotic occlusion of small coronary | | | arteries including an inferior branch of the OM3 and a superior | | | branch of the second diagonal. She presented to the outpatient clinic | | | with persistent chest pain on exertion and dyspnea on exertion A | | | nuclear stress test was ordered which demonstrated an ejection | | | fraction of 46 percent and ischemia involving the lateral | | | wall. Coronary angiography was offered in the setting, the risks, | | | benefits, and alternatives were discussed with the patient and she | | | agreed to proceed. PROCEDURE IN DETAIL: The patient was | | | brought to the cardiac catheterization lab in a fasting | | | state. After informed consent was obtained, the patient was | | | prepped and draped in the usual sterile fashion. A time-out was | | | called for the patient's safety. The right radial artery was | | | visualized under ultrasound guidance and a 5-Swiss sidearm sheath was | | | inserted into the right radial artery. An antispasmodic solution | | | of 5000 units of heparin and 200 mcg of nitroglycerin were given | | | intraarterially to prevent spasm. A 5-Swiss Tommy catheter was | | | then advanced to the aortic root. The left coronary ostium was | | | selectively cannulated and multiple images in various projections of | | | this vessel were obtained following intracoronary contrast | | | injection. There was noted to be some arterial spasm at this point | | | in the procedure. The 5-Swiss Tommy catheter was then | | | removed. An additional 2000 mcg of nitroglycerin were given | | | intraarterially. A 5-Swiss FR4 catheter was then advanced to the | | | aortic root. The right coronary ostium was selectively cannulated | | | and multiple images in various projections of this vessel were | | | obtained following intracoronary contrast injection. The 5-Swiss | | | FR4 catheter was then removed and a TR band was applied. The | | | patient tolerated the procedure well without any immediate | | | postoperative complications. FINDINGS: HEMODYNAMICS: Aortic | | | pressure 115/67, mean arterial pressure 89. CORONARY ANATOMY: | | | 1. Left main: The left main coronary artery is normal in | | | caliber. There is no angiographically significant disease. It | | | trifurcates distally into the LAD, ramus, and circumflex. | | | 2. LAD: The LAD is a moderate size vessel at its origin, it | | | gives rise to a moderate caliber diagonal branch from its mid | | | section. It looks like there may have been a superior branch of | | | this diagonal which is totally occluded. There is no significant | | | disease within the LAD. 3. Ramus. The ramus intermedius is a | | | small caliber vessel with no angiographically significant disease. | | | 4. Circumflex: The circumflex is a moderate size vessel. It | | | looks like there is a small first obtuse marginal which arises from | | | the mid circumflex which is totally occluded. There are noted to | | | be left to left collaterals filling the distal aspect of this vessel. | | | 5. The second obtuse marginal is widely patent. | | | CONCLUSIONS: Total occlusion of a small first obtuse marginal | | | branch and total occlusion of superior branch of the first diagonal | | | which appears small. RECOMMENDATIONS: At this time, recommend | | | medical management. This may be most likely of cardiac involvement | | | of her sarcoidosis. We will pursue cardiac MRI. In the | | | meantime, continue aspirin and Plavix. Read by FRANCINE FUENTES DO | | | 05/24/2019 11:12 A Electronically signed by Francine Fuentes MD on | | | 06/04/2019 12:15 PM | | + + + + + | Procedure Note | + + | Tashi Gill Results In - 06/04/2019 12:33 PM PDT | | | | CORONARY ANGIOGRAM REPORT | | | | DATE OF PROCEDURE: 05/24/2019 | | | | PROCEDURES PERFORMED: | | 1. Conscious sedation. | | 2. Ultrasound-guided vascular access. | | 3. Coronary angiography. | | | | INDICATION: Chest pain and abnormal stress test. | | | | HISTORY OF PRESENT ILLNESS: The patient is a 34-year-old female with the | | past medical history of pulmonary sarcoidosis and the history of PA times | | 2; one treated in [place] and more recently in 2018, PA treated at | | [facility]. During that admission, she was found to have | | suspected thrombotic occlusion of small coronary arteries including an | | inferior branch of the OM3 and a superior branch of the second diagonal. | | She presented to the outpatient clinic with persistent chest pain on | | exertion and dyspnea on exertion A nuclear stress test was ordered which | | demonstrated an ejection fraction of 46 percent and ischemia involving the | | lateral wall. Coronary angiography was offered in the setting, the risks, | | benefits, and alternatives were discussed with the patient and she agreed | | to proceed. | | | | PROCEDURE IN DETAIL: The patient was brought to the cardiac | | catheterization lab in a fasting state. After informed consent was | | obtained, the patient was prepped and draped in the usual sterile fashion. | | A time-out was called for the patient's safety. The right radial artery | | was visualized under ultrasound guidance and a 5-Swiss sidearm sheath was | | inserted into the right radial artery. An antispasmodic solution of 5000 | | units of heparin and 200 mcg of nitroglycerin were given intraarterially to | | prevent spasm. A 5-Swiss Tommy catheter was then advanced to the aortic | | root. The left coronary ostium was selectively cannulated and multiple | | images in various projections of this vessel were obtained following | | intracoronary contrast injection. There was noted to be some arterial | | spasm at this point in the procedure. The 5-Swiss Tommy catheter was then | | removed. An additional 2000 mcg of nitroglycerin were given | | intraarterially. A 5-Swiss FR4 catheter was then advanced to the aortic | | root. The right coronary ostium was selectively cannulated and multiple | | images in various projections of this vessel were obtained following | | intracoronary contrast injection. The 5-Swiss FR4 catheter was then | | removed and a TR band was applied. The patient tolerated the procedure | | well without any immediate postoperative complications. | | | | FINDINGS: | | HEMODYNAMICS: Aortic pressure 115/67, mean arterial pressure 89. | | | | CORONARY ANATOMY: | | 1. Left main: The left main coronary artery is normal in caliber. There | | is no angiographically significant disease. It trifurcates distally into | | the LAD, ramus, and circumflex. | | 2. LAD: The LAD is a moderate size vessel at its origin, it gives rise to | | a moderate caliber diagonal branch from its mid section. It looks like | | there may have been a superior branch of this diagonal which is totally | | occluded. There is no significant disease within the LAD. | | 3. Ramus. The ramus intermedius is a small caliber vessel with no | | angiographically significant disease. | | 4. Circumflex: The circumflex is a moderate size vessel. It looks like | | there is a small first obtuse marginal which arises from the mid circumflex | | which is totally occluded. There are noted to be left to left collaterals | | filling the distal aspect of this vessel. | | 5. The second obtuse marginal is widely patent. | | | | CONCLUSIONS: Total occlusion of a small first obtuse marginal branch and | | total occlusion of superior branch of the first diagonal which appears | | small. | | | | RECOMMENDATIONS: At this time, recommend medical management. This may be | | most likely of cardiac involvement of her sarcoidosis. We will pursue | | cardiac MRI. In the meantime, continue aspirin and Plavix. | | | | Read by FRANCINE FUENTES DO 05/24/2019 11:12 A | | | | | + + + + + + + | Performing | Address | City/State/Zipcode | Phone Number | | Organization | | | | + + + + + | [facility] | [address] | [place] [address] | | + + + + + CL guidance vascular access US (05/24/2019 10:38 AM) + + + | Narrative | Performed At | + + + | This Point of Care (POC) ultrasound image has been reviewed and | [facility] | | interpreted by the physician identified as the performing physician in | RADIOLOGY | | the associated interpretation and report. | | + + + + + + + + | Performing | Address | City/State/Zipcode | Phone Number | | Organization | | | | + + + + + | [facility] | [address] | [place] [address] | | + + + + + CBC w/no diff (05/24/2019 9:03 AM) + + + + + | Component | Value | Ref Range | Performed At | + + + + + | WBC | 4.89 | 3.80 - 11.00 K/uL | [facility] | + + + + + | RBC | 4.43 | 3.70 - 5.10 M/uL | [facility] | + + + + + | HGB | 13.2 | 11.3 - 15.5 g/dL | [facility] | + + + + + | HCT | 40.1 | 34.0 - 46.0 % | [facility] | + + + + + | MCV | 90.5 | 80.0 - 100.0 fl | [facility] | + + + + + | MCH | 29.7 | 27.0 - 34.0 pg | [facility] | + + + + + | MCHC | 32.8 | 32.0 - 35.5 g/dL | [facility] | + + + + + | RDW SD | 43.3 | 37 - 53 fl | [facility] | + + + + + | PLT | 270 | 150 - 400 K/uL | [facility] | + + + + + | MPV | 8.2Comment: Testing | fl | [facility] | | | performed at [facility];[address] | | | | | [address];[place] | | | | | [address] | | | + + + + + + + + + + | Performing | Address | City/State/Zipcode | Phone Number | | Organization | | | | + + + + + | [facility] | [address] | [place] [address] | | + + + + + Basic metabolic panel (05/24/2019 9:03 AM) + + + + + | Component | Value | Ref Range | Performed At | + + + + + | SODIUM | 142 | 135 - 145 mmol/L | [facility] | + + + + + | POTASSIUM | 4.0 | 3.5 - 4.9 mmol/L | [facility] | + + + + + | CHLORIDE | 112 (H) | 99 - 109 mmol/L | [facility] | + + + + + | CO2 | 26 | 23 - 32 mmol/L | [facility] | + + + + + | ANION GAP AGAP | 8 | 5 - 20 mmol/L | [facility] | + + + [...] (L) | 8.5 - 10.5 mg/dL | [facility] | + + + + + | EGFR | >60Comment: GFR <60: | >60 mL/min/1.73m2 | [facility] | | | CHRONIC KIDNEY DISEASE, [...] the | | | | | [facility] traceable | | | | | equation.Testing | | | | | performed at [facility];[address] | | | | | [facility];[place], [place] | | | | | [address] | | | + + + + + + + | Specimen | + + | Blood | + + + + + + + | Performing | Address | City/State/Zipcode | Phone Number | | Organization | | | | + + + + + | [facility] | [address] | [place] [address] | | + + + + + from Last 3 Months Insurance + +--------+ +------+-------+ + | Payer | Benefi | Subscriber | Type | Phone | Address | | | t Plan | ID | | | | | | / | | | | | | | Group | | | | | + +--------+ +------+-------+ + | MEDICAID | [employer] | [id number] | | | [address] | | | N | | | | [place], [place] | | | [place] | | | | [address] | | | OUTREACH CONSULTANT | | | | | + +--------+ +------+-------+ + | MEDICAID | [employer] | [id number] | | | [address] | | | N | | | | [place], [place] | | | [place] | | | | [address] | | | OUTREACH CONSULTANT | | | | | + +--------+ +------+-------+ + + +--------+ +--------+ + + | Guarantor Name | Accoun | Relation to | Date | Phone | Billing Address | | | t Type | Patient | of | | | | | | | | | | + +--------+ +--------+ + + | DOUGLAS AMARO | Person | Self [birth year] | Home: | [address] | | | al/Fam | | 1985 | [phone] | [place] | | | [place] | | | [phone] | [address] | + +--------+ +--------+ + +
--- OUTSIDE RECORDS SUMMARY | ~2019-08-14 | XMS | Encounter Summary ---
Demographics + + + | Address | [address] | | | [place] [address] | + + + | Home Phone [...] Team Providers + +------+ + | Care Corrosion Control Specialist Name | Role | Phone | + [...] | | | [address] | [place], [place] | | | | | Rd [address]: [address] | [address] | | | | | Physician's | [phone] | | | | | [place], | | | | | | [place] [address] | | | | | | [phone] | | | +--------+ + + + [...]
--- OUTSIDE RECORDS SUMMARY | ~2019-08-14 | XMS | Encounter Summary ---
Demographics + + + | Address | [address] | | | [place] [address] | + + + | Home Phone | | + + + | Preferred Language | Unknown | + + + | Marital Status | | + + + | Voodoo Affiliation | NON | + + + | Race | White | + + + | Ethnic Group | Not or | + + + Author + + + | Author | [facility] | + + + | Organization | [facility] | + + + | Address | Unknown | + + + | Phone | Unavailable | + + + Support + + +---------+ + | Name | Relationship | Address | Phone | + + +---------+ + | Arabella Isidro | ECON | Unknown | | + + +---------+ + Care Team Providers + +------+ + | Care Double End Tenoner Operator Name | Role | Phone | [...] | [address] | [place], | | | | | Mailcode: [address] | [place] [address] | | | | | [place], [place] | | | | | | [address] | | | | | | [phone] | | | +--------+ + + + [...]
--- OUTSIDE RECORDS SUMMARY | ~2019-08-14 | XMS | Encounter Summary ---
Demographics + + + | Address | [address] | | | [place] [address] | + + + | Home Phone | | + + + | Preferred Language | Unknown | + + + | Marital Status | | + + + | Taoist Affiliation | NON | + + + | Race | White | + + + | Ethnic Group | Not or | + + + Author + + + | Author | [facility] | + + + | Organization | [facility] | + + + | Address | Unknown | + + + | Phone | Unavailable | + + + Support + + +---------+ + | Name | Relationship | Address | Phone | + + +---------+ + | Arabella Isidro | ECON | Unknown | | + + +---------+ + Care Team Providers + +------+ + | Care Cross Tie Cutter Name | Role | Phone | + +------+ + | Balbir Mercer NP | PCP | | + +------+ + Encounter Details +--------+ + + + + | Date | Type | Department | Care Team | Description | +--------+ + + + + | 03/20/ | Telephone | Cardiothoracic | Quinn Alba NP | | | 2017 | | Surgery at [facility] [address] | [address] | | | | | [address] | [place], [place] | | | | | Rd [address]: [address] | [address] | | | | | Physician's | [phone] | | | | | [place] | | | | | | [place] [address] | | | | | | [phone] | | | +--------+ + + + [...]
--- OUTSIDE RECORDS SUMMARY | ~2019-08-14 | XMS | Encounter Summary ---
Demographics + + + | Address | [address] | | | [place] [address] | + + + | Home Phone | | + + + | Preferred Language | Unknown | + + + | Marital Status | | + + + | Gnosticism Affiliation | NON | + + + | Race | White | + + + | Ethnic Group | Not or | + + + Author + + + | Author | [facility] | + + + | Organization | [facility] | + + + | Address | Unknown | + + + | Phone | Unavailable | + + + Support + + +---------+ + | Name | Relationship | Address | Phone | + + +---------+ + | Arabella Isidro | ECON | Unknown | | + + +---------+ + Care Team Providers + +------+ + | Care Hr Clerk Name | Role | Phone | [...] | lymphadenopathy | | | | at [address] | | | | | | [address] | | | | | | [place], | | | | | | [place] [address] | | | | | | [phone] | | | +--------+------+ + + + [...] LABORATORY | [address] | [place] [address] | | | [facility] | [address] [...] | | | LABORATORY | | | [facility]AT[facility]I | | | SERVICES, | | | [...] | + + + + + | [facility] | [address] | [place] [address] | | | SERVICES, CORE | [address] [...] + + + | [facility] | [address] | [place] [address] | | | [facility] | [address] | | | + + + + + documented in this encounter Visit Diagnoses + + | Diagnosis | + + | Mediastinal lymphadenopathy Enlargement of lymph nodes | + + documented in this encounter"
--- OUTSIDE RECORDS SUMMARY | ~2019-08-14 | XMS | Encounter Summary ---
Demographics + + + | Address | [address] | | | [place] [address] | + + + | Home Phone | | + + + | Preferred Language | Unknown | + + + | Marital Status | | + + + | Sabianism Affiliation | NON | + + + | Race | White | + + + | Ethnic Group | Not or | + + + Author + + + | Author | [facility] | + + + | Organization | [facility] | + + + | Address | Unknown | + + + | Phone | Unavailable | + + + Support + + +---------+ + | Name | Relationship | Address | Phone | + + +---------+ + | Arabella Isidro | ECON | Unknown | | + + +---------+ + Care Team Providers + +------+ + | Care Merchandise Complaint Adjuster Name | Role | Phone | + +------+ + | Balbir Mercer NP | PCP | | + +------+ + Encounter Details +--------+ + + + + | Date | Type | Department | Care Team | Description | +--------+ + + + + | 01/19/ | Document-Sc | Health Information | Unknown . | | | 2017 | anned | [phone] | | | | | [address] | | | | | | Mailcode: [address] | | | | | | [facility] | | | | | | [place], [place] | | | | | | [address] | | | | | | [phone] | | | +--------+ + + + [...]
--- OUTSIDE RECORDS SUMMARY | ~2019-08-14 | XMS | Encounter Summary ---
Demographics + + + | Address | [address] | | | [place] [address] | + + + | Home Phone | | + + + | Preferred Language | Unknown | + + + | Marital Status | | + + + | Alevism Affiliation | NON | + + + | Race | White | + + + | Ethnic Group | Not or | + + + Author + + + | Author | [facility] | + + + | Organization | [facility] | + + + | Address | Unknown | + + + | Phone | Unavailable | + + + Support + + +---------+ + | Name | Relationship | Address | Phone | + + +---------+ + | Arabella Isidro | ECON | Unknown | | + + +---------+ + Care Team Providers + +------+ + | Care Master Of Ceremonies Name | Role | Phone | + [...] | | | [address] | [place], [place] | | | | | Rd Mail[address]: [address] | [address] | | | | | Physician's | [phone] | | | | | [place] | | | | | | [place] [address] | | | | | | [phone] | | | +--------+ + + + [...]
--- OUTSIDE RECORDS SUMMARY | ~2019-08-14 | XMS | Encounter Summary ---
Demographics + + + | Address | [address] | | | [place] [address] | + + + | Home Phone | | + + + | Preferred Language | Unknown | + + + | Marital Status | | + + + | Spiritism Affiliation | NON | + + + [...] Team Providers + +------+ + | Care Watch Parts Inspector Name | Role | Phone | + +------+ + | Balbir Mercer NP | PCP | | + +------+ + Encounter Details +--------+ + + + + | Date | Type | Department | Care Team | Description | +--------+ + + + + | 01/26/ | Document-Sc | Health Information | Unknown . | | | 2017 | anned | Services [id number] | | | | | | [address] | | | | | | Mailcode: [address] | | | | | | [facility] | | | | | | [place], [place] | | | | | | [address] | | | | | | [phone] | | | +--------+ + + + [...]
--- OUTSIDE RECORDS SUMMARY | ~2019-08-14 | XMS | Encounter Summary ---
Demographics + + + | Address | [address] | | | [place] [address] | + + + | Home Phone [...] Team Providers + +------+ + | Care Safety Companion Name | Role | Phone | + [...] 04/14/ | Documentati | Cardiothoracic | Orion Medrnao, | Thoracic Oncology | | 2017 | on | [facility] [address] | [address] | [facility] | | | | [address] | [place] | | | | | [address]: [address] | [place], [place] | | | | | Physician's | [address] | | | | | [place], | [phone] | | | | | [place] [address] | | | | | | [phone] | | | +--------+ + + + [...]
--- OUTSIDE RECORDS SUMMARY | ~2019-08-14 | XMS | Encounter Summary ---
Demographics + + + | Address | [address] | | | [place] [address] | + + + | Home Phone | | + + + | Preferred Language | Unknown | + + + | Marital Status | | + + + | Presybeterian Affiliation | NON | + + + | Race | White | + + + | Ethnic Group | Not or | + + + Author + + + | Author | [facility] | + + + | Organization | [facility] | + + + | Address | Unknown | + + + | Phone | Unavailable | + + + Support + + +---------+ + | Name | Relationship | Address | Phone | + + +---------+ + | Arabella Isidro | ECON | Unknown | | + + +---------+ + Care Team Providers + +------+ + | Care Installment Dealer Name | Role | Phone | + +------+ + | Balbir Vital NP | PCP | | + +------+ + Reason for Visit + + + | Reason | Comments | + + + | New patient | | | consultation | | + + + Consultation (Routine) +--------+--------+ + + + + | Status | Reason | Specialty | Diagnoses / | Referred By | Referred To | | | | | Procedures | Contact | Contact | +--------+--------+ + + + + | Closed | | Thoracic | Diagnoses | Sylvie | Mildred | | | | Surgery | | Balbir Buckley NP | MD Augie | | | | | nery/domingo | ALEXUS | [address] [facility] | | | | | tinal | [facility] | [facility] | | | | | lymphadenopa | CARE CLINIC | [address] [place], | | | | | thy | [address] | [place] | | | | | | [address] | [address] | | | | | | [place], | Phone: | | | | | | [place] [address] | [phone] | | | | | | Phone: | Fax: | | | | | | [phone] | [phone] | | | | | | Fax: | | | | | | | [phone] | | +--------+--------+ + + + + Encounter Details +--------+---------+ + + + | Date | Type | Department | Care Team | Description | +--------+---------+ + + + | 03/10/ | Office | Cardiothoracic | Augie Levy MD | Mediastinal | | 2017 | Visit | [facility] [address] | [address] | lymphadenopathy | | | | [facility] | [facility] [address] | (Primary Dx) | | | | Rd [address]: [address] | [place], [place] | | | | | Physician's | [address] | | | | | Fabian [place], | [phone] | | | | | [place] [address] | | | | | | [phone] | | | +--------+---------+ + + + Social History [...] + + + | Blood Pressure | 114/72 | 03/10/2017 2:57 PM | | | | | PDT | | + + + + + | Pulse | 64 | 03/10/2017 2:57 PM | | | | | PDT | | + + + + + | Temperature | - | - | | + + + + + | Respiratory Rate | 15 | 03/10/2017 2:57 PM | | | | | PDT | | + + + + + | Oxygen Saturation | 100% | 03/10/2017 2:57 PM | | | | | PDT | | + + + + + | Inhaled Oxygen | - | - | | | Concentration | | | | + + + + + | Weight | 113.9 kg (251 lb) | 03/10/2017 2:57 PM | | | | | PDT | | + + + + + | Height | 157.5 cm (5' 2") | 03/10/2017 2:57 PM | | | | | PDT | | + + + + + | Body Mass Index | 45.91 | 03/10/2017 2:57 PM | | | | | PDT | | + + + + + documented in this encounter Progress Notes Augie Levy MD - 03/10/2017 2:00 PM PDT Thoracic Surgery Faculty Patient Name: Dipak Amaro Date of : 1985 [facility] I personally reviewed the patient's CT Chest 01/19/2017. I personally interviewed the patient, performed wilson elements of the physical examination, a nd personally formulated the assessment and plan with the resident. Please see Ayan Barry' s note for details of this encounter. I spent 60 minutes with Ms. Amaro. I spent greater than 50% of this time counseling her a nd coordinating her care including discussion of the listed items. 31 yo with chest pain. R/o coronary source with angiogram. Found to have mediastinal patria opathy. Imp: Pathologically enlarged lymph nodes in 7, 4R, 4L position. Also right hilar. Differ ential includes sarcoid, fungal, lymphoma. Recommend cervical mediastinoscopy and EBUS. Di scussed risks, benefits, alternatives. She wishes to proceed. Surgery scheduled for March 18 Augie Levy M.D., FACS, FACCP cream dipper Section of General Thoracic Surgery Division of Cardiothoracic Surgery iAyan hathaway MD - 2:00 PM PDTGeneral Thoracic Surgery Consult Date of Service: 03/10/2017 Referring Provider: Balbir Vital NP [facility] [address] [place] [address], [place] [address] Primary Care Physician: Balbir Vital NP [facility] [address] [place] [address] [place] [address] Care Team: BALBIR VITAL NP Chief Complaint: Mediastinal Lymphadenopathy History of Present Illness: Ms. Dipak Amaro is a 31 year old female who presented on 01/19/2017 with new onset ches t tightness and pain. She was awoken from sleep with this new symptoms and due to its persis tent ultimately presented to her local ED. She was subsequently found to have an elevated tr oponin to 8.3. She was subsequently taken for cardiac catheterization however no obstructive lesion was identified. She was subsequently evaluated via CTA Chest which revealed signific ant mediastinal lymphadenopathy. On retrospective review their was a suspicion of a johanna sed distal diagonal branch, although I cannot find this in the actual report. An Echo on 01/20 was without identifiable valvular or functional pathology. She does report recurrent intermittent chest pain, tightness, shortness of breath. She does not associate these symptoms with any inciting factors. She does have an albuterol inhaler for her history of asthma although reports that this is only required every 1-3 months. She is referred to Thoracic Surgery clinic for evaluation and definitive diagnosis via medi astinoscopy and EBUS. Medications: albuterol 90 mcg/actuation inhalation HFA aerosol inhaler, Inhale by mouth. aspirin EC 81 mg oral tablet,delayed release (DR/EC), Take one tablet daily atenolol 25 mg oral tablet, Take by mouth. atorvastatin 40 mg oral tablet, Take by mouth. gabapentin 300 mg oral capsule, Take by mouth. metFORMIN 500 mg oral tablet, Take by mouth. MULTIVITAMIN ORAL, Take by mouth. nitroglycerin 0.4 mg sublingual tablet, sublingual, Place under tongue. Allergies: The patient has No Known Allergies.. Past Medical History: PCOS Asthma Morbid Obesity Past Surgical History: Tubal Ligation Family History: Non-contributory Social History: Quit smoking 6 years ago. History of approximately 10 pack years. Review of Systems: 13 pt ROS was completed and was negative except as per HPI. Physical Exam: BP 114/72 | Pulse 64 | RR 15 | Ht 1.575 m (5' 2") | Wt 113.9 kg (251 lb) | SpO2 100% | BMI 45.91 kg/(m^2) Gen: Sitting in chair; NAD Neuro: AOX3 Psych: Pleasant, conversant Pulm: mild bilateral expiratory wheezes CV: regular rate and rhythm, no MRG GI/: S/NT/ND; no hepatosplenomegaly Endo: Warm, dry; no diaphoresis Vascular: +2 pulses in all extremities; no C/C/E Integumentary: Warm; dry; no bruising, ecchymosis Studies: Personal review by myself and Dr. Levy of the patient's Chest CTA from OSH on 01/19/2017 reveals significant central mediastinal lymphadenopathy with some extension overlying segmen vince bronchi. No other appreciable intrathoracic masses or fluid collections. Assessment: In summary, Ms. Amaro is a 31 year old female who presents with idiopathic mediastinal lym phadenopathy with intermittent paroxysmal chest pain. The patient and I discussed the potential risks, benefits, and alternatives of mediastinosc opy and possible endobronchial ultrasound with biopsy for definitive diagnosis in detail. Maximino Amaro would like to proceed with this. Plan: We will be obtaining some routine preoperative tests today. These include: Routine pre operative laboratory studies: BMP, CBC, INR. If these are favorable, we plan on proceeding with surgery on March 18. Informed consent performed Medications to be held the day prior to surgery: Metformin Can continue beta errol and aspirin. Operative scheduling data: Lateral position: supine Estimated time: 2 hours Estimated blood loss: minimal Epidural catheter requested?: no Special requests: none Admission status: outpatient I spent 30 minutes with Ms. Amaro. Greater than 50% of this time was spent counseling her and coordinating her care. Ayan Barry MD [facility] Department of Surgery Pager: [phone] documented in this enco unter Plan of Treatment Not on filedocumented as of this encounter Results BASIC METABOLIC SET (NA, K, CL, TCO2, [...] | | | LABORATORY | | | SURINAMESE | | | SERVICES, | | | [...] Interpretive Information: <60 mL/min/1.73 sq m | ANAMARIA, CORE | | Chronic Kidney Disease <15 [...] | + + + + + | [facility] | [address] | [place] [address] | | | AMADOU CON[address] | [address] [...] mech. valves (2.5 - 3.5) INR | ANAMARIA, AMADOU | + + + + + + + + | Performing | Address | City/State/Zipcode | Phone Number | | Organization | | | | + + + + + | [facility] | [address] | [place] [address] | | | AMADOU CONRAD | [address] | | | + + + + + documented in this encounter Visit Diagnoses + + | Diagnosis | + + | Mediastinal lymphadenopathy - Primary Enlargement of lymph nodes | + + documented in this encounter
--- OUTSIDE RECORDS SUMMARY | ~2019-08-14 | XMS | Encounter Summary ---
Demographics + + + | Address | [address] | | | [place] [address] | + + + | Home Phone | | + + + | Preferred Language | Unknown | + + + | Marital Status | | + + + | Jew Affiliation | NON | + + + | Race | White | + + + | Ethnic Group | Not or | + + + Author + + + | Author | [facility] | + + + | Organization | [facility] | + + + | Address | Unknown | + + + | Phone | Unavailable | + + + Support + + +---------+ + | Name | Relationship | Address | Phone | + + +---------+ + | Arabella Isidro | ECON | Unknown | | + + +---------+ + Care Team Providers + +------+ + | Care Electrical Instrument Maker Name | Role | Phone | [...] | | PULMONARY | Rd | Rd [place], | | | | | | [place], [place] | [place] | | | | | | [address] | [address] | | | | | | Phone: | Phone: | | | | | | [phone] | [phone] | | | | | | Fax: | Fax: | | | | | | [phone] | [phone] | +--------+--------+ + + + + Encounter Details +--------+ + + + + | Date | Type | Department | Care Team | Description | +--------+ + + + + | 03/18/ | Sales And Service Consultant | Cardiothoracic | NelsonNataliia, | Sarcoid (Primary Dx) | | 2017 | | [facility] [address] | [place] [address] | | | | | [address] [facility] | [address] | | | | | Rd Mail[address]: [address] | [place], [place] | | | | | Physician's | [address] | | | | | [place], | [phone] | | | | | [place] [address] | | | | | | [phone] | | | +--------+ + + + [...]
--- OUTSIDE RECORDS SUMMARY | ~2019-08-14 | XMS | Encounter Summary ---
Demographics + + + | Address | [address] | | | [place] [address] | + + + | Home Phone | | + + + | Preferred Language | Unknown | + + + | Marital Status | | + + + | Mormonism Affiliation | NON | + + + | Race | White | + + + | Ethnic Group | Not or | + + + Author + + + | Author | [facility] | + + + | Organization | [facility] | + + + | Address | Unknown | + + + | Phone | Unavailable | + + + Support + + +---------+ + | Name | Relationship | Address | Phone | + + +---------+ + | Arabella Isidro | ECON | Unknown | | + + +---------+ + Care Team Providers + +------+ + | Care Bulk Sausage Casing Tier Off Name | Role | Phone | + [...] | | | 2016 | Event | [facility] | [address] | | | | | Admitting Desk | [address] | | | | | Located on the | [place], [place] | | | | | floor [address] | [address] | | | | | [facility] [address] | [phone] | | | | | [place], [place] | | | | | | [address] | Luca Sutton MD | | | | | | [address] | | | | | | [facility] [address] | | | | | | [place], [place] | | | | | | [address] | | | | | | [phone] | | | | | | | [...] [address] | Luca Sutton MD | Vanessa Flowers, | | Line | | | RN [...]
--- OUTSIDE RECORDS SUMMARY | ~2019-08-14 | XMS | Encounter Summary ---
Demographics + + + | Address | [address] | | | [place] [address] | + + + | Home Phone | | + + + | Preferred Language | Unknown | + + + | Marital Status | | + + + | Sikh Affiliation | NON | + + + | Race | White | + + + | Ethnic Group | Not or | + + + Author + + + | Author | [facility] | + + + | Organization | [facility] | + + + | Address | Unknown | + + + | Phone | Unavailable | + + + Support + + +---------+ + | Name | Relationship | Address | Phone | + + +---------+ + | Arabella Isidro | ECON | Unknown | | + + +---------+ + Care Team Providers + +------+ + | Care Siphon Operator Name | Role | Phone | [...] | | | | | Procedures | [address] | [address] | | | | | CONSULT TO | Macy | Dina | | | | | OPHTHALMOLOG | [place], [place] | Gia | | | | | Y | [address] | [place], [place] | | | | | | Phone: | [address] | | | | | | [phone] | Phone: | | | | | | Fax: | [phone] | | | | | | [phone] | Fax: | | | | | | | [phone] | +--------+--------+ + + + + Encounter Details +--------+ + + + + | Date | Type | Department | Care Team | Description | +--------+ + + + + | 06/18/ | Sliver Chopper | Cardiothoracic | Quinn Alba NP | Sarcoid (Primary Dx) | | 2017 | | [facility] [address] | [address] | | | | | [address] [facility] | [place], [place] | | | | | Rd [address]: [address] | [address] | | | | | Physician's | [phone] | | | | | [place], | | | | | | [place] [address] | | | | | | [phone] | | | +--------+ + + + [...]
--- OUTSIDE RECORDS SUMMARY | ~2019-08-14 | XMS | Encounter Summary ---
Demographics + + + | Address | [address] | | | [place] [address] | + + + | Home Phone | | + + + | Preferred Language | Unknown | + + + | Marital Status | | + + + | Nondenominational Affiliation | NON | + + + [...] Team Providers + +------+ + | Care Shirring Tender Name | Role | Phone | + +------+ + | Balbir Mercer NP | PCP | | + +------+ + Encounter Details +--------+ + + + + | Date | Type | Department | Care Team | Description | +--------+ + + + + | 05/09/ | MyChart | Cardiothoracic | Nataliia Nelson, | RE: er / hospital | | 2017 | Encounter | [facility] [address] | [place] [address] | stay | | | | [address] | [address] | | | | | [address]: [address] | [place], [place] | | | | | Physician's | [address] | | | | | [place], | [phone] | | | | | [place] [address] | | | | | | [phone] | | | +--------+ + + + [...]
--- OUTSIDE RECORDS SUMMARY | ~2019-08-14 | XMS | Encounter Summary ---
Demographics + + + | Address | [address] | | | [place] [address] | + + + | Home Phone | | + + + | Preferred Language | Unknown | + + + | Marital Status | | + + + | Denominational Affiliation | NON | + + + | Race | White | + + + | Ethnic Group | Not or | + + + Author + + + | Author | [facility] | + + + | Organization | [facility] | + + + | Address | Unknown | + + + | Phone | Unavailable | + + + Support + + +---------+ + | Name | Relationship | Address | Phone | + + +---------+ + | Arabella Isidro | ECON | Unknown | | + + +---------+ + Care Team Providers + +------+ + | Care Rn Admission Name | Role | Phone | + [...] + + + | Closed | | Medical | Diagnoses | Parth | Darrel Gen | | | | Genetics | Sarcoid | ROSIE Ball | Genetics Ppv | | | | | Procedures | [address] | [address] | | | | | CONSULT TO | Ave | [address] | | | | | OPHTHALMOLOG | [place] | [place], | | | | | Y | [address] | [place] | | | | | | Phone: | [address] | | | | | | [phone] | Phone: | | | | | | Fax: | [phone] | | | | | | [phone] | Fax: | | | | | | | [phone] | +--------+--------+ + + + + Consultation (Routine) + +--------+ + + + + | Status | Reason | Specialty | Diagnoses / | Referred By | Referred To | | | | | Procedures | Contact | Contact | + +--------+ + + + + | Canceled | | Pulmonary | Diagnoses | Parth, | Pul Faculty | | | | Disease | Sarcoid | ROSIE Ball | [address] | | | | | Procedures | [address] | [address] | | | | | CONSULT TO | Ave | [address] | | | | | PULMONARY | [facility] [place] | Rd Mailcode: | | | | | | [address] | [id number] | | | | | | Phone: | Physician's | | | | | | [phone] | [address] | | | | | | Fax: | [place], [place] | | | | | | [phone] | [address] | | | | | | | Phone: | | | | | | | [phone] | | | | | | | Fax: | | | | | | | [phone] | + +--------+ + + + + Encounter Details +--------+ + + + + | Date | Type | Department | Care Team | Description | +--------+ + + + + | 04/04/ | Employment Recruiter | Cardiothoracic | Quinn Alba, ROSIE | Sarcoid (Primary Dx) | | 2017 | | [facility] [address] | [address] | | | | | [address] [facility] | [place], [place] | | | | | [address]: [address] | [address] | | | | | Physician's | [phone] | | | | | [place], | | | | | | [place] [address] | | | | | | [phone] | | | +--------+ + + + [...]
--- OUTSIDE RECORDS SUMMARY | ~2019-08-14 | XMS | Encounter Summary ---
Demographics + + + | Address | [address] | | | [place] [address] | + + + | Home Phone | | + + + | Preferred Language | Unknown | + + + | Marital Status | | + + + | Worship Affiliation | NON | + + + [...] Providers + +------+ + | Care Senior Ui Software Engineer Name | Role | Phone | [...] | ENDOBRONCHIAL | | 2017 | | [facility] | [address] [facility] | ULTRASOUND AND | | | | Admitting Desk | [address] | BIOPSY; | | | | Located on the 9 | [place], [place] | MEDIASTINOSCOPY; | | | | floor [address] [facility] | [address] | SPECIMEN RESULTS | | | | [address] | [phone] | READ | | | | [place], [place] | | INTRAOPERATIVELY BY | | | | [address] | | PATHOLOGIST ; | | | [...] + +--------+ + + + | NON TOBACCO GROWER CYTOLOGY | Routin | 03/18/2017 | | [...] 03/18/2017 Attending | | Surgeon:Augie Levy MD Marketing Analyst(s):RAYSA Reyes | | Preoperative Diagnosis: Mediastinal adenopathy.Postoperative [...] | | 03/18/2017 09:50:17DT: 03/18/2017 11:17:46Job #: [id number] | | | | | |Augie Levy MD | |PS/MODL | | | | | | /[id number] | + + X-RAY PORTABLE CHEST 1 VIEW (03/18/2017 11:24 AM PDT) + + | Specimen | + + | | + + + + + | Narrative | Performed At | + + + | EXAM: GA CHEST 1 VIEW 03/18/17 10:42:35 HISTORY: Mediastinal [...] Interface - 03/18/2017 1:05 PM PDT EXAM: GA CHEST 1 | | VIEW 03/18/17 10:42:35 [...] [facility] | [address] | [place] [address] | | | SERVICES, AMADOU | [address] [...] + | [facility] - | [address] | [place] [address] | | | [place] | | | [...] detected | AIRPORT - | | | [place] | + + + + + + + + | Performing | Address | City/State/Zipcode | Phone Number | | Organization | | | | + + + + + | [facility] - | [address] | [place] [address] | | | [place] | | | | + + + [...] + | [facility] - | [address] | [place] [address] | | | [facility] | | | | + + + [...] + | [facility] - | [address] | [place] [address] | | | [place] | | | | + + + [...] detected | AIRPORT - | | | [place] | + + + + + + + + | Performing | Address | City/State/Zipcode | Phone Number | | Organization | | | | + + + + + | [facility] | [address] | [place] [address] | | | [place] | | | [...] + | [facility] - | [address] | [place] [address] | | | [place] | | | [...] LABORATORY | [address] | [place] [address] | | | ANAMARIA, CORE | PARK [...] [facility] | [address] | [place], [place] | | | DIRK POINT OF CARE | [address] | [address] | | | TESTS | | | [...] | + + + + + | [facility] | [address] | [place] [address] | | | SERVICES, | [address] [...] | + + + + + | [facility] | [address] | [place] [address] | | | ANAMARIA | [address] [...] obtained. | | + + + NON TOBACCO GROWER CYTOLOGY (03/18/2017) + + + + + + | Component | Value | Ref Range | Performed | Pathologist | | | | | At | Signature | + + + + + + | NON-TOBACCO GROWER | SOURCE OF SPECIMEN:A | | [facility] [...] Wiggins/ | | | | | | Golf Sales Manager | | | | | | (ASCP)Yusuf [...] | + + + + + | [facility] DEPARTMENT OF | [address] [facility] | [place] [address] | | | PATHOLOGY | [address] | | | + + + + + SURGICAL PATHOLOGY (03/18/2017) + + + + + + | Component | Value | Ref Range | Performed | Pathologist | | | | | At | Signature | + + + + + + | SURGICAL | SOURCE OF SPECIMEN:A | | [facility] | | | PATHOLOGY | [...] CD10 | | | | | | [id number] CD22 CD23 CD25 | | | | | | CD34 CD38 CD45 | | | | | | [id number] sKappa | | | | | | sLambda | | | | | | Specimen D: Mature | | | | | | lymphocytes comprise | | | | | | 100% of total cells and | | | | | | % T cells and | | | | [...] | | | | the CD3, CD20, PW46tpi | | | | | | CD138 [...] | + + + + + | [facility] | [address] | [place] [address] | | | PATHOLOGY | [address] [...]
--- OUTSIDE RECORDS SUMMARY | ~2019-08-14 | XMS | Encounter Summary ---
Demographics + + + | Address | [address] | | | [place] [address] | + + + | Home Phone | | + + + | Preferred Language | Unknown | + + + | Marital Status | | + + + | Judaism Affiliation | 1013 | + + + | Race | Unknown | + + + | Ethnic Group | Unknown | + + + Author + + + | Author | [facility] (Historical as of | | | 06-05-19) | + + + | Organization | [facility] (Historical as of | | | 06-05-19) [...] Team Providers + +------+ + | Care Taxation Consultant Name | Role | Phone | + +------+ + | Balbir Mercer | PCP | | + +------+ + Encounter Details +--------+ + + + + | Date | Type | Department | Care Team | Description | +--------+ + + + + | 05/24/ | Procedure | [facility] | | | | 2019 | Pass | [facility] | | | | | | [place] [address] [facility] | | | | | | [address] [address] | | | | | | [phone] | | | +--------+ + + + [...]
--- OUTSIDE RECORDS SUMMARY | ~2019-08-14 | XMS | Clinical Summary ---
Demographics + + + | Address | [address] | | | [place] [address] | + + + | Home Phone | | + + + | Preferred Language | Unknown | + + + | Marital Status | | + + + | Cheondoism Affiliation | 1013 | + + + | Race | Unknown | + + + | Ethnic Group | Unknown | + + + Author + + + | Author | [facility] | | | and [place] | + + + | Organization | [facility] | | [...] [place], [place] | | | | | [address] | | + + + + + | Arabella Isidro | ECON | Unknown | | + + + + + | Fabio Amaro | ECON | Unknown | | + + + + + Care Team Providers + +------+ + | Care Children'S Attendant Name | Role | Phone | + +------+ + | Mark Bartlett | PCP | | + +------+ + Allergies No Known Allergies Medications + + + +---------+------+------+-------+ | Medication | Sig | Dispensed | Refills | Star | End | Statu | | | | | | t | Date | s | | | | | | Date | | | + + + +---------+------+------+-------+ | metFORMIN | Take 500 mg by mouth | | 0 | | | Activ | | (GLUCOPHAGE) 500 mg | daily (with | | | | | e | | tablet | breakfast). | | | | | | + + + +---------+------+------+-------+ | gabapentin | Take 300 mg by mouth | | 0 | | | Activ | | (NEURONTIN) 300 mg | nightly. | | | | | e | | capsule | | | | | | | + + + +---------+------+------+-------+ | Multiple | Take 1 tablet by | | 0 | | | Activ | | Vitamins-Minerals | mouth Daily. | | | | | e | | (MULTIVITAMIN ADULT | | | | | | | | PO) | | | | | | | + + + +---------+------+------+-------+ | albuterol | Inhale 2 puffs into | | 0 | | | Activ | | (VENTOLIN HFA) 90 | the lungs every 4 | | | | | e | | mcg/puff inhaler | hours as needed for | | | | | | | | Wheezing. | | | | | | + + + +---------+------+------+-------+ | atorvaSTATin | Take 1 tablet by | 30 | 1 | 04/0 | | Activ | | (LIPITOR) 40 mg | mouth nightly. | tablet | | 4/20 | | e | | tablet | | | | 17 | | | + + + +---------+------+------+-------+ | nitroglycerin | Place 1 tablet under [...] | | + + + +---------+------+------+-------+ | clopidogrel | take 1 tablet by | | 0 | 05/1 | | Activ | | (PLAVIX) 75 mg | mouth once daily | | | 0/20 | | e | | tablet | | | | 18 | | | + + + +---------+------+------+-------+ | metoprolol | Take 50 mg by mouth | | 0 | | | Activ | | tartrate (LOPRESSOR) | Daily. | | | | | e | | 50 mg tablet | | | | | | | + + + +---------+------+------+-------+ | predniSONE | Please use one tab | 7 | 0 | 08/1 | | Activ | | (DELTASONE) 5 mg | every other day for | tablet | | 7/20 | | e | | tabletIndications: | 7 days then stop | | | 18 | | | | Sarcoid | prednisone. | | | | | | + + + +---------+------+------+-------+ | aspirin 81 mg | Take 81 mg by mouth | | 0 | | | Activ | | chewable tablet | daily (with | | | | | e | | | breakfast). | | | | | | + + + +---------+------+------+-------+ | isosorbide | Take 1 tablet by | | 0 | 04/19 | 04/19 | Activ | | mononitrate (IMDUR) | mouth Daily. | | | 20 | 0/20 | e | | 30 mg ER tablet | | | | 19 | 20 | | + + + +---------+------+------+-------+ | metoprolol | Take 1 tablet by | | 0 | 04/2 | 04/2 | Activ | | succinate | mouth Daily. | | | /20 | /20 | e | | (TOPROL-XL) 50 mg 24 | | | | 19 | 20 | | | hr tablet | | | | | | | + + + +---------+------+------+-------+ | metoprolol | | | 0 | 09/1 | | Activ | | succinate | | | | 20 | | e | | (TOPROL-XL) 50 mg 24 | | | | 18 | | | | hr tablet | | | | | | | + + + +---------+------+------+-------+ | traMADol (ULTRAM) | take 1 to 2 tablets | | 0 | 08/2 | | Activ | | 50 mg tablet | by mouth every 6 | | | 6/20 | | e | | | hours if needed for | | | 18 | | | | | pain | | | | | | + + + +---------+------+------+-------+ | albuterol | | | 0 | 04/1 | | Activ | | (VENTOLIN HFA) 90 | | | | /20 | | e | | mcg/puff inhaler | | | | 18 | | | + + + +---------+------+------+-------+ | atorvaSTATin | | | 0 | 05/3 | | Activ | | (LIPITOR) 40 mg | | | | 0/20 | | e | | tablet | | | | 18 | | | + + + +---------+------+------+-------+ | clopidogrel | Take 75 mg by mouth | | 0 | 06/1 | | Activ | | (PLAVIX) 75 mg | Daily. | | | 0/20 | | e | | tablet | | | | 18 | | | + + + +---------+------+------+-------+ | gabapentin | | | 0 | 06/0 | | Activ | | (NEURONTIN) 300 mg | | | | 6/20 | | e | | capsule | | | | 18 | | | + + + +---------+------+------+-------+ | metFORMIN | | | 0 | 05/3 | | Activ | | (GLUCOPHAGE) 500 mg | | | | 0/20 | | e | | tablet | | | | 18 | | | + + + +---------+------+------+-------+ | gabapentin | Take 1 capsule by | | 0 | 05/21 | | Activ | | (NEURONTIN) 300 mg | mouth 2 times daily. | | | 220 | | e | | capsule | | | | 18 | | | + + + +---------+------+------+-------+ [...] Morbid obesity with BMI of 40.0-44.9, adult | 01/19/2017 | + + + | [...] + | 05/30/ | Orders Only | | Provider, | | | 2019 | | | Nader, | | +--------+ + + + + from Last 3 Months Immunizations + + + + | Name | Dates Previously Given | Next Due | + + + + | INFLUENZA PF 4Y OR | 07/29/2017, 07/29/2016 | | | >,QUAD DERIVED FROM | | | | TISS-CULT | | | + + + + | INFLUENZA PF | 07/29/2017, 07/29/2016 | | | TRIVALENT(PED/ADOL/A | | | | DULT), PSKT | | | + + + + | MMR, 2 DOSE | 11/07/1999 | | | (PED/ADULT) | | | + + + + Family History + + +---------+ + | Medical History | Relation | Name | Comments | + + +---------+ + | Atrial fibrillation | Brother | 1/2 | | + + +---------+ + | Hypertension | Brother | 1/2 | | + + +---------+ + | Asthma | Father | bill | | + + +---------+ + | Coronary artery | Father | bill | [place] | | disease | | | | [...] | + + +---------+ + | Heart attack | Father | bill | | + + +---------+ + | High cholesterol | Father | bill | | + + +---------+ + | Hypertension | Father | bill | | + + +---------+ + | Sudden | Father | bill | | + [...] | Cancer | Mother | Arabella | breast cancer | | | | Isidro | | + + +---------+ + | Heart attack | Mother | Arabella | | | | | Isidro | | + + +---------+ + | Hypertension | Mother | Arabella | | | | | Isidro | | + + +---------+ + + +---------+ + + | Relation | Name | Status | Comments | + +---------+ + + | Brother | 1/2 | Alive | | + +---------+ + + | Father | bill | | | + +---------+ + + | Father | bill | Alive | | + +---------+ + + | Father | bill | | | + +---------+ + + | Maternal Grandmother | | | | + +---------+ + + | Mother | Arabella | | | | | Isidro | | | + +---------+ + + | Mother | Arabella | Alive | | | | Isidro | | | + +---------+ + + | Mother | Arabella | | | [...] | Blood Pressure | 117/78 | 05/24/2019 1618 PDT | + + + + | Pulse | 60 | 05/24/20191617 PDT | + + + + | Temperature | 36.6 C (97.8 F) | 05/24/20191617 PDT | + + + + | Respiratory Rate | 22 | 05/24/20191617 PDT | + + + + | Oxygen Saturation | 93% | 06/05/20181600 PDT | + + + + | Inhaled Oxygen | - | - | | Concentration | | | + + + + | Weight | 127.3 kg (280 lb | 05/24/20191617 PDT | | | 10.4 oz) | | + + + + | Height | 157.5 cm (5' 2") | 05/24/20191617 PDT | + + + + | Body Mass Index | 51.33 | 05/24/20191617 PDT | + + + + Plan [...] + | Vaccine: Influenza | | 07/29/2017, 07/29/2017, | | | (#1) | 9 | 07/29/2016, Additional history | | | | | exists | | + + + + + Procedures + +--------+ + + + | Procedure Name | Priori | Date/Time | Associated Diagnosis | Comments | | | ty | | | | + +--------+ + + + | CV CARDIAC PROCEDURE | Routin | 05/24/2019 | | Results for this | | | e | 11:14 PDT | | procedure are in the | | | | | | results section. | + +--------+ + + + | CV VASCULAR | Routin | 05/24/2019 | | Results for this | | PROCEDURE | e | 10:38 PDT | | procedure are in the | | | | | | results section. | + +--------+ + + + | CBC NO DIFFERENTIAL | Routin | 05/24/2019 | | Results for this | | | e | 9:03 PDT | | procedure are in the | | | | | | results section. | + +--------+ + + + | BASIC METABOLIC | Routin | 05/24/2019 | | Results for this | | PANEL | e | 9:03 PDT | | procedure are in the | | | | | | results section. | + +--------+ + + + from Last 3 Months Results CV CARDIAC PROCEDURE (05/24/2019 11:14 PDT) + + | Specimen | + + | | + + + + + | Narrative | Performed At | + + + | | | | | | | CORONARY ANGIOGRAM REPORT DATE OF [...] of pulmonary sarcoidosis and the history of [place] | | | times 2; one treated in [place] and more recently in 2018, [place] | | | treated at [facility]. During that admission, she was | [...] | visualized under ultrasound guidance and a 5-Finnish sidearm sheath was | | | inserted into the right radial artery. An antispasmodic solution | | | of 5000 units of heparin and 200 mcg of nitroglycerin were given | | | intraarterially to prevent spasm. A 5-Finnish Tommy catheter was | | | then advanced to the aortic root. The left coronary ostium was | | | selectively cannulated and multiple images in various projections of | | | this vessel were obtained following intracoronary contrast | | | injection. There was noted to be some arterial spasm at this point | | | in the procedure. The 5-Finnish Tommy catheter was then | | | removed. An additional 2000 mcg of nitroglycerin were given | | | intraarterially. A 5-Finnish FR4 catheter was then advanced to the | | | aortic root. The right coronary ostium was selectively cannulated | | | and multiple images in various projections of this vessel were | | | obtained following intracoronary contrast injection. The 5-Finnish | | | FR4 catheter was then [...] Note | + + | Tashi Gill - 07/29/[address] [facility] | | | | CORONARY ANGIOGRAM REPORT [...] of pulmonary sarcoidosis and the history of [place] times | | 2; one treated in [place] and more recently in 2018, [place] treated at | | [facility]. During that admission, she was found [...] was visualized under ultrasound guidance and a 5-Finnish sidearm sheath was | | inserted into the right radial artery. An antispasmodic solution of 5000 | | units of heparin and 200 mcg of nitroglycerin were given intraarterially to | | prevent spasm. A 5-Finnish Tommy catheter was then advanced to the aortic | | root. The left coronary ostium was selectively cannulated and multiple | | images in various projections of this vessel were obtained following | | intracoronary contrast injection. There was noted to be some arterial | | spasm at this point in the procedure. The 5-Finnish Tommy catheter was then | | removed. An additional 2000 mcg of nitroglycerin were given | | intraarterially. A 5-Finnish FR4 catheter was then advanced to the aortic | | root. The right coronary ostium was selectively cannulated and multiple | | images in various projections of this vessel were obtained following | | intracoronary contrast injection. The 5-Finnish FR4 catheter was then | | removed [...] | | | | | + + CV VASCULAR PROCEDURE (05/24/2019 10:38 PDT) + + | Specimen | + + | | + + + + + | Narrative | Performed At | + + + | This Point of Care (POC) ultrasound image has been reviewed and | | | interpreted by the physician identified as the performing physician in | | | the associated interpretation and report. | | + + + + + | Procedure Note | + + | Tashi Gill - 06/25/2019 0926 PDT This Point of Care (POC) ultrasound image | | has been reviewed andinterpreted by the physician identified as the performing physician | | in theassociated interpretation and report. | | | + + CBC no Differential (05/24/2019 9:03 PDT) + + + + + + | Component | Value | Ref Range | Performed | Pathologist | | | | | At | Signature | + + + + + + | WBC | 4.89 | 3.80 - 11.00 | EXTERNAL | | | | | K/uL | LAB | | + + + + + + | RED CELL | 4.43 | 3.70 - 5.10 | EXTERNAL | | | COUNT | | M/uL | LAB | | + + + + + + | Hgb | 13.2 | 11.3 - 15.5 | EXTERNAL | | | | | g/dL | LAB | | + + + + + + | Hematocrit, | 40.1 | 34.0 - 46.0 % | EXTERNAL | | | POC | | | LAB | | + + + + + + | MCV | 90.5 | 80.0 - 100.0 fl | EXTERNAL | | | | | | LAB | | + + + + + + | MCH | 29.7 | 27.0 - 34.0 pg | EXTERNAL | | | | | | LAB | | + + + + + + | MCHC | 32.8 | 32.0 - 35.5 | EXTERNAL | | | | | g/dL | LAB | | + + + + + + | RDW-CV | 43.3 | 37 - 53 fl | EXTERNAL | | | | | | LAB | | + + + + + + | Platelet | 270 | 150 - 400 K/uL | EXTERNAL | | | Count | | | LAB | | | Plasma | | | | | + + + + + + | MPV | 8.2Comment: Testing | fl | EXTERNAL | | | | performed at [facility];[address] | | LAB | | | | [address];[place], [place] | | | | | | [address] | | | | + + + + + + + + | Specimen | + + | | + + + +---------+ + + | Performing | Address | City/State/Zipcode | Phone Number | | Organization | | | | + +---------+ + + | EXTERNAL LAB | | | | + +---------+ + + Basic Metabolic Panel (05/24/2019 9:03 PDT) + + + + + + | Component | Value | Ref Range | Performed | Pathologist | | | | | At | Signature | + + + + + + | Na | 142 | 135 - 145 | EXTERNAL | | | | | mmol/L | LAB | | + + + + + + | K | 4.0 | 3.5 - 4.9 | EXTERNAL | | | | | mmol/L | LAB | | + + + + + + | Cl | 112 (H) | 99 - 109 mmol/L | EXTERNAL | | | | | | LAB | | + + + + + + | CO2 | 26 | 23 - 32 mmol/L | EXTERNAL | | | | | | LAB | | + + + + + + | Anion Gap | 8 | 5 - 20 mmol/L | EXTERNAL | | | | | | LAB | | + + + + + + | Glucose, | 98 | 65 - 99 mg/dL | EXTERNAL | | | Fasting | | | LAB | | + + + + + + | BUN | 7 (L) | 8 - 25 mg/dL | EXTERNAL | | | | | | LAB | | + + + + + + | Creatinine | 0.83 | 0.50 - 1.00 | EXTERNAL | | | | | mg/dL | LAB | | + + + + + + | BUN/Creatin | 8 | | EXTERNAL | | | ine Ratio | | | LAB | | + + + + + + | Calcium | 7.9 (L) | 8.5 - 10.5 | EXTERNAL | | | | | mg/dL | LAB | | + + + + + + | Estimated | >60Comment: GFR <60: | mL/min/1.73m2 | EXTERNAL | | | GFR | CHRONIC KIDNEY DISEASE, | | LAB | | | | IF FOUND OVER A 3 MONTH | | | | | | PERIOD.GFR <15: KIDNEY | | | | | | FAILURE.FOR | | | | | | AMERICANS, MULTIPLY THE | | | | | | CALCULATED GFR BY | | | | | | 1.210.This eGFR is | | | | | | calculated using the | | | | | | MDRD IDMS traceable | | | | | | equation.Testing | | | | | | performed at [facility];[address] | | | | | | [address] [facility];[place], [place] | | | | | | [address] | | | | + + + + + + + + | Specimen | + + | Blood | + + + +---------+ + + | Performing | Address | City/State/Zipcode | Phone Number | | Organization | | | | + +---------+ + + | EXTERNAL LAB | | | | + +---------+ + + from Last 3 Months Insurance + +--------+ +--------+ +---------+--------+ | Payer | Benefi | Subscriber | Effect | Phone | Address | Type | | | t Plan | ID | maldonado | | | | | | / | | Dates | | | | | | Group | | | | | | + +--------+ +--------+ +---------+--------+ | [employer] | [employer] | [id number] | | [phone] | | Medica | | MEDICAID HMO | HEALTH | | 016-Pr | 1 | | id | | | MDCD | | esent | | | | | | [place] | | | | | | + +--------+ +--------+ +---------+--------+ + +--------+ +--------+ + + | Guarantor Name | Accoun | Relation to | Date | Phone | Billing Address | | | t Type | Patient | of | | | | | | | | | | + +--------+ +--------+ + + | Dipak Amaro | Person | Self [birth year] | [address] | | | al/Fam | | 1985 | [phone] | [place] | | | m[place] | | | [place] (Home) | [address] | + +--------+ +--------+ + + | Dipak Amaro | Person | Self | [birth year] | [address] | | | al/Jean | | 1985 | [phone] | [place] | | | mc | | | 7 (Home) | [address] | + +--------+ +--------+ + + Advance Directives Patient has advance care planning documents, and code status on file. For more information, please contact:[facility] [place] [address] + + + + + | Code Status | Date | Date | Comments | | | Activated | Inactivated | | + + + + + | Full Code | 01/20/2017 | 01/21/2017 | | | | 9:14 | 19:09 | | + + + + +
--- OUTSIDE RECORDS SUMMARY | ~2019-08-14 | XMS | Encounter Summary ---
Demographics + + + | Address | [address] | | | [place] [address] | + + + | Home Phone | | + + + | Preferred Language | Unknown | + + + | Marital Status | | + + + | Confucianism Affiliation | NON | + + + [...] Team Providers + +------+ + | Care Technical Customer Support Specialist Name | Role | Phone | [...] | | | nery/domingo | ALEXUS | [address] [facility] | | | | | tinal | [facility] | [facility] | | | | | lymphadenopa | CARE CLINIC | [address] [place], | | | | | thy | [address] | [place] | | | | | [address] | [address] | | | | | | [place], | Phone: | | | | | | [place] [address] | [phone] | | | | | | Phone: | Fax: | | | | | | [phone] | [phone] | | | | | | Fax: | | | | | | | [phone] | | +--------+--------+ + + + + Encounter Details +--------+---------+ + + + | Date | Type | Department | Care Team | Description | +--------+---------+ + + + | 03/10/ | Office | Cardiothoracic | Augie Levy MD | Mediastinal | | 2017 | Visit | Surgery at [facility] [address] | [address] | lymphadenopathy | | | | [facility] | [facility] [address] | (Primary Dx) | | | | Rd Mailcode: [address] | [place], [place] | | | | | Physician's | [address] | | | | | [address] [place], | [phone] | | | | | [place] [address] | | | | | | [phone] | | | +--------+---------+ + + + [...] Name: Dipak Amaro Date of : 1985 [facility] I personally reviewed the patient's CT Chest [...] March 18 Augie [place] M.D., FACS, FACCP med asst Section of General Thoracic Surgery Division of Cardiothoracic Surgery iAyan hathaway MD - 2:00 PM PDTGeneral Thoracic Surgery Consult Date of Service: 03/10/2017 Referring Provider: Balbir Vital NP [facility] [address] [place] [address], [place] [address] Primary Care Physician: Balbir Vital NP [facility] [address] [place] [address] [place] [address] Care Team: BALBIR VITAL NP Chief Complaint: [...] and coordinating her care. Ayan Barry MD [facility] Department of Surgery Pager: [phone] documented in this enco unter Plan of [...] | | | LABORATORY | | | [facility] | | | SERVICES, | | | [...] + + + | [facility] | [address] | [place] [address] | | | [address] | [address] [...] + + + | [facility] | [address] | [place] [address] | | | [address] | [address] | | | + + + + + documented in this encounter Visit Diagnoses + + | Diagnosis | + + | Mediastinal lymphadenopathy - Primary Enlargement of lymph nodes | + + documented in this encounter
--- OUTSIDE RECORDS SUMMARY | ~2019-08-14 | XMS | Clinical Summary ---
Demographics + + + | Address | [address] | | | [place] [address] | + + + | Home Phone | | + + + | Preferred Language | Unknown | + + + | Marital Status | | + + + | Jain Affiliation | NON | + + + [...] | + + +---------+ + | Arabella Iisdro | ECON | Unknown | | + + +---------+ + Care Team Providers + +------+ + | Care Embedder Name | Role | Phone | + +------+ + | Mark Bartlett PA-C | PCP | | + +------+ + Source Comments KAYY is fully live on both [facility] and [facility] InPatient.[facility] Allergies No Known Allergies Medications + + [...] | | | + +--------+ +--------+-------+---------+--------+ | EMBROIDERY OPERATOR MEDICAID | EMBROIDERY OPERATOR | xxxxxxxx | | | | Medica [...] mc | | | 7 (Home) | [address] | + +--------+ +--------+ + + Advance [...]
--- OUTSIDE RECORDS SUMMARY | ~2019-08-14 | XMS | Encounter Summary ---
Demographics + + + | Address | [address] | | | [place] [address] | + + + | Home Phone | | + + + | Preferred Language | Unknown | + + + | Marital Status | | + + + | Faith Affiliation | NON | + + + | Race | White | + + + | Ethnic Group | Not or | + + + Author + + + | Author | [facility] | + + + | Organization | [facility] | + + + | Address | Unknown | + + + | Phone | Unavailable | + + + Support + + +---------+ + | Name | Relationship | Address | Phone | + + +---------+ + | Arabella Isidro | ECON | Unknown | | + + +---------+ + Care Team Providers + +------+ + | Care Nuisance Wildlife Trapper Name | Role | Phone | + +------+ + | Balbir Mercer NP | PCP | | + +------+ + Reason for Visit + + + | Reason | Comments | + + + | Pre-Admission | | + + + Encounter Details +--------+ + + + + | Date | Type | Department | Care Team | Description | +--------+ + + + + | 03/12/ | PreAdmit | Cardiothoracic | Quinn Alba NP | Pre-Admission | | 2017 | Orders | Surgery at [facility] [address] | [address] | | | | | [address] [facility] | [place], [place] | | | | | Rd Mail[address]: [address] | [address] | | | | | Physician's | [phone] | | | | | [place], | | | | | | [place] [address] | | | | | | [phone] | | | +--------+ + + + [...]
--- OUTSIDE RECORDS SUMMARY | ~2019-08-14 | XMS | Encounter Summary ---
Demographics + + + | Address | [address] | | | [place] [address] | + + + | Home Phone [...] Team Providers + +------+ + | Care Dry Can Tender Name | Role | Phone | [...] [address] | | | | | [facility] | [place], [place] | | | | | Rd Mail[address]: [address] | [address] | | | | | Physician's | [phone] | | | | | [place], | | | | | | [place] [address] | | | | | | [phone] | | | +--------+ + + + [...]
--- OUTSIDE RECORDS SUMMARY | ~2019-08-14 | XMS | Encounter Summary ---
Demographics + + + | Address | [address] | | | [place] [address] | + + + | Home Phone | | + + + | Preferred Language | Unknown | + + + | Marital Status | | + + + | Scientologist Affiliation | 1013 | + + + | Race | Unknown | + + + | Ethnic Group | Unknown | + + + Author + + + | Author | [facility] | | | and [place] | + + + | Organization | [facility] | | [...] [place], [place] | | | | | [address] | | + + + + + | Arabella Isidro | ECON | Unknown | | + + + + + | Fabio Amaro | ECON | Unknown | | + + + + + Care Team Providers + +------+ + | Care Feed Crusher Operator Name | Role | Phone | + +------+ + | Mark Bartlett | PCP | | + +------+ + Encounter Details +--------+ + + + + | Date | Type | Department | Care Team | Description | +--------+ + + + + | 05/30/ | Orders Only | [facility] | Provider, | | | 2019 | | SYSTEM GENERIC OP | [address] | | | | | [address] | [address] | | | | | [address] [place], [place] | [place] [address] | | | | | [address] | | | | | | [phone] | | | +--------+ + + + [...]
--- OUTSIDE RECORDS SUMMARY | ~2019-08-14 | XMS | Encounter Summary ---
Demographics + + + | Address | [address] | | | [place] [address] | + + + | Home Phone | | + + + | Preferred Language | Unknown | + + + | Marital Status | | + + + | Restoration Affiliation | NON | + + + | Race | White | + + + | Ethnic Group | Not or | + + + Author + + + | Author | [facility] | + + + | Organization | [facility] | + + + | Address | Unknown | + + + | Phone | Unavailable | + + + Support + + +---------+ + | Name | Relationship | Address | Phone | + + +---------+ + | Arabella Isidro | ECON | Unknown | | + + +---------+ + Care Team Providers + +------+ + | Care Translator Deaf Name | Role | Phone | + [...] | Procedures | [address] | [address] | | | | | CONSULT TO | Ave | [address] | | | | | OPHTHALMOLOG | [place] | [place], | | | | | Y | [address] | [place] | | | | | | Phone: | [phone] | | | | | | [phone] | Phone: | | | | | | Fax: | [phone] | | | | | | [phone] | Fax: | | | | | | | [phone] | +--------+--------+ + + + + Consultation [...] | | | | | PULMONARY | [facility] [place] | Rd Mailcode: | | | | | | [address] | [facility] | | | | | | Phone: | Physician's | | | | | | [phone] | [address] | | | | | | Fax: | [place], [place] | | | | | | [phone] | [address] | | | | | | | Phone: | | | | | | | [phone] | | | | | | | Fax: | | | | | | | [phone] | + +--------+ + + + + Encounter Details +--------+ + + + + | Date | Type | Department | Care Team | Description | +--------+ + + + + | 04/04/ | Production Estimator | Cardiothoracic | Quinn Alba, ROSIE | Sarcoid (Primary Dx) | | 2017 | | Surgery at [facility] [address] | [address] | | | | | [address] [facility] | [place], [place] | | | | | Curtis Mailcode: [address] | [address] | | | | | Physician's | [phone] | | | | | [place], | | | | | | [place] [address] | | | | | | [phone] | | | +--------+ + + + [...]
--- OUTSIDE RECORDS SUMMARY | ~2019-08-14 | XMS | Encounter Summary ---
Demographics + + + | Address | [address] | | | [place] [address] | + + + | Home Phone | | + + + | Preferred Language | Unknown | + + + | Marital Status | | + + + | Evangelical Affiliation | NON | + + + | Race | White | + + + | Ethnic Group | Not or | + + + Author + + + | Author | [facility] | + + + | Organization | [facility] | + + + | Address | Unknown | + + + | Phone | Unavailable | + + + Support + + +---------+ + | Name | Relationship | Address | Phone | + + +---------+ + | Arabella Isidro | ECON | Unknown | | + + +---------+ + Care Team Providers + +------+ + | Care Certified Novell Administrator Name | Role | Phone | + +------+ + | Balbir Mercer NP | PCP | | + +------+ + Encounter Details +--------+ + + + + | Date | Type | Department | Care Team | Description | +--------+ + + + + | 03/19/ | Agency Sales Director | Pulmonary & | [place], | Mediastinal | | 2016 | | Critical Care | [address] | adenopathy (Primary | | | | Medicine at | [address] | Dx) | | | | Physicians [place] | [place], [place] | | | | | [address] | [address] | | | | | Joan Acevedo Mailcode: | [phone] | | | | | [facility] Physician's | | | | | | [address] | | | | | | [place], [place] | | | | | | [address] | | | | | | [phone] | | | +--------+ + + + [...]
--- OUTSIDE RECORDS SUMMARY | ~2019-08-14 | XMS | Encounter Summary ---
Demographics + + + | Address | [address] | | | [place] [address] | + + + | Home Phone | | + + + | Preferred Language | Unknown | + + + | Marital Status | | + + + | Taoism Affiliation | NON | + + + | Race | White | + + + | Ethnic Group | Not or | + + + Author + + + | Author | [facility] | + + + | Organization | [facility] | + + + | Address | Unknown | + + + | Phone | Unavailable | + + + Support + + +---------+ + | Name | Relationship | Address | Phone | + + +---------+ + | Arabella Isidro | ECON | Unknown | | + + +---------+ + Care Team Providers + +------+ + | Care Full Roll Inspector Name | Role | Phone | + +------+ + | Mark Bartlett PA-C | PCP | | + +------+ + Encounter Details +--------+ + + + + | Date | Type | Department | Care Team | Description | +--------+ + + + + | 03/18/ | Procedure | 6A Intra Op [facility] | | | | 2016 | Pass | [facility] | | | | | | Admitting Desk | | | | | | Located on the 9th | | | | | | floor [address] [facility] | | | | | | [address] | | | | | | [place], [place] | | | | | | [address] | | | +--------+ + + + [...]
--- OUTSIDE RECORDS SUMMARY | ~2019-08-14 | XMS | Encounter Summary ---
Demographics + + + | Address | [address] | | | [place] [address] | + + + | Home Phone [...] | Author | [facility] | + + + | Organization | [facility] | + + + | Address | Unknown | + + + | Phone | Unavailable | + + + Support + + +---------+ + | Name | Relationship | Address | Phone | + + +---------+ + | Arablela Isidro | ECON | Unknown | | + + +---------+ + Care Team Providers + +------+ + | Care Glove Maker Name | Role | Phone | [...] | | | [address] | [place], [place] | | | | | Rd Mailcode: [address] | [address] | | | | | Physician's | [phone] | | | | | [place] | | | | | | [place] [address] | | | | | | [phone] | | | +--------+ + + + [...]
--- OUTSIDE RECORDS SUMMARY | ~2019-08-14 | XMS | Clinical Summary ---
Demographics + + + | Address | [address] | | | [place] [address] | + + + | Home Phone | | + + + | Preferred Language | Unknown | + + + | Marital Status | | + + + | Jew Affiliation | 1013 | + + + | Race | Unknown | + + + | Ethnic Group | Unknown | + + + Author + + + | Author | [facility] (Historical as of | | | 06-05-19) | + + + | Organization | [facility] (Historical as of | | | 06-05-19) [...] Team Providers + +------+ + | Care Wardrobe Mistress Name | Role | Phone | + [...] | 2018 | Encounter | | [facility] Box Inspector | | +--------+ + + + + [...] At | + + + | | [facility] | | | RADIOLOGY | | CORONARY [...] of pulmonary sarcoidosis and the history of [place] | | | times 2; one treated in [place] and more recently [place], [place] | | | treated at [facility]. During that admission, she was | | [...] | visualized under ultrasound guidance and a 5-Croatian sidearm sheath was | | | inserted into the right radial artery. An antispasmodic solution | | | of 5000 units of heparin and 200 mcg of nitroglycerin were given | | | intraarterially to prevent spasm. A 5-Croatian Tommy catheter was | | | then advanced to the aortic root. The left coronary ostium was | | | selectively cannulated and multiple images in various projections of | | | this vessel were obtained following intracoronary contrast | | | injection. There was noted to be some arterial spasm at this point | | | in the procedure. The 5-Croatian Tommy catheter was then | | | removed. An additional 2000 mcg of nitroglycerin were given | | | intraarterially. A 5-Croatian FR4 catheter was then advanced to the | | | aortic root. The right coronary ostium was selectively cannulated | | | and multiple images in various projections of this vessel were | | | obtained following intracoronary contrast injection. The 5-Croatian | | | FR4 catheter was then [...] of pulmonary sarcoidosis and the history of [place] times | | 2; one treated in [place] and more recently [place], [place] treated at | | [facility]. During that admission, she was found to [...] was visualized under ultrasound guidance and a 5-Croatian sidearm sheath was | | inserted into the right radial artery. An antispasmodic solution of 5000 | | units of heparin and 200 mcg of nitroglycerin were given intraarterially to | | prevent spasm. A 5-Croatian Tommy catheter was then advanced to the aortic | | root. The left coronary ostium was selectively cannulated and multiple | | images in various projections of this vessel were obtained following | | intracoronary contrast injection. There was noted to be some arterial | | spasm at this point in the procedure. The 5-Croatian Tommy catheter was then | | removed. An additional 2000 mcg of nitroglycerin were given | | intraarterially. A 5-Croatian FR4 catheter was then advanced to the aortic | | root. The right coronary ostium was selectively cannulated and multiple | | images in various projections of this vessel were obtained following | | intracoronary contrast injection. The 5-Croatian FR4 catheter was then | | removed [...] [facility] | [address] | [place] [address] | | + + + + + [...] | + + + + + | [facility] | [address] | [place] [address] | | + + + + + [...] 43.3 | 37 - 53 fl | [facility] | + + + + + | PLT | 270 | 150 - 400 K/uL | [facility] | + + + + + | MPV | 8.2Comment: Testing | fl | [facility] | | | performed at [facility];[address] | | | | | [address];[place] | | | | | [address] | | | + + + + + + + + + + | Performing | Address | City/State/Zipcode | Phone Number | | Organization | | | | + + + + + | [facility] | [address] | [place] [address] | | + + + + + [...] (H) | 99 - 109 mmol/L | [facility] | + + + + + [...] >60Comment: GFR <60: | >60 mL/min/1.73m2 | [facility] | | | CHRONIC [...] the | | | | | [facility]D [facility] traceable | | | | | equation.Testing | | | | | performed at [facility];[address] | | | | | [facility];[place], [place] | | | | | [address] | | | + + + + + + + | Specimen | + + | Blood | + + + + + + + | Performing | Address | City/State/Zipcode | Phone Number | | Organization | | | | + + + + + | [facility] | [address] | [place] [address] | | + + + + + [...] +------+-------+ + | MEDICAID | [place] | [id number] | | | [address] | | | N | | | | [place], [place] | | | [place] | | | | [address] | | | BUILDING CONTRACTOR | | | | | + +--------+ +------+-------+ + | MEDICAID | [place] | [id number] | | | [address] | | | N | | | | [place], [place] | | | [place] | | | | [address] | | | BUILDING CONTRACTOR | | | | | + +--------+ [...] | mc | | | [phone] | [address] | + +--------+ +--------+ + +
--- OUTSIDE RECORDS SUMMARY | ~2019-08-14 | XMS | Clinical Summary ---
Demographics + + + | Address | [address] | | | [place] [address] | + + + | Home Phone | | + + + | Preferred Language | Unknown | + + + | Marital Status | | + + + | Anglican Affiliation | 1013 | + + + | Race | Unknown | + + + | Ethnic Group | Unknown | + + + Author + + + | Author | [facility] | | | and [place] | + + + | Organization | [facility] | | | [...] [place], [place] | | | | | [address] | | + + + + + | Arabella Isidro | ECON | Unknown | | + + + + + | Fabio Amaro | ECON | Unknown | | + + + + + Care Team Providers + +------+ + | Care Cycle Consultant Name | Role | Phone | [...] Coronary artery | Father | bill | [place] | | disease | | | | [...] of pulmonary sarcoidosis and the history of [place] | | | times 2; one treated in [place] and more recently in 2018, [place] | | | treated at [facility]. During that admission, she was | [...] | visualized under ultrasound guidance and a 5-Macedonian sidearm sheath was | | | inserted into the right radial artery. An antispasmodic solution | | | of 5000 units of heparin and 200 mcg of nitroglycerin were given | | | intraarterially to prevent spasm. A 5-Macedonian Tommy catheter was | | | then advanced to the aortic root. The left coronary ostium was | | | selectively cannulated and multiple images in various projections of | | | this vessel were obtained following intracoronary contrast | | | injection. There was noted to be some arterial spasm at this point | | | in the procedure. The 5-Macedonian Tommy catheter was then | | | removed. An additional 2000 mcg of nitroglycerin were given | | | intraarterially. A 5-Macedonian FR4 catheter was then advanced to the | | | aortic root. The right coronary ostium was selectively cannulated | | | and multiple images in various projections of this vessel were | | | obtained following intracoronary contrast injection. The 5-Macedonian | | | FR4 catheter was then [...] + | Tashi Gill - 07/29/2019 [address] | | | | CORONARY ANGIOGRAM REPORT [...] of pulmonary sarcoidosis and the history of [place] times | | 2; one treated in [place] and more recently in [place], [place] treated at | | [facility]. During that admission, she was found [...] was visualized under ultrasound guidance and a 5-Macedonian sidearm sheath was | | inserted into the right radial artery. An antispasmodic solution of 5000 | | units of heparin and 200 mcg of nitroglycerin were given intraarterially to | | prevent spasm. A 5-Macedonian Tommy catheter was then advanced to the aortic | | root. The left coronary ostium was selectively cannulated and multiple | | images in various projections of this vessel were obtained following | | intracoronary contrast injection. There was noted to be some arterial | | spasm at this point in the procedure. The 5-Macedonian Tommy catheter was then | | removed. An additional 2000 mcg of nitroglycerin were given | | intraarterially. A 5-Macedonian FR4 catheter was then advanced to the aortic | | root. The right coronary ostium was selectively cannulated and multiple | | images in various projections of this vessel were obtained following | | intracoronary contrast injection. The 5-Macedonian FR4 catheter was then | | removed [...] EXTERNAL | | | | performed at [facility];[address] | | LAB | | | | [address];[place], [place] | | | | | | [address] | | | | + + + [...] | | | | | performed at [facility];[address] | | | | | | [facility];[place], [place] | | | | | | [address] | | | | + + + [...] | [employer] | [employer] | [id number] | | [phone] | | [employer] | | MEDICAID HMO [...] | | al/Fam | | 1985 | [phone] | [place] | | | mc | | | 7 (Home) | [address] | + +--------+ +--------+ + + | Dipak Amaro | Person | Self | [birth year] | [address] | | | al/Jean | | 1985 | [phone] | [place] | | | mc | | | 7 (Home) | [address] | + +--------+ +--------+ + + Advance Directives Patient has advance care planning documents, and code status on file. For more information, please contact:[facility] [place] [address] + + + + + | Code Status | Date | Date | Comments | | | Activated | Inactivated | | + + + + + | Full Code | 01/20/2017 | 01/21/2017 | | | | 9:14 | 19:09 | | + + + + +
--- OUTSIDE RECORDS SUMMARY | ~2019-08-14 | XMS | Encounter Summary ---
Demographics + + + | Address | [address] | | | [place] [address] | + + + | Home Phone [...] + + + | Author | [facility] | + + + | Organization | [facility] | + + + | Address | Unknown | + + + | Phone | Unavailable | + + + Support + + +---------+ + | Name | Relationship | Address | Phone | + + +---------+ + | Arabella Isidro | ECON | Unknown | | + + +---------+ + Care Team Providers + +------+ + | Care Polygraph Technician Name | Role | Phone | [...] | | | [address] Mail[address]: [address] | [place], [place] | | | | | Physician's | [address] | | | | | [place], | [phone] | | | | | [place] [address] | | | | | | [phone] | | | +--------+ + + + [...]
[~2019-08-14 13:59] MED LIST changes: +ISOSORBIDE MONO30 MG PO; +MEDROL4 MG PO; +METOPROLOL TART50 MG PO; +PROMETH-CODEIN 65 ML PO; +ZITHROMAX250 MG PO
--- OUTSIDE RECORDS SUMMARY | 2019-08-14 14:02 | XMS ---
PreManage Notification: DOUGLAS CAMPBELL Security Windshield Technician Events No recent Security Events currently on file CRITERIA MET - Group Notification - [facility] - Has Care Guidelines CARE PROVIDERS PAIGE PATRICK Physician Operating Table Assembler 06/15/2018-Current PHONE: [phone] MARISELA VITAL Primary Care Current PHONE: [phone] Ronak Perez Primary Care Current PHONE: Unknown Darrell has no Care Guidelines for this patient. Care History Medical/Surgical 05/14/2019 [facility] - [facility] REFERRAL MADE- FOR CLOSE FOLLOW UP TO ED VISIT. 06/19/2018 [facility] - UPDATE- 10/26/18-PATIENT WAS LAST SEEN BY PCP 06/10/18 AND HAD A FOLLOW UP APT ON 07/08/18 AND NO SHOWED TO FOLLOW UP APT. - CHW CONTACTED PATIENT AND STATED TO FOLLOW UP WITH PCP AFTER RECENT ED VISIT AND WENT OVER THE ED VS PCP GUIDELINE USAGE. PATIENT IS AWARE. - AGUSTIN CURRENTLY HAS ELZBIETA PATRICK PCP. - PATIENT HAS FOLLOW UP WITH PCP IN THE OFFICE BUT NEEDS TO SEE PAPER INSPECTOR. - CHW REFERRING PATIENT TO [facility] CASE MANAGEMENT TO HELP PATIENT WITH FURTHER MANAGEMENT OF HEALTH. - [facility]NA[facility] CAN BE CONTACTED- ADOLFO- [phone]. E.D. VISIT COUNT (12 MO.) 4 IZABELLA Yan TOTAL 4 NOTE: Visits indicate total known visits. ED/C VISIT TRACKING (12 MO.) 08/14/2019 13:[address] [facility] [place] TYPE: Emergency COMPLAINT: - CHEST PAIN 05/13/2019 13:25 [facility] [place] TYPE: Emergency COMPLAINT: - CHEST PAIN DIAGNOSES: - Chest pain, unspecified - Anxiety disorder, unspecified - Essential (primary) hypertension - Other snf (current) drug therapy - Personal history of nicotine dependence - computer terminal operator (current) use of aspirin - Old myocardial infarction 04/26/2019 07:21 [facility] [place] TYPE: Emergency COMPLAINT: - SOB DIAGNOSES: - Essential (primary) hypertension - Other termite technician (current) drug therapy - detention (current) use of oral hypoglycemic drugs - Bipolar disorder, unspecified - Bronchitis, not specified as acute or chronic - Cough - detention (current) use of aspirin 10/22/2018 23:03 [facility] [place] TYPE: Emergency COMPLAINT: - CHEST PAIN DIAGNOSES: - Other chest pain - Essential (primary) hypertension - Other snf (current) drug therapy - Old myocardial infarction - Bipolar disorder, unspecified INPATIENT VISIT TRACKING (12 MO.) No inpatient visits to display in this time frame [email or web address]
[2019-08-14] MEDS ORDERED: PLAVIX75 MG PO (18:08)
--- NOTE | 2019-08-14 19:59 | EKG ---
[facility] [address] [facility] [place], [place] [address] Signed Normal sinus rhythm Normal ECG Confirmed by KARLA HAYWOOD MD ([id number]) on 08/14/2019 7:59:31 PM Electronically Signed By: KARLA HAYWOOD MD 08/14/19 195 PATIENT NAME: DOUGLAS CAMPBELL Electrocardiogram DATE OF : [birth year] PHYSICIAN: KARLA HAYWOOD MD REPORT #: [id number] REPORT IS CONFIDENTIAL AND NOT TO BE RELEASED WITHOUT AUTHORIZATION
--- NOTE | 2019-08-14 19:59 | EKG ---
[facility] [address] [place], [place] [address] Signed Sinus bradycardia with sinus arrhythmia Otherwise normal ECG When compared with ECG of 14-AUG-2019 14:03, (Unconfirmed) No significant change was found Confirmed by KARLA HAYWOOD MD ([id number]) on 08/14/2019 7:59:41 PM Electronically Signed By: KARLA HAYWOOD MD 08/14/191958 PATIENT NAME: DOUGLAS CAMPBELL DEVAN Electrocardiogram DATE OF : [birth year] PHYSICIAN: KARLA HAYWOOD MD REPORT #: [id number] REPORT IS CONFIDENTIAL AND NOT TO BE RELEASED WITHOUT AUTHORIZATION
== END 2019-08-14 18:19 | disposition home or self-care (01) ==
LOC: ED 13:59
DX: R07.9 Chest pain, unspecified (principal); I10 Essential (primary) hypertension; I25.2 Old myocardial infarction; Z87.891 Personal history of nicotine dependence; Z79.02 Long term (current) use of antithrombotics/antiplatelets; Z79.82 Long term (current) use of aspirin; Z79.899 Other long term (current) drug therapy
CPT/HCPCS: 71045; 80053; 83735; 84484; 85025; 85379; 85610; 93005; 93010; 96374; 99285-25; J1885

== ENCOUNTER 2021-09-29 06:13 | Emergency (ER) | payer OTHER ==
[~2021-09-29] VITALS: Ht 157.5 cm; Wt 145.1 kg
--- OUTSIDE RECORDS SUMMARY | 2021-09-29 06:16 | XMS ---
PreManage Notification: DOUGLAS CAMPBELL Security Certified Indoor Environmentalist Events No recent Security Events currently on file CRITERIA MET - PDMP - Group Notification CARE PROVIDERS PAIGE PATRICK Physician Remarketing Rep 06/15/2018-Current PHONE: [phone] Darrell has no Care Guidelines for this patient. Care History Medical/Surgical 05/14/2019 [facility] - [facility] REFERRAL MADE- FOR CLOSE FOLLOW UP TO ED VISIT. 06/19/2018 [facility] - UPDATE- 10/26/18-PATIENT WAS LAST SEEN BY PCP 06/10/18 AND HAD A FOLLOW UP APT ON 07/08/18 AND NO SHOWED TO FOLLOW UP APT. - CHW CONTACTED PATIENT AND STATED TO FOLLOW UP WITH PCP AFTER RECENT ED VISIT AND WENT OVER THE ED VS PCP GUIDELINE USAGE. PATIENT IS AWARE. - PATIENTLY CURRENTLY HAS ELZBIETA PATRICK PCP. - PATIENT HAS FOLLOW UP WITH PCP IN THE OFFICE BUT NEEDS TO SEE MEDICAL REVIEW SPECIALIST. - [facility]W REF[facility] TO HELP PATIENT WITH FURTHER MANAGEMENT OF HEALTH. - [facility] CAN BE CONTACTED- ADOLFO- [phone]. E.D. VISIT COUNT ([address] 1 [facility] 1 [address] [place] TOTAL 2 NOTE: Visits indicate total known visits. ED/UCC VISIT TRACKING (12 MO.) 09/29/2021 06:14 [place] TYPE: Emergency COMPLAINT: - SOB, RIB PAIN/NO INJURY 12/04/2020 16:22 [facility] [place] TYPE: Emergency DIAGNOSES: - Chest Pain - Chest pain, unspecified - chest pain earlier in the day INPATIENT VISIT TRACKING (12 MO.) No inpatient visits to display in this time frame [id number]
--- NOTE | 2021-09-29 20:40 | EKG ---
[facility] [address] [facility] [facility] [place], [place] [address] Signed Normal sinus rhythm Moderate voltage criteria for LVH, may be normal variant ( R in aVL , [place] product ) Borderline ECG When compared with ECG of 14-AUG-2019 17:33, No significant change was found Confirmed by COLT SANTOS DO ([id number]) on 09/29/2021 8:40:16 PM Electronically Signed By: COLT SANTOS DO 09/29/212039 PATIENT NAME: DOUGLAS CAMPBELL DEVAN Electrocardiogram DATE OF : 85 PHYSICIAN: COLT SANTOS DO REPORT #: [id number] REPORT IS CONFIDENTIAL AND NOT TO BE RELEASED WITHOUT AUTHORIZATION
== END 2021-09-29 08:55 | disposition home or self-care (01) ==
LOC: ED 06:13
DX: R07.81 Pleurodynia (principal); I10 Essential (primary) hypertension; I25.2 Old myocardial infarction; Z87.891 Personal history of nicotine dependence; Z88.8 Allergy status to other drugs, medicaments and biological substances; Z79.899 Other long term (current) drug therapy; Z79.82 Long term (current) use of aspirin
CPT/HCPCS: 71046; 80053; 84484; 85025; 85379; 93005; 93010; 96374; 99285-25; J1885

== ENCOUNTER 2022-07-20 05:36 | Emergency (ER) | payer OTHER ==
[~2022-07-20] VITALS: Ht 157.5 cm; Wt 136.1 kg
--- OUTSIDE RECORDS SUMMARY | 2022-07-20 05:41 | XMS ---
PreManage Notification: DOUGLAS CAMPBELL Security Welding Equipment Repairer Supervisor Events No recent Security Events currently on file CRITERIA MET - PDMP - Group Notification CARE PROVIDERS PAIGE PATRICK Physician Returns Clerk 06/15/2018-Current PHONE: [phone] [facility]Current PHONE: Unknown Darrell has no Care Guidelines for this patient. Care History Medical/Surgical 05/14/2019 [facility] - [facility] REFERRAL MADE- FOR CLOSE FOLLOW UP TO ED VISIT. 06/19/2018 [facility] - UPDATE- 10/26/18-PATIENT WAS LAST SEEN BY [...] IN THE OFFICE BUT NEEDS TO SEE ARCHEOLOGIST. - CHW REFERRING PATIENT TO [facility] TO HELP PATIENT WITH FURTHER MANAGEMENT OF HEALTH. - [facility]NAG[facility] CAN BE CONTACTED- ADOLFO- [phone]. [place] VISIT COUNT (12 MO.) 2 [place]LL[place] TOTAL 2 NOTE: Visits indicate total known visits. ED/UCC VISIT TRACKING (12 MO.) 07/20/2022 05:37 [place] TYPE: Emergency COMPLAINT: - L FOOT INJ 09/29/2021 06:[address] [facility] [place] TYPE: Emergency COMPLAINT: - SOB, RIB PAIN/NO INJURY DIAGNOSES: - Allergy status to other drugs, medicaments and biological substances - Essential (primary) hypertension - Old myocardial infarction - Other custodial (current) drug therapy - Pleurodynia - Personal history of nicotine dependence - senior care (current) use of aspirin INPATIENT VISIT TRACKING (12 MO.) No inpatient visits to display in this time frame [email or web address]
[2022-07-20] MEDS ORDERED: HYDROCHLOROTH12.5 M1 PO (05:57)
[2022-07-20] MEDS ORDERED: HYDROXYZINE HCL10 MG PO (05:57)
[2022-07-20] MEDS ORDERED: METOPROLOL SUCC50 MG PO (05:58)
[2022-07-20] MEDS ORDERED: LITHIUM CARBON150 MG PO (05:58)
[2022-07-20] MEDS ORDERED: METFORMIN HCL500 MG PO (05:59)
== END 2022-07-20 06:50 | disposition home or self-care (01) ==
LOC: ED 05:36
DX: S91.302A Unspecified open wound, left foot, initial encounter (principal); W22.8XXA Striking against or struck by other objects, initial encounter; I10 Essential (primary) hypertension; I25.2 Old myocardial infarction; Z87.891 Personal history of nicotine dependence; Z88.8 Allergy status to other drugs, medicaments and biological substances; Z79.899 Other long term (current) drug therapy; Z79.84 Long term (current) use of oral hypoglycemic drugs; Z79.82 Long term (current) use of aspirin
CPT/HCPCS: 90471; 90715; 99283-25

== ENCOUNTER 2023-02-03 16:08 | Emergency (ER) | payer OTHER ==
[~2023-02-03] VITALS: Ht 157.5 cm; Wt 135.0 kg
[~2023-02-03 16:08] MED LIST changes: +HYDROXYZINE HCL10 MG PO; +LITHIUM CARBON150 MG PO; +METOPROLOL SUCC50 MG PO
--- OUTSIDE RECORDS SUMMARY | 2023-02-03 16:12 | XMS ---
PreManage Notification: DOUGLAS CAMPBELL Security Agency Manager Events No recent Security Events currently on file CRITERIA MET - Group Notification - PDMP CARE PROVIDERS PAIGE PATRICK Physician Chief Pilot 06/15/2018-Current PHONE: [phone] [facility]Current PHONE: Unknown Darrell has no Care Guidelines for this patient. Care History Medical/Surgical 05/14/2019 [facility] - [facility] REFERRAL MADE- FOR CLOSE FOLLOW UP TO ED VISIT. 06/19/2018 [facility] - UPDATE- 10/26/18-PATIENT WAS LAST SEEN [...] IN THE OFFICE BUT NEEDS TO SEE VAN DRIVER. - CHW REFERRING PATIENT TO [facility] TO HELP PATIENT WITH FURTHER MANAGEMENT OF HEALTH. - [facility]NA[facility] CAN BE CONTACTED- ADOLFO- [phone]. [place] VISIT COUNT (12 MO.) 2 [place] TOTAL 2 NOTE: Visits indicate total known visits. ED/UCC VISIT TRACKING (12 MO.) 02/03/2023 16:09 [place] TYPE: Emergency COMPLAINT: - ABD PAIN 07/20/2022 05:[address] 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
[2023-02-03] MEDS ORDERED: HYDROCODON-ACE1 EA11 PO (18:35)
[2023-02-03 18:50] VITALS: BP 148/94
== END 2023-02-03 18:51 | disposition home or self-care (01) ==
LOC: ED 16:08
DX: R10.10 Upper abdominal pain, unspecified (principal); J40 Bronchitis, not specified as acute or chronic; I10 Essential (primary) hypertension; I25.2 Old myocardial infarction; Z87.891 Personal history of nicotine dependence; Z88.8 Allergy status to other drugs, medicaments and biological substances; Z79.899 Other long term (current) drug therapy; Z79.82 Long term (current) use of aspirin
CPT/HCPCS: 36415; 71045; 76705; 80053; 83690; 84703; 85025; J1885; J2405; J7030

== ENCOUNTER 2023-05-21 22:26 | Emergency (ER) | payer OTHER ==
[~2023-05-21] VITALS: Ht 157.5 cm; Wt 134.7 kg
--- OUTSIDE RECORDS SUMMARY | ~2023-05-21 | XMS | Continuity of Care Document ---
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 | (no reaction) | (no severity) | | | | [facility] | | | + + + + + + | (no date) | Sedated | [facility] | (no reaction) | (no severity) | | | | [facility] | | | + + + + + + | (no date) | Trazodone | [facility] | (no reaction) | (no severity) | | | | [facility] | | | + + + + + + | (no date) | Trazodone | [facility] | (no reaction) | (no severity) | | | | [facility] | | | + + + + + + Encounters No information. Functional Status No information. Immunizations + + + + | date | description | facility | + + + + | 2022-07-20 00:00 | Tdap | [facility] | + + + + | 2014-10-05 00:00 | DTaP | [facility] | + + + + Medications + + + + | date | description | facility | + + + + | 2013-10-28 00:00 | ONDANSETRON HCL | [facility] | + + + + | 2017-06-27 00:00 | ALPRAZOLAM | [facility] | + + + + | 2022-07-20 00:00 | IBUPROFEN | [facility] | + + + + | 2023-02-03 00:00 | IBUPROFEN | [facility] | + + + + | 2022-07-20 00:00 | ATENOLOL | [facility] | + + + + | 2023-02-03 00:00 | ATENOLOL | [facility] | + + + + | 2022-07-20 00:00 | BACLOFEN | [facility] | + + + + | 2023-02-03 00:00 | BACLOFEN | [facility] | + + + + | 2017-05-08 00:00 | LORAZEPAM | [facility] | + + + + | 2022-07-20 00:00 | NITROGLYCERIN | [facility] | + + + + | 2023-02-03 00:00 | NITROGLYCERIN | [facility] | + + + + | 2022-07-20 00:00 | predniSONE | [facility] | + + + + | 2023-02-03 00:00 | predniSONE | [facility] | + + + + | 2022-07-20 00:00 | RANITIDINE HCL | [facility] | + + + + | 2023-02-03 00:00 | RANITIDINE HCL | [facility] | + + + + | 2022-07-20 00:00 | HYDROCHLOROTHIAZIDE | [facility] | + + + + | 2023-02-03 00:00 | HYDROCHLOROTHIAZIDE | [facility] | + + + + | 2022-07-20 00:00 | CARVEDILOL | [facility] | + + + + | 2023-02-03 00:00 | CARVEDILOL | [facility] | + + + + | 2022-07-20 00:00 | NITROGLYCERIN | [facility] | + + + + | 2023-02-03 00:00 | NITROGLYCERIN | [facility] | + + + + | 2019-04-26 00:00 | AZITHROMYCIN | [facility] | + + + + | 2018-03-29 00:00 | CLOPIDOGREL BISULFATE | [facility] | + + + + | 2019-08-14 00:00 | CLOPIDOGREL BISULFATE | [facility] | + + + + | 2019-04-26 00:00 | METHYLPREDNISOLONE | [facility] | + + + + | 2022-07-20 00:00 | AMOXICILLIN | [facility] | + + + + | 2023-02-03 00:00 | AMOXICILLIN | [facility] | + + + + | 2022-07-20 00:00 | ASPIRIN | [facility] | + + + + | 2023-02-03 00:00 | ASPIRIN | [facility] | + + + + | 2022-07-20 00:00 | CLOPIDOGREL BISULFATE | [facility] | + + + + | 2023-02-03 00:00 | CLOPIDOGREL BISULFATE | [facility] | + + + + | 2022-07-20 00:00 | GABAPENTIN | [facility] | + + + + | 2023-02-03 00:00 | GABAPENTIN | [facility] | + + + + | 2022-07-20 00:00 | LITHIUM CARBONATE | [facility] | + + + + | 2023-02-03 00:00 | LITHIUM CARBONATE | [facility] | + + + + | 2018-02-03 00:00 | predniSONE | [facility] | + + + + | 2022-07-20 00:00 | ISOSORBIDE MONONITRATE | [facility] | + + + + | 2023-02-03 00:00 | ISOSORBIDE MONONITRATE | [facility] | + + + + | 2022-07-20 00:00 | HYDROCHLOROTHIAZIDE | [facility] | + + + + | 2023-02-03 00:00 | HYDROCHLOROTHIAZIDE | [facility] | + + + + | 2022-07-20 00:00 | DULOXETINE HCL | [facility] | + + + + | 2023-02-03 00:00 | DULOXETINE HCL | [facility] | + + + + | 2022-07-20 00:00 | ATORVASTATIN CALCIUM | [facility] | + + + + | 2023-02-03 00:00 | ATORVASTATIN CALCIUM | [facility] | + + + + | 2022-07-20 00:00 | ATORVASTATIN | [facility] | + + + + | 2023-02-03 00:00 | ATORVASTATIN | [facility] | + + + + | 2022-07-20 00:00 | ALBUTEROL SULFATE | [facility] | + + + + | 2023-02-03 00:00 | ALBUTEROL SULFATE | [facility] | + + + + | 2017-06-25 00:00 | CYCLOBENZAPRINE HCL | [facility] | + + + + | 2018-06-14 00:00 | TRAMADOL HCL | [facility] | + + + + | 2013-05-03 00:00 | NAPROXEN SODIUM | [facility] | + + + + | 2013-10-28 00:00 | HYDROCODONE | [facility] | | | BIT/ACETAMINOPHEN | | + + + + | 2022-07-20 00:00 | HYDROCODONE | [facility] | | | BIT/ACETAMINOPHEN | | + + + + | 2023-02-03 00:00 | HYDROCODONE | [facility] | | | BIT/ACETAMINOPHEN | | + + + + | 2023-02-03 00:00 | HYDROCODONE | [facility] | | | BIT/ACETAMINOPHEN | | + + + + | 2018-02-03 00:00 | ALBUTEROL SULFATE | [facility] | + + + + | 2022-07-20 00:00 | ALBUTEROL SULFATE | [facility] | + + + + | 2023-02-03 00:00 | ALBUTEROL SULFATE | [facility] | + + + + | 2022-07-20 00:00 | METFORMIN HCL | [facility] | + + + + | 2023-02-03 00:00 | METFORMIN HCL | [facility] | + + + + | 2018-03-29 00:00 | METOPROLOL SUCCINATE | [facility] | + + + + | 2022-07-20 00:00 | METOPROLOL SUCCINATE | [facility] | + + + + | 2023-02-03 00:00 | METOPROLOL SUCCINATE | [facility] | + + + + | 2022-07-20 00:00 | METOPROLOL SUCCINATE | [facility] | + + + + | 2023-02-03 00:00 | METOPROLOL SUCCINATE | [facility] | + + + + | 2022-07-20 00:00 | METOPROLOL TARTRATE | [facility] | + + + + | 2023-02-03 00:00 | METOPROLOL TARTRATE | [facility] | + + + + | 2022-07-20 00:00 | METOPROLOL TARTRATE | [facility] | + + + + | 2023-02-03 00:00 | METOPROLOL TARTRATE | [facility] | + + + + | 2019-04-26 00:00 | PROMETHAZINE HCL/CODEINE | [facility] | + + + + | 2018-04-10 00:00 | PROMETHAZINE HCL | [facility] | + + + + | 2014-04-23 00:00 | ACETAMINOPHEN WITH CODEINE | [facility] | | | | | + + + + | 2022-07-20 00:00 | HYDROXYZINE HCL | [facility] | + + + + | 2023-02-03 00:00 | HYDROXYZINE HCL | [facility] | + + + + Problems + + + + | date | description | facility | + + + + | 2016-01-09 00:00 | Superficial | [facility] | | | thrombophlebitis | | + + + + | 2016-01-14 00:00 | Phlebitis | [facility] | + + + + | 2016-01-14 00:00 | Pain in lower extremity | [facility] | | | due to sciatica | | + + + + | 2016-01-14 00:00 | Pain of left lower | [facility] | | | extremity | | + + + + | 2017-01-19 00:00 | Chest pain | [facility] | + + + + | 2017-01-19 00:00 | Thoracic lymphadenopathy | [facility] | + + + + | 2017-01-19 00:00 | Elevated troponin level | [facility] | + + + + | 2017-01-26 00:00 | Chest pain | [facility] | + + + + | 2017-05-06 00:00 | Elevated troponin I level | [facility] | + + + + | 2017-06-25 00:00 | Muscle cramps | [facility] | + + + + | 2017-06-27 00:00 | Sarcoidosis | [facility] | + + + + | 2017-06-27 00:00 | Panic attack | [facility] | + + + + | 2017-06-27 00:00 | Nonspecific chest pain | [facility] | + + + + | 2017-12-05 00:00 | Patient left without being | [facility] | | | seen | | + + + + | 2017-12-10 00:00 | Encounter for medical | [facility] | | | screening examination | | + + + + | 2018-02-23 00:00 | Non-ST elevation (NSTEMI) | [facility] | | | myocardial infarction | | + + + + | 2018-02-23 00:00 | Back pain | [facility] | + + + + | 2018-03-29 00:00 | Encounter for medication | [facility] | | | refill | | + + + + | 2018-04-10 00:00 | Depression | [facility] | + + + + | 2018-04-10 00:00 | Nausea | [facility] | + + + + | 2018-06-14 00:00 | Atypical chest pain | [facility] | + + + + | 2018-06-14 00:00 | History of sarcoidosis | [facility] | + + + + | 2018-06-18 00:00 | Sprain of left foot | [facility] | + + + + | 2018-10-23 00:00 | Non-cardiac chest pain | [facility] | + + + + | 2019-04-26 00:00 | Bronchitis | [facility] | + + + + | 2021-09-29 00:00 | Pleurodynia | [facility] | + + + + | 2023-02-03 00:00 | Abdominal pain | [facility] | + + + + Procedures No information. Results/Labs +--------+--------+ +---------+--------+---------+ | test | date | facility | value | unit | notes | +--------+--------+ +---------+--------+---------+ + + | Result panel 1 | + + + + + +-------+ + + | | 2023-02-03 | [facility] | 7.7 | (missing) | (missing) | | (unavailable | 17:35:07 | [facility] | | | | + + + +-------+ + + + + | Result panel 2 | + + + + + +--------+ + + | | 2023-02-03 | [facility] | 71.8 | (missing) | (missing) | | (unavailable | 17:35:07 | [facility] | | | | + + + +--------+ + + + + | Result panel 3 | + + + + + +--------+ + + | | 2023-02-03 | [facility] | 13.5 | (missing) | (missing) | | (unavailable | 17:35:07 | [facility] | | | | + + + +--------+ + + + + | Result panel 4 | + + + + + +--------+ + + | | 2023-02-03 | [facility] | 11.5 | (missing) | (missing) | | (unavailable | 17:35:07 | [facility] | | | | + + + +--------+ + + + + | Result panel 5 | + + + + + +-------+ + + | | 2023-02-03 | [facility] | 2.8 | (missing) | (missing) | | (unavailable | 17:35:07 | [facility] | | | | + + + +-------+ + + + + | Result panel 6 | + + + + + +-------+ + + | | 2023-02-03 | [facility] | 0.4 | (missing) | (missing) | | (unavailable | 17:35:07 | [facility] | | | | + + + +-------+ + + + + | Result panel 7 | + + + + + +------+---------+ + | | 2023-02-03 | [facility] | 93 | mg/dL | (missing) | | (unavailable | 17:35:07 | [facility] | | | | + + + +------+---------+ + + + | Result panel 8 | + + + + + +------+---------+ + | | 2023-02-03 | [facility] | 13 | mg/dL | (missing) | | (unavailable | 35:07 | [facility] | | | | + + + +------+---------+ + + + | Result panel 9 | + + + + + +--------+---------+ + | | 2023-02-03 | [facility] | 1.11 | mg/dL | (missing) | | (unavailable | 17:35:07 | [facility] | | | | + + + +--------+---------+ + + + | Result panel 10 | + + + + + +------+ + + | | 2023-02-03 | [facility] | 66 | (missing) | (missing) | | (unavailable | 17:35:07 | [facility] | | | | + + + +------+ + + + + | Result panel 11 | + + + + + +---------+ + + | | 2023-02-03 | [facility] | 11.71 | (missing) | (missing) | | (unavailable | 17:35:07 | [facility] | | | | + + + +---------+ + + + + | Result panel 12 | + + + + + +--------+ + + | | 2023-02-03 | [facility] | 4.28 | (missing) | (missing) | | (unavailable | 17:35:07 | [facility] | | | | + + + +--------+ + + + + | Result panel 13 | + + + + + +-------+ + + | | 2023-02-03 | [facility] | 141 | (missing) | (missing) | | (unavailable | 17:35:07 | [facility] | | | | + + + +-------+ + + + + | Result panel 14 | + + + + + +-------+ + + | | 2023-02-03 | [facility] | 4.0 | (missing) | (missing) | | (unavailable | 17:35:07 | [facility] | | | | + + + +-------+ + + + + | Result panel 15 | + + + + + +-------+ + + | | 2023-02-03 | [facility] | 104 | (missing) | (missing) | | (unavailable | 17:35:07 | [facility] | | | | + + + +-------+ + + + + | Result panel 16 | + + + + + +------+ + + | | 2023-02-03 | [facility] | 28 | (missing) | (missing) | | (unavailable | 17:35:07 | [facility] | | | | + + + +------+ + + + + | Result panel 17 | + + + + + +--------+ + + | | 2023-02-03 | [facility] | 13.0 | (missing) | (missing) | | (unavailable | 17:35:07 | [facility] | | | | + + + +--------+ + + + + | Result panel 18 | + + + + + +-------+---------+ + | | 2023-02-03 | [facility] | 9.3 | mg/dL | (missing) | | (unavailable | 17:35:07 | [facility] | | | | + + + +-------+---------+ + + + | Result panel 19 | + + + + + +-------+ + + | | 2023-02-03 | [facility] | 7.0 | (missing) | (missing) | | (unavailable | [facility]:35:07 | [facility] | | | | + + + +-------+ + + + + | Result panel 20 | + + + + + +-------+ + + | | 2023-02-03 | [facility] | 3.5 | (missing) | (missing) | | (unavailable | [facility]:35:07 | [facility] | | | | + + + +-------+ + + + + | Result panel 21 | + + + + + +-------+ + + | | 2023-02-03 | [facility] | 3.5 | (missing) | (missing) | | (unavailable | [facility]:35:07 | [facility] | | | | + + + +-------+ + + + + | Result panel 22 | + + + + + +--------+ + + | | 2023-02-03 | [facility] | 1.00 | (missing) | (missing) | | (unavailable | [facility]:35:07 | [facility] | | | | + + + +--------+ + + + + | Result panel 23 | + + + + + +--------+ + + | | 2023-02-03 | [facility] | 12.5 | (missing) | (missing) | | (unavailable | [facility]:35:07 | [facility] | | | | + + + +--------+ + + + + | Result panel 24 | + + + + + +-------+ + + | | 2023-02-03 | [facility] | 0.5 | (missing) | (missing) | | (unavailable | [facility]:35:07 | [facility] | | | | + + + +-------+ + + + + | Result panel 25 | + + + + + +------+ + + | | 2023-02-03 | [facility] | 14 | (missing) | (missing) | | (unavailable | [facility]:35:07 | [facility] | | | | + + + +------+ + + + + | Result panel 26 | + + + + + +------+ + + | | 2023-02-03 | [facility] | 23 | (missing) | (missing) | | (unavailable | [facility]:35:07 | [facility] | | | | + + + +------+ + + + + | Result panel 27 | + + + + + +------+ + + | | 2023-02-03 | [facility] | 74 | (missing) | (missing) | | (unavailable | [facility]:35:07 | [facility] | | | | + + + +------+ + + + + | Result panel 28 | + + + + + +-------+ + + | | 2023-02-03 | [facility] | 101 | (missing) | (missing) | | (unavailable | [facility]:35:07 | [facility] | | | | + + + +-------+ + + + + | Result panel 29 | + + + + + + + + + | | 2023-02-03 | [facility] | NEGATIVE | (missing) | (missing) | | (unavailable | [facility]:07 | [facility] | | | | + + + + + + + + + | Result panel 30 | + + + + + +--------+ + + | | 2023-02-03 | [facility] | 39.0 | (missing) | (missing) | | (unavailable | [facility]:07 | [facility] | | | | + + + +--------+ + + + + | Result panel 31 | + + + + + +--------+ + + | | 2023-02-03 | [facility] | 91.1 | (missing) | (missing) | | (unavailable | [facility]35:07 | [facility] | | | | + + + +--------+ + + + + | Result panel 32 | + + + + + +--------+ + + | | 2023-02-03 | [facility] | 29.3 | (missing) | (missing) | | (unavailable | [facility]:35:07 | [facility] | | | | + + + +--------+ + + + + | Result panel 33 | + + + + + +--------+ + + | | 2023-02-03 | [facility] | 32.1 | (missing) | (missing) | | (unavailable | [facility]:07 | [facility] | | | | + + + +--------+ + + + + | Result panel 34 | + + + + + +--------+ + + | | 2023-02-03 | [facility] | 14.4 | (missing) | (missing) | | (unavailable | [facility]:07 | [facility] | | | | + + + +--------+ + + + + | Result panel 35 | + + + + + +-------+ + + | | 2023-02-03 | [facility] | 395 | (missing) | (missing) | | (unavailable | [facility]:35:07 | [facility] | | | | + + + +-------+ + + Social History No information. Vital Signs + + + +---------+ | date | measurement | value | units | + + + +---------+ | 2022-07-20 00:00 | BMI | 54.9 | kg/m2 | + + + +---------+ | 2022-07-20 00:00 | BP_diastolic | 99 | mmHg | + + + +---------+ | 2022-07-20 00:00 | BP_systolic | 164 | mmHg | + + + +---------+ | 2022-07-20 00:00 | heart_rate | 89 | /min | + + + +---------+ | 2022-07-20 00:00 | height_metric | 157.48 | cm | + + + +---------+ | 2022-07-20 00:00 | height_standard | 62 | in | + + + +---------+ | 2022-07-20 00:00 | o2_saturation | 100 | % | + + + +---------+ | 2022-07-20 00:00 | respiration_rate | 18 | /min | + + + +---------+ | 2022-07-20 00:00 | temperature_metric | 36.56 | C | | | | | | + + + +---------+ | 2022-07-20 00:00 | | 97.8 | F | | | temperature_standar | | | | | d | | | + + + +---------+ | 2022-07-20 00:00 | weight_metric | 136.08 | kg | + + + +---------+ | 2022-07-20 00:00 | weight_standard | 300 | lb | + + + +---------+ | 2022-07-20 00:00 | weight_standard | 300.01 | lb | + + + +---------+ | 2023-02-03 00:00 | BMI | 54.4 | kg/m2 | + + + +---------+ | 2023-02-03 00:00 | BP_diastolic | 94 | mmHg | + + + +---------+ | 2023-02-03 00:00 | BP_systolic | 148 | mmHg | + + + +---------+ | 2023-02-03 00:00 | heart_rate | 71 | /min | + + + +---------+ | 2023-02-03 00:00 | height_metric | 157.48 | cm | + + + +---------+ | 2023-02-03 00:00 | height_standard | 62 | in | + + + +---------+ | 2023-02-03 00:00 | o2_saturation | 100 | % | + + + +---------+ | 2023-02-03 00:00 | respiration_rate | 16 | /min | + + + +---------+ | 2023-02-03 00:00 | temperature_metric | 36.44 | C | | | | | | + + + +---------+ | 2023-02-03 00:00 | | 97.6 | F | | | temperature_standar | | | | | d | | | + + + +---------+ | 2023-02-03 00:00 | weight_metric | 135 | kg | + + + +---------+ | 2023-02-03 00:00 | weight_standard | 297.62 | lb | + + + +---------+ | 2023-02-03 00:00 | weight_standard | 297.63 | lb | + + + +---------+"
--- OUTSIDE RECORDS SUMMARY | ~2023-05-21 | XMS | Continuity of Care Document ---
Demographics + + + | Address | [address] | | | [place] [address] | + + + | Preferred Language | Unknown | + + + | Marital Status | Never | + + + | Baptism Affiliation | Unknown | + + + | Race | White | + + + | Ethnic Group | Not or | + + + Author + + + | Author | [facility] | + + + | Organization | [facility] | + + + | Address | [address] | | | [place] [address] | + + + | Phone | | + + + Care Team Providers + + + + | Care Publications Sales Representative Name | Role | Phone | [...] + | 2022-07-20 00:00 | Tdap | [facility] | + + + + | 2014-10-05 00:00 | DTaP | [facility] | + + + + Medications + + + + | date | description | facility | + + + + | 2013-10-28 00:00 | ONDANSETRON HCL | [facility] | + + + + | 2017-06-27 00:00 | ALPRAZOLAM | [facility] | + + + + | 2022-07-20 00:00 | IBUPROFEN | [facility] | + + + + | 2023-02-03 00:00 | IBUPROFEN | [facility] | + + + + | 2022-07-20 00:00 | ATENOLOL | [facility] | + + + + | 2023-02-03 00:00 | ATENOLOL | [facility] | + + + + | 2022-07-20 00:00 | BACLOFEN | [facility] | + + + + | 2023-02-03 00:00 | BACLOFEN | [facility] | + + + + | 2017-05-08 00:00 | LORAZEPAM | [facility] | + + + + | 2022-07-20 00:00 | NITROGLYCERIN | [facility] | + + + + | 2023-02-03 00:00 | NITROGLYCERIN | [facility] | + + + + | 2022-07-20 00:00 | predniSONE | [facility] | + + + + | 2023-02-03 00:00 | predniSONE | [facility] | + + + + | 2022-07-20 00:00 | RANITIDINE HCL | [facility] | + + + + | 2023-02-03 00:00 | RANITIDINE HCL | [facility] | + + + + | 2022-07-20 00:00 | HYDROCHLOROTHIAZIDE | [facility] | + + + + | 2023-02-03 00:00 | HYDROCHLOROTHIAZIDE | [facility] | + + + + | 2022-07-20 00:00 | CARVEDILOL | [facility] | + + + + | 2023-02-03 00:00 | CARVEDILOL | [facility] | + + + + | 2022-07-20 00:00 | NITROGLYCERIN | [facility] | + + + + | 2023-02-03 00:00 | NITROGLYCERIN | [facility] | + + + + | 2019-04-26 00:00 | AZITHROMYCIN | [facility] | + + + + | 2018-03-29 00:00 | CLOPIDOGREL BISULFATE | [facility] | + + + + | 2019-08-14 00:00 | CLOPIDOGREL BISULFATE | [facility] | + + + + | 2019-04-26 00:00 | METHYLPREDNISOLONE | [facility] | + + + + | 2022-07-20 00:00 | AMOXICILLIN | [facility] | + + + + | 2023-02-03 00:00 | AMOXICILLIN | [facility] | + + + + | 2022-07-20 00:00 | ASPIRIN | [facility] | + + + + | 2023-02-03 00:00 | ASPIRIN | [facility] | + + + + | 2022-07-20 00:00 | CLOPIDOGREL BISULFATE | [facility] | + + + + | 2023-02-03 00:00 | CLOPIDOGREL BISULFATE | [facility] | + + + + | 2022-07-20 00:00 | GABAPENTIN | [facility] | + + + + | 2023-02-03 00:00 | GABAPENTIN | [facility] | + + + + | 2022-07-20 00:00 | LITHIUM CARBONATE | [facility] | + + + + | 2023-02-03 00:00 | LITHIUM CARBONATE | [facility] | + + + + | 2018-02-03 00:00 | predniSONE | [facility] | + + + + | 2022-07-20 00:00 | ISOSORBIDE MONONITRATE | [facility] | + + + + | 2023-02-03 00:00 | ISOSORBIDE MONONITRATE | [facility] | + + + + | 2022-07-20 00:00 | HYDROCHLOROTHIAZIDE | [facility] | + + + + | 2023-02-03 00:00 | HYDROCHLOROTHIAZIDE | [facility] | + + + + | 2022-07-20 00:00 | DULOXETINE HCL | [facility] | + + + + | 2023-02-03 00:00 | DULOXETINE HCL | [facility] | + + + + | 2022-07-20 00:00 | ATORVASTATIN CALCIUM | [facility] | + + + + | 2023-02-03 00:00 | ATORVASTATIN CALCIUM | [facility] | + + + + | 2022-07-20 00:00 | ATORVASTATIN | [facility] | + + + + | 2023-02-03 00:00 | ATORVASTATIN | [facility] | + + + + | 2022-07-20 00:00 | ALBUTEROL SULFATE | [facility] | + + + + | 2023-02-03 00:00 | ALBUTEROL SULFATE | [facility] | + + + + | 2017-06-25 00:00 | CYCLOBENZAPRINE HCL | [facility] | + + + + | 2018-06-14 00:00 | TRAMADOL HCL | [facility] | + + + + | 2013-05-03 00:00 | NAPROXEN SODIUM | [facility] | + + + + | 2013-10-28 00:00 | HYDROCODONE | [facility] | | | BIT/ACETAMINOPHEN | | + + + + | 2022-07-20 00:00 | HYDROCODONE | [facility] | | | BIT/ACETAMINOPHEN | | + + + + | 2023-02-03 00:00 | HYDROCODONE | [facility] | | | BIT/ACETAMINOPHEN | | + + + + | 2023-02-03 00:00 | HYDROCODONE | [facility] | | | BIT/ACETAMINOPHEN | | + + + + | 2018-02-03 00:00 | ALBUTEROL SULFATE | [facility] | + + + + | 2022-07-20 00:00 | ALBUTEROL SULFATE | [facility] | + + + + | 2023-02-03 00:00 | ALBUTEROL SULFATE | [facility] | + + + + | 2022-07-20 00:00 | METFORMIN HCL | [facility] | + + + + | 2023-02-03 00:00 | METFORMIN HCL | [facility] | + + + + | 2018-03-29 00:00 | METOPROLOL SUCCINATE | [facility] | + + + + | 2022-07-20 00:00 | METOPROLOL SUCCINATE | [facility] | + + + + | 2023-02-03 00:00 | METOPROLOL SUCCINATE | [facility] | + + + + | 2022-07-20 00:00 | METOPROLOL SUCCINATE | [facility] | + + + + | 2023-02-03 00:00 | METOPROLOL SUCCINATE | [facility] | + + + + | 2022-07-20 00:00 | METOPROLOL TARTRATE | [facility] | + + + + | 2023-02-03 00:00 | METOPROLOL TARTRATE | [facility] | + + + + | 2022-07-20 00:00 | METOPROLOL TARTRATE | [facility] | + + + + | 2023-02-03 00:00 | METOPROLOL TARTRATE | [facility] | + + + + | 2019-04-26 00:00 | PROMETHAZINE HCL/CODEINE | [facility] | + + + + | 2018-04-10 00:00 | PROMETHAZINE HCL | [facility] | + + + + | 2014-04-23 00:00 | ACETAMINOPHEN WITH CODEINE | [facility] | | | | | + + + + | 2022-07-20 00:00 | HYDROXYZINE HCL | [facility] | + + + + | 2023-02-03 00:00 | HYDROXYZINE HCL | [facility] | + + + + Problems + + + + | date | description | facility | + + + + | 2016-01-09 00:00 | Superficial | [facility] | | | thrombophlebitis | | + + + + | 2016-01-14 00:00 | Phlebitis | [facility] | + + + + | 2016-01-14 00:00 | Pain in lower extremity | [facility] | | | due to sciatica | | + + + + | 2016-01-14 00:00 | Pain of left lower | [facility] | | | extremity | | + + + + | 2017-01-19 00:00 | Chest pain | [facility] | + + + + | 2017-01-19 00:00 | Thoracic lymphadenopathy | [facility] | + + + + | 2017-01-19 00:00 | Elevated troponin level | [facility] | + + + + | 2017-01-26 00:00 | Chest pain | [facility] | + + + + | 2017-05-06 00:00 | Elevated troponin I level | [facility] | + + + + | 2017-06-25 00:00 | Muscle cramps | [facility] | + + + + | 2017-06-27 00:00 | Sarcoidosis | [facility] | + + + + | 2017-06-27 00:00 | Panic attack | [facility] | + + + + | 2017-06-27 00:00 | Nonspecific chest pain | [facility] | + + + + | 2017-12-05 00:00 | Patient left without being | [facility] | | | seen | | + + + + | 2017-12-10 00:00 | Encounter for medical | [facility] | | | screening examination | | + + + + | 2018-02-23 00:00 | Non-ST elevation (NSTEMI) | [facility] | | | myocardial infarction | | + + + + | 2018-02-23 00:00 | Back pain | [facility] | + + + + | 2018-03-29 00:00 | Encounter for medication | [facility] | | | refill | | + + + + | 2018-04-10 00:00 | Depression | [facility] | + + + + | 2018-04-10 00:00 | Nausea | [facility] | + + + + | 2018-06-14 00:00 | Atypical chest pain | [facility] | + + + + | 2018-06-14 00:00 | History of sarcoidosis | [facility] | + + + + | 2018-06-18 00:00 | Sprain of left foot | [facility] | + + + + | 2018-10-23 00:00 | Non-cardiac chest pain | [facility] | + + + + | 2019-04-26 00:00 | Bronchitis | [facility] | + + + + | 2021-09-29 00:00 | Pleurodynia | [facility] | + + + + | 2023-02-03 00:00 | Abdominal pain | [facility] | + + + + Procedures No information. Results/Labs +--------+--------+ +---------+--------+---------+ | test | date | facility | value | unit | notes | +--------+--------+ +---------+--------+---------+ + + | Result panel 1 | + + + + + +-------+ + + | | 2023-02-03 | [facility] | 7.7 | (missing) | (missing) | | (unavailable | 17:35:07 | [place] | | | | | ) | [...]
[~2023-05-21 22:26] MED LIST changes: +HYDROCODON-ACE1 EA11 PO
--- OUTSIDE RECORDS SUMMARY | 2023-05-21 22:32 | XMS ---
PreManage Notification: DOUGLAS CAMPBELL Security Fisheries Technician Events No recent Security Events currently on file CRITERIA MET - Group Notification - PDMP CARE PROVIDERS PAIGE PATRICK Physician Traffic Coordinator 06/15/2018-Current PHONE: [phone] JUVENAL PADILLA Nurse Practitioner: Psychiatric/Mental Health Current PHONE: Unknown VICTOR HUGO DOWNS [facility] 10/01/2021-Current PHONE: Unknown Darrell has no Care Guidelines for this patient. Care History Medical/Surgical 05/14/2019 [facility] - [facility] REFERRAL MADE- FOR CLOSE FOLLOW UP TO ED VISIT. 06/19/2018 [facility] - UPDATE- 10/26/18-PATIENT WAS LAST SEEN BY PCP 06/10/18 AND HAD A FOLLOW UP APT ON 07/08/18 AND NO SHOWED TO FOLLOW UP APT. - CHW CONTACTED PATIENT AND STATED TO FOLLOW UP WITH PCP AFTER RECENT ED VISIT AND WENT OVER THE ED VS PCP GUIDELINE USAGE. PATIENT IS AWARE. - LAURALY CURRENTLY HAS ELZBIETA PATRICK PCP. - PATIENT HAS FOLLOW UP WITH PCP IN THE OFFICE BUT NEEDS TO SEE UTILITY PORTER. - CHW REFERRING PATIENT TO [facility] CASE MANAGEMENT TO HELP PATIENT WITH FURTHER MANAGEMENT OF HEALTH. - [facility] CASE MANAGEMENT CAN BE CONTACTED- ADOLFO- [phone]. [place] VISIT COUNT (12 MO.) 3 [facility] . TOTAL 3 NOTE: Visits indicate total known visits. ED/C VISIT TRACKING (12 MO.) 05/21/2023 22:27 [place] TYPE: Emergency COMPLAINT: - CP 02/03/2023 16:09 [place] TYPE: Emergency COMPLAINT: - ABD PAIN DIAGNOSES: - Allergy status to other drugs, medicaments and biological substances - Bronchitis, not specified as acute or chronic - Essential (primary) hypertension - [facility] (current) use of aspirin - Old myocardial infarction - Other salvage determiner (current) drug therapy - Personal history of nicotine dependence - Upper abdominal pain, unspecified 07/20/2022 05:37 [place] TYPE: Emergency COMPLAINT: - L FOOT INJ DIAGNOSES: - Allergy status to other drugs, medicaments and biological substances - Essential (primary) hypertension - [facility] (current) use of aspirin - 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
[2023-05-21 22:58] LABS: BASOPHILS 0.7 % (0-2); EOSINOPHILS 4.2 % (0-6); HEMATOCRIT 40.9 % (35.0-50.0); HEMOGLOBIN 13.2 g/dL (12.0-18.0); LYMPHOCYTES 20.3 % (24-44); MCH 28.4 (27-36); MCHC 32.2 g/dl (30-36); MCV 88.1 fl (81-99); MONOCYTES 17.2 % (0-12); NEUTROPHILS 57.6 % (39-80); PLATELET COUNT 424 K/uL (140-440); RBC 4.64 M/ul (4.3-5.7); RDW 14.6 (10.5-15.0)
[2023-05-21 23:10] LABS: ALBUMIN 3.8 g/dL (3.4-5.0); ANION GAP 13.2 (7-21); BILIRUBIN, TOTAL 0.4 ng/dL (0.2-1.0); BUN/CREATININE RATIO 7.75 (6.0-28.6); CALCIUM 9.7 mg/dL (8.5-10.1); CREATININE, SERUM 1.16 mg/dL (0.55-1.02); MAGNESIUM 1.7 mg/dL (1.8-2.4); POTASSIUM 3.2 mmol/L (3.5-5.1); PROTEIN, TOTAL 7.6 g/dL (6.4-8.2)
[2023-05-22 04:10] VITALS: BP 170/100
[2023-05-22 04:11] LABS: INFLUENZA B NAA NEGATIVE (NEGATIVE); RESPIRATORY SYNCYTIAL VIR NAA NEGATIVE (NEGATIVE)
--- NOTE | 2023-05-22 14:23 | EKG ---
[facility] [address] [place] [address] Signed Normal sinus rhythm Moderate voltage criteria for LVH, may be normal variant ( R in aVL , [place] product ) Borderline ECG When compared with ECG of 29-SEP-2021 06:30, Vent. rate has increased BY 35 BPM Confirmed by Andres Brown MD () on 05/22/2023 2:22:56 PM Electronically Signed By: ANDRES BROWN MD 05/22/23 1423 PATIENT NAME: DOUGLAS CAMPBELL Electrocardiogram DATE OF : 85 PHYSICIAN: ANDRES BROWN MD REPORT #: [id number] REPORT IS CONFIDENTIAL AND NOT TO BE RELEASED WITHOUT AUTHORIZATION
== END 2023-05-22 04:10 | disposition short-term general hospital (02) ==
LOC: ED 22:26
PROVIDERS: Emergency Medicine
DX: I21.4 Non-ST elevation (NSTEMI) myocardial infarction (principal); D86.9 Sarcoidosis, unspecified; Z20.822 Contact with and (suspected) exposure to COVID-19; I10 Essential (primary) hypertension; F31.9 Bipolar disorder, unspecified; Z87.891 Personal history of nicotine dependence; Z88.8 Allergy status to other drugs, medicaments and biological substances; Z79.899 Other long term (current) drug therapy; Z79.82 Long term (current) use of aspirin
CPT/HCPCS: 36415; 71045; 71260; 80053; 83735; 84484; 84703; 85025; 87502; 93005; 93010; 99285-25; C9803; J1644; J2270; Q9967; U0002